=== PATIENT | female | born 1980 | race Two or more races ===

== ENCOUNTER 2020-02-29 14:47 | Outpatient (REF) | payer OTHER, SELFPAY | END 2020-02-29 14:48 | disposition home or self-care (01) | LOC: HO.LAB 14:47 | PROVIDERS: Visit Provider Internal Medicine | DX: Z20.822 Contact with and (suspected) exposure to COVID-19 (principal) | CPT/HCPCS: 36415; C9803; U0003 ==

== ENCOUNTER 2023-12-26 13:31 | Outpatient (AMB) | payer OTHER, SELFPAY ==
[2023-12-26 13:33] VITALS: BP 104/90; PULSE 95; O2SAT 96; BMI 21.6
--- NOTE | 2023-12-26 13:33 | MHC.PC.OV ---
Vital Signs 12/26/23 13:33 Height 5 ft 5 in Weight 130 lb 0.6 oz BMI 21.6 BP 104/90 H Blood Pressure Location Lt brachial Position Sitting Pulse 95 Pulse Source Pulse Oximeter Pulse Oximetry (%) 96 Oxygen Delivery Method Room Air Intake Visit Reasons: New Patient Traffic Supervisor Required: Yes Traffic Supervisor Language: Welsh Allergies fentanyl patch Allergy (Mild, Uncoded 12/26/23 13:59) Dizziness Medication List - Last Reconciled 12/26/23 by Silvia Grady PA-C baclofen 10 mg PO TID bupropion HCl XL 300 mg PO QAM butalbital-acetaminophen 50-325 mg 1 tab PO Q4H PRN diaper,brief,adult,disposable (Wings Choice Plus Adult Briefs) As directed diclofenac sodium 1% 2 grams topical BID diphenhydramine HCl 50 mg PO BEDTIME diphenoxylate-atropine 2.5-0.025 mg 1 tab PO QID PRN dronabinol 5 mg PO BID duloxetine 30 mg PO DAILY gabapentin 600 mg PO TID hydrocortisone 2.5% 1 appl topical BID PRN hydroxyzine HCl 25 mg PO TID PRN lidocaine 5% 1 patch topical DAILY lidocaine 4% 1 appl topical DAILY PRN loratadine 10 mg PO DAILY lorazepam 0.5 mg PO BEDTIME PRN megestrol 5 mL PO DAILY multivitamin 1 tab PO DAILY omeprazole 40 mg PO DAILY sucralfate 10 mL PO QID sumatriptan succinate 50 mg PO Q2-4H PRN topiramate 50 mg PO BID tramadol 50 mg PO TID PRN trazodone 50 mg PO BEDTIME PRN Tobacco use date assessed: 12/26/23 Dental Screening Dental Screen Date: 12/26/23 Did you have a dental visit in the last 12 months?: Yes Did you have a dental problem in the last 6 months where you did not have access to dental care?: No Was dental information given to patient?: Patient has dentist HPI New Patient HPI Details 43-year-old female coming to the office for the 1st time. In review of the notes, patient follows with gynecology/oncology with [facility] for history of cervical cancer underwent treatment in [place] in 2016 with cisplatin and whole pelvic radiation and discharge to normal gynecological care. She was last seen by Gynecology/Oncology 10/21/2023 after having some vaginal bleeding at which time Pap was collected and recommended to follow up in 1 year. Patient was seen by [facility] last seen 2021 for history of pericarditis with pericardial effusion and chronic chest pain CT of the chest was negative and EKG normal advised to undergo ECHO. Patient was also seen by [facility] last seen 03/04/2022 for chronic headaches advised to undergo MRI. Patient is unsure if she underwent echocardiogram or MRI in the past in his overall a poor historian regarding her health. She does follow with a psychiatrist and therapist for ongoing depression and anxiety and has a sleep study scheduled for January. She was seen in [facility] and was given referral to [facility] and referred for mammogram. She has not yet had a colonoscopy despite being scheduled for 1 with [facility]. Ambulates at baseline with a cane. [facility] Medical History Uterine cancer Social History Housing: House Patient Tobacco Use Status: Never used Tobacco service: No Current occupational status: disabled Cognitive needs: No Hearing needs: No Vision needs: No Questionnaire PHQ-9 Over the last 2 weeks, how often have you been bothered by any of the following problems? 1. Little interest or pleasure in doing things: more than half the days 2. Feeling down, depressed, or hopeless: more than half the days 3. Trouble falling or staying asleep, or sleeping too much: several days 4. Feeling tired or having little energy: several days 5. Poor appetite or overeating: several days 6. Feeling bad about yourself - or that you are a failure or have let yourself or your family down: several days 7. Trouble concentrating on things, such as reading the newspaper or watching television: more than half the days 8. Moving or speaking so slowly that other people could have noticed. Or the opposite - being so fidgety or restless that you have been moving around a lot more than usual: several days 9. Thoughts that you would be better off or of hurting yourself in some way: not at all Total score: 11 Depression Screening Interpretation: Negative Depression Screening Done: Yes 39903 - PHQ-9 Billing: Yes Source: Developed by Drs. Vera Tarvis Kurt Kroenke and colleagues, with an educational florence from [employer]. Thrive Questionnaire Date Thrive assessed: 12/26/23 I am a: Patient What is your living situation today?: I choose not to answer this question Within the past 12 months, did the food you bought not last and you didn't have the money to get more?: Sometimes True Within the past 12 months, did you worry whether your food would run out before you got money to buy more?: Sometimes True Do you have trouble paying for medicines?: I choose not to answer this question Do you have trouble getting transportation to medical appointments?: I choose not to answer this question Do you have trouble paying your heating and electricity bill?: I choose not to answer this question Do you have trouble taking care of your child, family member or friend?: No Do you have trouble with day-to-day activities such as bathing, preparing meals, shopping, managing finances, etc.?: No Are you currently unemployed and looking for a job?: Yes Are you interested in more education?: I choose not to answer this question Please select the resources that you would like help with: None Currently or been in a relationship where the following occur: No concerns reported THRIVE Score: 2 AUDIT C Alcohol Use Questionnaire (AUDIT-C) 1. How often do you have a drink containing alcohol?: Never 3. How often do you have six or more drinks on one occasion?: Never Total Score: 0 HARVINDER-7 AMB Questionnaire HARVINDER-7 Date HARVINDER - 7 assessed: 12/26/23 Feeling nervous, anxious, or on edge: 1 = Several days Not being able to stop or control worryin = Several days Worrying too much about different things: 1 = Several days Trouble relaxin = More than half the days Being so restless that it is hard to sit still: 2 = More than half the days Becoming easily annoyed or irritable: 2 = More than half the days Feeling afraid as if something awful might happen: 1 = Several days Total HARVINDER-7 score (0-4 normal; 5-9 mild; 10-14 moderate; 15-21 severe): 10 Source: Developed by Vera Light Kurt Kroenke and colleagues, with an educational florence from [employer]. HARVINDER-7 Assessment Billing HARVINDER-7 Assessment Tool: HARVINDER-7 Assessment 51183 Review of Systems Const Denies body aches, Denies fatigue, Denies fever(s), Denies frequent falls, Denies headache(s) and Denies weakness Eyes Reports no additional complaints and Denies change in vision ENT Denies dizziness, Denies facial pain, Denies headache(s) and Denies nasal congestion Card Reports chest pain (Chronic), Denies syncope, Denies irregular heart rhythm, Denies leg edema, Denies lightheadedness and Denies dyspnea Resp Denies cough and Denies dyspnea GI Denies constipation, Denies dyspepsia, Reports diarrhea, Denies nausea and Denies vomiting Denies urinary frequency, Denies dysuria, Denies urinary hesitancy and Denies urinary urgency Musc Denies back pain and Denies myalgias Skin/Breast Reports system reviewed and no additional complaints, except as documented Neuro Denies dizziness, Denies syncope, Denies frequent falls, Denies headache(s) and Denies weakness Psych Reports no additional complaints Endo Denies fatigue Physical exam (Primary Care) Vital Signs: Last Vital Signs Pulse 95 12/26/23 13:33 BP 104/90 H 12/26/23 13:33 Pulse Ox 96 12/26/23 13:33 Oxygen Delivery Method Room Air 12/26/23 13:33 BMI result Body Mass Index 21.6 Tobacco/Smoking Status: Tobacco use Status Tobacco use date assessed 12/26/23 12/26/23 13:38 Patient Tobacco Use Status Never used Tobacco 12/26/23 13:55 PHQ-9: PHQ-9 Score PHQ-9: Total score 11 12/26/23 13:55 Depression Screening Interpretation: Negative Thrive Assessment: Date of Thrive Assessment Date Thrive assessed 12/26/23 12/26/23 13:38 Currently or been in a relationship where the following occur: No concerns reported Const General: cooperative, healthy appearing, comfortable and no acute distress Orientation/consciousness: patient oriented x3 HENMT Head: Yes normocephalic Ears: hearing grossly normal bilaterally General nose exam: Normal external nose present Eyes General: appearance normal, both eyes and all related structures Conjunctivae: conjunctivae normal Neck Neck: Yes full ROM and Yes no lymphadenopathy Resp Effort & Inspection: normal respiratory effort Auscultation: clear to auscultation bilaterally, no crackles, no rales, no rhonchi and no wheezes Cardio Rate: regular rate Rhythm: regular rhythm Skin General skin exam: no rashes or lesions noted Neuro General: patient oriented x3 Gait exam (Neuro): Normal gait present Extrem General: Yes normal to inspection, Yes full ROM and No edema Psych Affect: normal affect Attitude: cooperative Insight: Good insight present (Psych) Judgement: Good judgement present (Psych) Coding Level of Care Code New Pt Level 4 (70752) Diagnoses Depression F32.A Anxiety F41.9 Uterine cancer C55 GERD (gastroesophageal reflux disease) K21.9 Migraine G43.909 Atypical chest pain R07.89 Additional Codes HARVINDER-7 Assessment Billing - HARVINDER-7 Assessment Tool: HARVINDER-7 Assessment 00612 ([id number]) PHQ-9 - 12903 - PHQ-9 Billing: Yes ([id number]) Assessment & Plan Assessment & Plan (1) Depression: Comment: Has therapist Code(s): F32.A - Depression, unspecified Category: Medical Plan: Continue to follow with therapist and continue on current medication regimen as prescribed by Psychiatry. (2) Anxiety: Comment: therapist and psychiatrist Code(s): F41.9 - Anxiety disorder, unspecified Category: Medical Plan: Continue to follow with therapist and psychiatrist twice weekly and continue on current medication regimen (3) Uterine cancer: Comment: Initial diagnosis and treatment in [place] in 2016 having weekly cisplatin in whole pelvic radiation followed by 6 cycles of carbo/Taxol CT scan of abdomen and pelvis done 12/18/2015 no evidence of metastatic disease in remission since 2016 Code(s): C55 - Malignant neoplasm of uterus, part unspecified Category: Medical Plan: Continue to follow with gynecology oncology advised to follow up yearly for routine Pap smears. (4) GERD (gastroesophageal reflux disease): Code(s): K21.9 - Gastro-esophageal reflux disease without esophagitis Category: Medical Plan: Avoid trigger foods such as citrus, tomato products, soda, caffeine, spicy foods and other foods that may be irritating to your stomach. Avoid laying flat 3-4 hours after eating and elevate the head of the bed 30 degrees to prevent acid from moving into the esophagus. Continue on omeprazole 40 (5) Migraine: Code(s): G43.909 - Migraine, unspecified, not intractable, without status migrainosus Category: Medical Plan: Previously seen by [facility] and was advised to have MRI which was never completed and has not been rescheduled. Advised patient to follow up with her neurologist to have an additional study. Currently on topiramate given by Neurology. (6) Atypical chest pain: Code(s): R07.89 - Other chest pain Category: Medical Plan: Patient having atypical chest pain nonexertional without any other symptoms. Chest pain will come and go and appears to be chronic. She has been evaluated by [facility] in the past last seen 2021 chest pain was not thought to be cardiac at that time and plan to have echo performed. Patient unclear if echo was performed and would like a referral to a new anesthesia technician. She was referred to [facility] by [facility] and advised to reach out an make this appointment. Patient agrees to follow up if appointment cannot be made. Plan Given that patient is a poor historian we will continue to reach out to [facility] for records. This note was constructed using voice recognition software. While every effort has been made to ensure accuracy and automotive vehicle inspector, still areas may have been included sometimes these areas may affect the content or meeting of the given symptoms. Total time spent caring for the patient today was 30 minutes. This includes time spent before the visit reviewing the chart, time spent during the visit, and time spent after the visit and documentation. Orders: Referrals Gastroenterology Referral Z12.11 - Encounter for screening for malignant neoplasm of colon
== END 2023-12-26 14:24 | disposition home or self-care (01) ==
DX: F32.A Depression, unspecified (principal); F41.9 Anxiety disorder, unspecified; C55 Malignant neoplasm of uterus, part unspecified; K21.9 Gastro-esophageal reflux disease without esophagitis; G43.909 Migraine, unspecified, not intractable, without status migrainosus; R07.89 Other chest pain

== ENCOUNTER → 2023-12-26 13:31 | Outpatient (BNVA) | payer OTHER, SELFPAY | DX: F32.A Depression, unspecified (principal); F41.9 Anxiety disorder, unspecified; C55 Malignant neoplasm of uterus, part unspecified; K21.9 Gastro-esophageal reflux disease without esophagitis; G43.909 Migraine, unspecified, not intractable, without status migrainosus; R07.89 Other chest pain | CPT/HCPCS: 96127; 99202 ==

== ENCOUNTER 2024-01-30 14:03 | Outpatient (AMB) | payer OTHER, SELFPAY ==
--- NOTE | 2024-01-30 14:07 | MHC.PC.OV ---
Vital Signs 01/30/24 14:08 Height 5 ft 5 in Weight 130 lb 2 oz BMI 21.7 BP 122/76 Blood Pressure Location Rt brachial Position Sitting Pulse 95 Pulse Source Pulse Oximeter Pulse Oximetry (%) 96 Oxygen Delivery Method Room Air Intake Visit Reasons: headaches and pain on her neck Intake Note: Patient is here to follow up on Headaches and pain in neck that radiates down to shoulder. Equity Manager Required: Yes Equity Manager Language: Strategic Sourcing Specialist Name: Arely Barbosa ([id number]) Information Interpreted: non-clinical & clinical Duct Layer: Not Required per policy Accompanied by: Self / Same As Patient Allergies fentanyl patch Allergy (Mild, Uncoded 01/30/24 14:08) Dizziness Medication List - Last Reconciled 01/30/24 by Silvia Grady PA-C baclofen 10 mg PO TID bupropion HCl XL 300 mg PO QAM butalbital-acetaminophen 50-325 mg 1 tab PO Q4H PRN diaper,brief,adult,disposable (Wings Choice Plus Adult Briefs) As directed diclofenac sodium 1% 2 grams topical BID diphenhydramine HCl 50 mg PO BEDTIME diphenoxylate-atropine 2.5-0.025 mg 1 tab PO QID PRN dronabinol 5 mg PO BID duloxetine 30 mg PO DAILY gabapentin 600 mg PO TID hydrocortisone 2.5% 1 appl topical BID PRN hydroxyzine HCl 25 mg PO TID PRN lidocaine 5% 1 patch topical DAILY lidocaine 4% 1 appl topical DAILY PRN loratadine 10 mg PO DAILY lorazepam 0.5 mg PO BEDTIME PRN megestrol 5 mL PO DAILY multivitamin 1 tab PO DAILY omeprazole 40 mg PO DAILY sucralfate 10 mL PO QID sumatriptan succinate 50 mg PO Q2-4H PRN topiramate 50 mg PO BID tramadol 50 mg PO TID PRN trazodone 50 mg PO BEDTIME PRN Tobacco use date assessed: 01/30/24 Dental Screening Dental Screen Date: 12/26/23 HPI headaches and pain on her neck HPI Details 43-year-old female with past medical history of uterine cancer, anxiety, depression, migraine, GERD last seen December 2023 coming in for acute problem. Patient is Niuean-speaking only and language interpreter was used for the duration of this visit [id number] Angel. Patient has a long history of migraines and was previously on preventative and abortive medication given by her PCP. Patient was also evaluated by Neurology in the past and had medication prescribed by them. She states she has been having headaches intermittently and we will have occasional migraines. She will have migraines at least once weekly and sometimes last several days. She does mentioned in the last several weeks they have been decreasing in frequency and intensity. She states she mainly gets the migraines at night and states she also feels hot inside at night but denies any sweating or fevers. She states she has been having this heat feeling since she finished chemoradiation in 2016. She also mentions having right-sided neck and shoulder pain which has been ongoing for the last 2 years since she had a fall in the bathtub and has never had any imaging or workup for this concern. [facility] Medical History Uterine cancer Social History Housing: House Alcohol intake: never Patient Tobacco Use Status: Never used Tobacco e-Cigarette/Vaping Use: Never Used Second Hand Smoke Exposure: No service: No Current occupational status: disabled Cognitive needs: No Hearing needs: No Vision needs: No Questionnaire Thrive Questionnaire Date Thrive assessed: 12/26/23 I am a: Patient What is your living situation today?: I choose not to answer this question Within the past 12 months, did the food you bought not last and you didn't have the money to get more?: Sometimes True Within the past 12 months, did you worry whether your food would run out before you got money to buy more?: Sometimes True Do you have trouble paying for medicines?: I choose not to answer this question Do you have trouble getting transportation to medical appointments?: I choose not to answer this question Do you have trouble paying your heating and electricity bill?: I choose not to answer this question Do you have trouble taking care of your child, family member or friend?: No Do you have trouble with day-to-day activities such as bathing, preparing meals, shopping, managing finances, etc.?: No Are you currently unemployed and looking for a job?: Yes Are you interested in more education?: I choose not to answer this question Please select the resources that you would like help with: None Currently or been in a relationship where the following occur: No concerns reported THRIVE Score: 2 HARVINDER-7 AMB Questionnaire HARVINDER-7 Date HARVINDER - 7 assessed: 12/26/23 Source: Developed by Drs. Cale Jaramillo, Vera Lopez, Enrico De Dios and colleagues, with an educational florence from [employer]. Review of Systems Const Details: Feels ?hot? at nighttime Denies body aches, Denies chills, Denies fever(s), Reports headache(s), Denies night sweats, Denies poor appetite and Denies weight loss Eyes Reports no additional complaints ENT Denies dizziness and Reports headache(s) Card Denies chest pain, Denies syncope, Denies edema, Denies irregular heart rhythm, Denies lightheadedness and Denies dyspnea Resp Denies cough and Denies dyspnea GI Denies abdominal pain, Denies constipation, Denies diarrhea, Denies nausea and Denies vomiting Reports no additional complaints Musc Details: Right-sided neck pain and right shoulder pain Reports no additional complaints and Denies abnormal gait Skin/Breast Reports system reviewed and no additional complaints, except as documented Neuro Denies abnormal gait, Denies dizziness, Denies syncope and Reports headache(s) Psych Reports no additional complaints Physical exam (Primary Care) Tobacco/Smoking Status: Tobacco use Status Tobacco use date assessed 12/26/23 12/26/23 13:38 Patient Tobacco Use Status Never used Tobacco 01/30/24 14:07 Thrive Assessment: Date of Thrive Assessment Date Thrive assessed 12/26/23 12/26/23 13:38 Currently or been in a relationship where the following occur: No concerns reported Const General: cooperative, healthy appearing, comfortable and no acute distress Orientation/consciousness: patient oriented x3 HENMT Head: Yes normocephalic Ears: hearing grossly normal bilaterally General nose exam: Normal external nose present Eyes General: appearance normal, both eyes and all related structures Conjunctivae: conjunctivae normal Neck Other: Tenderness to palpation over right trapezius muscle and sternocleidomastoid Neck: Yes full ROM and Yes no lymphadenopathy Resp Effort & Inspection: normal respiratory effort Auscultation: clear to auscultation bilaterally, no crackles, no rales, no rhonchi and no wheezes Cardio Rate: regular rate Rhythm: regular rhythm Skin General skin exam: no rashes or lesions noted Neuro General: patient oriented x3 Gait exam (Neuro): Normal gait present Extrem Other: Tenderness to palpation over entirety of right shoulder primarily in the AC joint. General: Yes normal to inspection, Yes full ROM and No edema Psych Affect: normal affect Attitude: cooperative Insight: Good insight present (Psych) Judgement: Good judgement present (Psych) Coding Level of Care Code Est Pt Level 3 (60341) Diagnoses Right shoulder pain M25.511 Neck pain M54.2 Migraine G43.909 Assessment & Plan Assessment & Plan (1) Right shoulder pain: Code(s): M25.511 - Pain in right shoulder Category: Medical Plan: Ordered for x-ray for further evaluation. Advised patient she can use baclofen as needed at bedtime for nighttime pain. Referral placed to physical therapy. (2) Neck pain: Code(s): M54.2 - Cervicalgia Category: Medical Plan: Ordered for x-ray for further evaluation. Advised patient she can use baclofen as needed at bedtime for nighttime pain. Referral placed to physical therapy. (3) Migraine: Code(s): G43.909 - Migraine, unspecified, not intractable, without status migrainosus Category: Medical Plan: Patient has history of migraines and was previously being evaluated by a neurologist and would like to transfer care. Referral placed for Neurology today. We will restart on topiramate daily for migraine prevention and sumatriptan as needed for abortive medicine. Patient was previously on this regimen and found it helpful. Plan This note was constructed using voice recognition software. While every effort has been made to ensure accuracy and machine ii engraver, still areas may have been included sometimes these areas may affect the content or meeting of the given symptoms. Total time spent caring for the patient today was 20 minutes. This includes time spent before the visit reviewing the chart, time spent during the visit, and time spent after the visit and documentation. Orders: Orders XR shoulder RT min 2V Today M25.511 - Pain in right shoulder, M54.2 - Cervicalgia XR cervical spine 2V Today M25.511 - Pain in right shoulder, M54.2 - Cervicalgia PT Evaluation and Treatment Today M25.511 - Pain in right shoulder, M54.2 - Cervicalgia Referrals Neurology Referral G43.909 - Migraine, unspecified, not intractable, without status migrainosus Medications: New sumatriptan succinate do not exceed 4 doses per 24 hrs 50 mg PO Q2-4H PRN 14 tabs 1RF migraine headache topiramate 25 mg PO DAILY 30 tabs 1RF Changed From baclofen 10 mg PO TID To baclofen 10 mg PO BEDTIME PRN 14 tabs 0RF muscle spasm
[2024-01-30 14:08] VITALS: BP 122/76; PULSE 95; O2SAT 96; BMI 21.7
== END 2024-01-30 14:58 | disposition home or self-care (01) ==
DX: M25.511 Pain in right shoulder (principal); M54.2 Cervicalgia; G43.909 Migraine, unspecified, not intractable, without status migrainosus

== ENCOUNTER → 2024-01-30 14:03 | Outpatient (BNVA) | payer OTHER, SELFPAY | DX: M54.2 Cervicalgia (principal); M25.511 Pain in right shoulder; K21.9 Gastro-esophageal reflux disease without esophagitis; G43.909 Migraine, unspecified, not intractable, without status migrainosus | CPT/HCPCS: 99212 ==

== ENCOUNTER 2024-03-29 16:00 | Outpatient (AMB) | payer OTHER, SELFPAY ==
--- NOTE | 2024-03-29 16:02 | MHC.PC.OV ---
Vital Signs 03/29/24 16:05 Height 5 ft 5 in Weight 135 lb 4 oz BMI 22.5 BP 122/84 Blood Pressure Location Lt brachial Position Sitting Pulse 84 Pulse Source Pulse Oximeter Temp Source Temporal Artery Scan Pulse Oximetry (%) 95 Oxygen Delivery Method Room Air Intake Visit Reasons: Annual Exam Intake Note: Patient is here today for a physical. Char Filter Operator Helper Required: Yes Char Filter Operator Helper Language: Dominican Accompanied by: Self / Same As Patient Allergies fentanyl patch Allergy (Mild, Uncoded 03/29/24 16:09) Dizziness Medication List - Last Reconciled 03/29/24 by Silvia Grady PA-C baclofen 10 mg PO BEDTIME PRN bupropion HCl XL 300 mg PO QAM butalbital-acetaminophen 50-325 mg 1 tab PO Q4H PRN diaper,brief,adult,disposable ([employer] Adult Briefs) As directed diclofenac sodium 1% 2 grams topical BID diphenhydramine HCl 50 mg PO BEDTIME diphenoxylate-atropine 2.5-0.025 mg 1 tab PO QID PRN dronabinol 5 mg PO BID duloxetine 30 mg PO DAILY hydrocortisone 2.5% 1 appl topical BID PRN hydroxyzine HCl 25 mg PO TID PRN lidocaine 5% 1 patch topical DAILY lidocaine 4% 1 appl topical DAILY PRN loratadine 10 mg PO DAILY lorazepam 0.5 mg PO BEDTIME PRN megestrol 5 mL PO DAILY multivitamin 1 tab PO DAILY omeprazole 40 mg PO DAILY sucralfate 10 mL PO QID sumatriptan succinate 50 mg PO Q2-4H PRN topiramate 25 mg PO DAILY tramadol 50 mg PO TID PRN trazodone 50 mg PO BEDTIME PRN Tobacco use date assessed: 03/29/24 Dental Screening Dental Screen Date: 03/29/24 Did you have a dental visit in the last 12 months?: No Did you have a dental problem in the last 6 months where you did not have access to dental care?: No Was dental information given to patient?: Patient has dentist HPI Annual Exam HPI Details 43-year-old female with past medical history uterine cancer, anxiety, depression, migraine, GERD last seen 01/2024 coming in for annual exam. At her last visit was started on topiramate for migraine prevention and sumatriptan for abortive medication. She has an appointment with Neurology 07/2024. planned giving officer was used for the duration of this visit. Magdy [id number]. Mammogram in [facility] follows regularly pap will be done July Presenting with heartburn, headache, and fever; linked to previous fall injuries. Reports persistent issues with neck due to a fall 2 years ago. Patient has not yet completed the x-rays and physical therapy has not been scheduled at this time. Significant reflux symptoms, particularly in the morning, include heartburn, nausea, and diarrhea, likely aggravated by late eating habits. Headache management initiated with topiramate in past, but further details about the regimen are unclear to the patient; further, headaches have decreased in frequency but remain an issue. Reports sensations of internal fever with varied frequency and duration, linked to a chemotherapy which ended in 2015. Symptoms of dysphagia lead to frequent suffocation sensations. Fibromyalgia diagnosis history corroborates reports of muscle cramps and numbness. [facility] Medical History Uterine cancer Social History Housing: House Alcohol intake: never Patient Tobacco Use Status: Never used Tobacco e-Cigarette/Vaping Use: Never Used Second Hand Smoke Exposure: No service: No Current occupational status: disabled Cognitive needs: No Hearing needs: No Vision needs: No Questionnaire PHQ-9 Over the last 2 weeks, how often have you been bothered by any of the following problems? 1. Little interest or pleasure in doing things: several days 2. Feeling down, depressed, or hopeless: more than half the days 3. Trouble falling or staying asleep, or sleeping too much: more than half the days 4. Feeling tired or having little energy: more than half the days 5. Poor appetite or overeating: more than half the days 6. Feeling bad about yourself - or that you are a failure or have let yourself or your family down: not at all 7. Trouble concentrating on things, such as reading the newspaper or watching television: more than half the days 8. Moving or speaking so slowly that other people could have noticed. Or the opposite - being so fidgety or restless that you have been moving around a lot more than usual: not at all 9. Thoughts that you would be better off or of hurting yourself in some way: not at all Total score: 11 Depression Screening Interpretation: Positive Depression Screening Follow-up: Existing condition and In treatment Depression Screening Done: Yes 20983 - PHQ-9 Billing: Yes Source: Developed by Drs. Cale Jaramillo, Vera Lopez, Enrico De Dios and colleagues, with an educational florence from [employer]. Thrive Questionnaire Date Thrive assessed: 03/29/24 I am a: Patient What is your living situation today?: I have a steady place to live Within the past 12 months, did the food you bought not last and you didn't have the money to get more?: Sometimes True Within the past 12 months, did you worry whether your food would run out before you got money to buy more?: Sometimes True Do you have trouble paying for medicines?: I choose not to answer this question Do you have trouble getting transportation to medical appointments?: I choose not to answer this question Do you have trouble paying your heating and electricity bill?: Yes Do you have trouble taking care of your child, family member or friend?: I choose not to answer this question Do you have trouble with day-to-day activities such as bathing, preparing meals, shopping, managing finances, etc.?: I choose not to answer this question Are you currently unemployed and looking for a job?: Yes Are you interested in more education?: I choose not to answer this question Please select the resources that you would like help with: None Currently or been in a relationship where the following occur: No concerns reported THRIVE Score: 3 AUDIT C Alcohol Use Questionnaire (AUDIT-C) 1. How often do you have a drink containing alcohol?: Never 3. How often do you have six or more drinks on one occasion?: Never Total Score: 0 HARVINDER-7 AMB Questionnaire HARVINDER-7 Date HARVINDER - 7 assessed: 03/29/24 Feeling nervous, anxious, or on edge: 0 = Not at all Not being able to stop or control worryin = Not at all Worrying too much about different things: 1 = Several days Trouble relaxin = Several days Being so restless that it is hard to sit still: 1 = Several days Becoming easily annoyed or irritable: 1 = Several days Feeling afraid as if something awful might happen: 1 = Several days Total HARVINDER-7 score (0-4 normal; 5-9 mild; 10-14 moderate; 15-21 severe): 5 Source: Developed by Drs. Cale Jaramillo, Vera Lopez, Enrico De Dios and colleagues, with an educational florence from [employer]. HARVINDER-7 Assessment Billing HARVINDER-7 Assessment Tool: HARVINDER-7 Assessment 31998 Review of Systems Const Reports body aches, Denies chills, Denies fever(s), Reports headache(s) and Denies poor appetite Eyes Reports no additional complaints ENT Details: heat feeling in the mouth Reports dysphagia, Denies dizziness, Reports headache(s) and Denies odynophagia Card Denies chest pain, Denies syncope, Denies edema, Denies irregular heart rhythm, Denies lightheadedness and Denies dyspnea Resp Denies cough and Denies dyspnea GI Reports abdominal pain, Denies constipation, Reports dysphagia, Reports diarrhea, Denies nausea, Denies odynophagia and Denies vomiting Reports no additional complaints Musc Reports abnormal gait, Reports back pain, Reports arthralgias, Reports muscle cramps and Reports muscle weakness Skin/Breast Reports system reviewed and no additional complaints, except as documented Neuro Reports abnormal gait, Denies dizziness, Denies syncope and Reports headache(s) Psych Reports no additional complaints Physical exam (Primary Care) Vital Signs: Last Vital Signs Pulse 84 03/29/24 16:05 BP 122/84 03/29/24 16:05 Pulse Ox 95 03/29/24 16:05 Oxygen Delivery Method Room Air 03/29/24 16:05 BMI result Body Mass Index 22.5 Tobacco/Smoking Status: Tobacco use Status Tobacco use date assessed 03/29/24 03/29/24 16:03 Patient Tobacco Use Status Never used Tobacco 03/29/24 16:03 e-Cigarette/Vaping Use Never Used 03/29/24 16:03 PHQ-9: PHQ-9 Score PHQ-9: Total score 11 03/30/24 10:12 Depression Screening Interpretation: Positive Depression Screening Follow-up: Existing condition and In treatment Thrive Assessment: Date of Thrive Assessment Date Thrive assessed 03/29/24 03/29/24 16:03 Currently or been in a relationship where the following occur: No concerns reported Const General: cooperative, healthy appearing, comfortable and no acute distress Orientation/consciousness: patient [facility]: Yes normocephalic Ears: hearing grossly normal bilaterally, external ears normal, TM's normal bilaterally and EAC's normal General nose exam: Normal external nose present Face and sinus: Yes normal facial exam and Yes sinuses nontender Mouth: Normal oral and palatal mucosa present and tongue normal Throat: Yes posterior oropharynx normal Eyes General: appearance normal, both eyes and all related structures Conjunctivae: conjunctivae normal Pupils: Equal, round and reactive pupils present EOM: EOMs intact bilaterally and No Nystagmus present Neck Neck: Yes normal visual inspection, Yes full ROM and Yes no lymphadenopathy Chest Other: Pain to palpation over right ribs Chest palpation & inspection: normal inspection of the chest Resp Effort & Inspection: normal respiratory effort Auscultation: clear to auscultation bilaterally, no crackles, no rales, no rhonchi, no wheezes and breath sounds present Cardio Rate: regular rate Rhythm: regular rhythm Peripheral pulses: radial pulses present and dorsalis pedis present GI Inspection: Yes normal to inspection and No Abdominal wall edema Palpation (GI): Soft to palpation, not firm and nontender Auscultation: normal bowel sounds Rectal Exam - Female: deferred General: Yes no CVA tenderness Back/Spine/Pelvis Back: no CVA tenderness Skin General skin exam: no rashes or lesions noted Neuro General: patient oriented x3 Cranial nerves: Yes Equal, round and reactive pupils present, Yes Midline tongue present, Yes Ability to bilaterally elevate shoulders present and No Nystagmus present Gait exam (Neuro): Normal gait present Extrem Other: Tenderness to palpation over entirety of right shoulder and right trapezius muscle. General: Yes normal to inspection, Yes full ROM, No no pedal edema and No edema Psych Speech and movement: Normal speech and movement present Affect: normal affect Insight: Good insight present (Psych) Judgement: Good judgement present (Psych) Coding Level of Care Code Est Pt Level 4 (28783) Est Pt Prev Care 40-64y(93150) Diagnoses GERD (gastroesophageal reflux disease) K21.9 Right shoulder pain M25.511 Migraine G43.909 Depression F32.A Anxiety F41.9 Uterine cancer C55 Annual physical exam Z00.00 Screening for hypercholesterolemia Z13.220 Rib pain on right side R07.81 Fibromyalgia M79.7 Dysphagia R13.10 Additional Codes HARVINDER-7 Assessment Billing - HARVINDER-7 Assessment Tool: HARVINDER-7 Assessment 35216 ([id number]) PHQ-9 - 39286 - PHQ-9 Billing: Yes ([id number]) Assessment & Plan Assessment & Plan (1) GERD (gastroesophageal reflux disease): Code(s): K21.9 - Gastro-esophageal reflux disease without esophagitis Category: Medical Plan: Avoid trigger foods such as citrus, tomato products, soda, caffeine, spicy foods and other foods that may be irritating to your stomach. Avoid laying flat 3-4 hours after eating and elevate the head of the bed 30 degrees to prevent acid from moving into the esophagus. Patient has not been taking omeprazole plan to restart on omeprazole 40 mg for management of GERD. (2) Right shoulder pain: Code(s): M25.511 - Pain in right shoulder Category: Medical Plan: Patient having continued right shoulder pain since a fall 2 years ago in the bathtub but did advise patient to have x-ray done which was not yet completed. Reminded patient about Radiology orders and advised to follow up with physical therapy. (3) Migraine: Code(s): G43.909 - Migraine, unspecified, not intractable, without status migrainosus Category: Medical Plan: Patient is unclear if she is taking her topiramate but does state since starting on a medication she has seen good relief of her migraines. She is also unclear if she is taking her sumatriptan. Confirm headache management plans, including ensuring adherence to topiramate therapy and sumatriptan use as required, and consider a neurology consultation. She was referred to Neurology at her last visit. (4) Depression: Comment: Has therapist Code(s): F32.A - Depression, unspecified Category: Medical Plan: Patient currently following with a therapist and psychiatrist for management of her medications. Continue on current medication regimen. (5) Anxiety: Comment: therapist and psychiatrist Code(s): F41.9 - Anxiety disorder, unspecified Category: Medical Plan: Patient currently following with a therapist and psychiatrist for management of her medications. Continue on current medication regimen. (6) Uterine cancer: Comment: Initial diagnosis and treatment in [place] in 2016 having weekly cisplatin in whole pelvic radiation followed by 6 cycles of carbo/Taxol CT scan of abdomen and pelvis done 12/18/2015 no evidence of metastatic disease in remission since 2015 Code(s): C55 - Malignant neoplasm of uterus, part unspecified Category: Medical Plan: Previously following with [facility] gynecology has not been seen in several months patient has new appointment scheduled for [facility] [place] for July 2024. (7) Annual physical exam: Code(s): Z00.00 - Encounter for general adult medical examination without abnormal findings Category: Medical Plan: Patient is up-to-date on all recommended routine screenings and vaccinations for her age. She follows with mammograms through [facility] and has 1 scheduled for this year and will be seeing the physician interventional cardiologist in July for routine Pap smears. Otherwise is up-to-date on all of her vaccinations. Healthy diet and regular exercise is encouraged. (8) Screening for hypercholesterolemia: Code(s): Z13.220 - Encounter for screening for lipoid disorders Category: Medical Plan: Ordered for blood work (9) Rib pain on right side: Code(s): R07.81 - Pleurodynia Category: Medical Plan: Patient complaining of rib pain on the right side unclear of start date patient states it has been exacerbated by recent movement. Ordered for chest x-ray with rib series. (10) Fibromyalgia: Code(s): M79.7 - Fibromyalgia Category: Medical Plan: Patient has history of fibromyalgia on many different medications. She does not have a welfare analyst and referral was placed today. (11) Dysphagia: Code(s): R13.10 - Dysphagia, unspecified Category: Medical Plan: Esophageal motility assessment is proposed to assess contributing factors to dysphagia. Advise resuming omeprazole for heartburn, with recommendations for dietary changes to mitigate symptoms. Barium swallow ordered Plan Patient was informed and verbally consented to the use of an ambient scribe for clinic note documentation during this visit. This note was constructed using voice recognition software. While every effort has been made to ensure accuracy and technology infusion specialist, still areas may have been included sometimes these areas may affect the content or meeting of the given symptoms. Total time spent caring for the patient today was 30 minutes. This includes time spent before the visit reviewing the chart, time spent during the visit, and time spent after the visit and documentation. Orders: Orders Comprehensive Met. Panel 03/29/24 G43.909 - Migraine, unspecified, not intractable, without status migrainosus, Z00.00 - Encounter for general adult medical examination without abnormal findings TSH reflex Free T4 03/29/24 G43.909 - Migraine, unspecified, not intractable, without status migrainosus, Z00.00 - Encounter for general adult medical examination without abnormal findings Vitamin B12 and Folate 03/29/24 G43.909 - Migraine, unspecified, not intractable, without status migrainosus, Z00.00 - Encounter for general adult medical examination without abnormal findings XR ribs BI min 4V w CXR1V 03/29/24 R07.81 - Pleurodynia Complete Blood Count Auto Diff 03/29/24 G43.909 - Migraine, unspecified, not intractable, without status migrainosus, Z00.00 - Encounter for general adult medical examination without abnormal findings Vitamin D 25-OH Total 03/29/24 G43.909 - Migraine, unspecified, not intractable, without status migrainosus, Z00.00 - Encounter for general adult medical examination without abnormal findings Free T4 (Free Thyroxine) 03/29/24 G43.909 - Migraine, unspecified, not intractable, without status migrainosus, Z00.00 - Encounter for general adult medical examination without abnormal findings Lipid Panel 03/29/24 Z13.220 - Encounter for screening for lipoid disorders [place] barium swallow 03/29/24 R13.10 - Dysphagia, unspecified Referrals Rheumatology Referral M79.7 - Fibromyalgia Medications: New omeprazole 40 mg PO DAILY 90 caps 1RF Refilled baclofen 10 mg PO BEDTIME PRN 14 tabs 0RF muscle spasm
--- OUTSIDE RECORDS SUMMARY | 2024-03-29 16:02 | XMS_ITS | Clinical Summary ---
Author Organization [facility] Address [address] [place] [address] Care Team Providers Care Field Placement Director Name Role Phone Harman Diomedes BETSY Primary Care Provider [phone]- [phone] Surgical History Surgery Date Site/Laterality Comments COLPOSCOPY PROCEDURE: [place] COLPOSCOPY ENTIRE VAGINA W/CERVIX IF PRESENT Medical History Medical History Date Comments Neuropathy 09/03/2017 DX:Neuropathy; C OMMENT: EMG pending through [facility]; ? If related to fibro or chemo Insomnia 09/03/2017 DX:Insomnia Anxiety and depression 09/03/2017 DX:Anxiet y and depression; COMMENT: Sees external psych, Dr Muñoz Fibromyalgia 09/03/2017 DX:Fibromyalgia; COMMENT: Follows with [facility] on duloxetine History of cervical cancer 09/03/2017 DX:Hi story of cervical cancer; COMMENT: Cervical cancer, FIGO stage IIIB (HCC) Dx 2016 in pR s/p chemo (taxol and carboplatin and XRT); reports active folow up with onc through [facility] Normal pap smear with HRHPV pos, neg 16/18/45 Dyspareunia, female 11/14/2017 DX:Dyspareun ia, female Hypotension 02/17/2018 DX:Hypotension; COMMENT: Syncopal episode - ER evaluation. Dehydration Leukopenia 11/13/2017 DX:Leukopenia Pelvic pain 11/14/2017 DX:Pelvic pain Trigger finger of left hand 02/17/2018 DX:T shot examiner finger of left hand; COMMENT: 07/29/17 referral to Hand Surgery Unsteady gait 02/17/2018 DX:Unsteady gait ; COMMENT: Frequent falls Xerosis of skin 02/17/2018 DX:Xerosis of sk in Family History Medical History Relation Name Comments Thyroid disease Mother Relation Name Status Comments Daughter 1 Alive Daughter 2 Alive Mother Son Alive Social History Tobacco Use Types Packs/Day Years Used Date Smoking Tobacco: Never Smokeless Tobacco: Never Alcohol Use Standard Drinks/Week Comments No 0 (1 standard drink = 0.6 oz pur e alcohol) Comments Unknown Sex and Gender Information Value Date Recorded Sex Assigned at Not on file Legal Sex Female 12:37 PM EST Gender Identity Not on file Sexual Orientation Not on file Obstetrics History Plan of Treatment Health Maintenance Due Date Last Done Comments DTaP,Tdap,and Td Vaccines (1 - Tdap) 11/20/1999 Hepatitis B Vaccines (1 of 3 - 19+ 3-dose series) 11/20/1999 Cervical Cancer Screening: P ap Smear 11/14/2018 11/14/2017 Breast Cancer Screening 05/15/2020 05/15/2018 Depression Screening 01/08/2022 HIV Screening 01/08/2022 Hepatitis C Screening 01/08/2022 Social Influencers of Health Screening 01/08/2022 COVID-19 Vaccine ( - 2023-2 5 season) 2023 Influenza Vaccine (#1) 2023 HIB Vaccines Aged Out No longer eligi ble based on patient's age to complete this topic HPV Vaccines Aged Out No longer eligi ble based on patient's age to complete this topic Hepatitis A Vaccines Aged Out No long er eligible based on patient's age to complete this topic IPV Vaccines Aged Out No longer eligi ble based on patient's age to complete this topic MMR Vaccines Aged Out No longer eligi ble based on patient's age to complete this topic Meningococcal ACWY Vaccine Aged Out N o longer eligible based on patient's age to complete this topic Meningococcal B Vacine Aged Out No lo nger eligible based on patient's age to complete this topic Pneumococcal Vaccine: Pediat rics (0 to 5 Years) and At-Risk Patients (6 to 64 Years) Aged Out No longer eligi ble based on patient's age to complete this topic RSV Immunization Patients Un rufus 20 months Aged Out No longer eligible b ased on patient's age to complete this topic Varicella Vaccines Aged Out No longer eligible based on patient's age to complete this topic Procedures Procedure Name Priority Date/Time Associated Diagnosis Comments DX MAMMO INCL CAD UNI Routine 05/15/2018 3:58 PM EDT Unspecified lump in unspecified breast PAP SMEAR Routine 11/14/2017 from Last 3 Months or Most Recently Relevant to Health Maintenance Results * DX MAMMO INCL CAD UNI (05/15/2018 3:58 PM EDT) Anatomical Region Laterality Modality Mammography 05/07/2018 3:00 PM EDT Narrative 05/15/2018 4:11 PM EDT This is a summary report. The complete report is available in the patient's medical record. If you cannot access the medical record, please contact the sending organization for a detailed fax or copy. BILATERAL DIGITAL DIAGNOSTIC MAMMOGRAM Indication: ??Left breast lump. Patient denies lump at this time, however reports itching at the upper outer quadrant. Patient currently undergoing chemotherapy for cervical cancer. Comparison: None available. Technique: Bilateral CC and MLO projections were obtained. CAD software was utilized during image interpretation. Findings: The breast tissue is heterogeneously dense, limiting sensitivity. A Port-A-Cath device is partially imaged over the right axilla on a single right MLO view. Diffuse patchy and nodular bilateral parenchymal pattern. No suspicious mass, architectural distortion or suspicious calcifications are identified. IMPRESSION: : Dense breast tissue, limiting the sensitivity of mammography. No mammographic evidence of malignancy. Sonographic evaluation to follow for complete diagnostic workup. LIMITED LEFT BREAST ULTRASOUND Findings: ??Focused sonographic evaluation of the left breast in the region of reported concern, at the 1:00 axis (upper outer quadrant), approximately 2 cm from the nipple, demonstrates dense parenchymal tissue with no solid mass or other suspicious sonographic findings. Impression: No sonographic abnormality. Imaging findings were reviewed in person with the patient at the time of the examination, via fire pot operator. Patient reported greatest concern at this time is itching in this region. Clinical management of persistent symptoms recommended. BIRADS 1-Negative; N. 5 year breast cancer risk assessment 0.2 % Lifetime breast cancer risk assessment 5.2 % Breast cancer risk category Low (<15%) Procedure Note Jessie Brunson, - 01/29/2022 This is a summary report. The complete report is available in thepatient's medical record. If you cannot access the medical record, pleasecontact the sending organization for a detailed fax or copy. BILATERAL DIGITAL DIAGNOSTIC MAMMOGRAM Indication: Left breast lump. Patient denies lump at this time, howeverreports itching at the upper outer quadrant. Patient currently undergoingchemotherapy for cervical cancer. Comparison: None available. Technique: Bilateral CC and MLO projections were obtained. CAD softwarewas utilized during image interpretation. Findings: The breast tissue is heterogeneously dense, limitingsensitivity. A Port-A-Cath device is partially imaged over the rightaxilla on a single right MLO view. Diffuse patchy and nodular bilateralparenchymal pattern. No suspicious mass, architectural distortion orsuspicious calcifications are identified. IMPRESSION: : Dense breast tissue, limiting the sensitivity of mammography. Nomammographic evidence of malignancy. Sonographic evaluation to follow forcomplete diagnostic workup. LIMITED LEFT BREAST ULTRASOUND Findings: Focused sonographic evaluation of the left breast in the regionof reported concern, at the 1:00 axis (upper outer quadrant),approximately 2 cm from the nipple, demonstrates dense parenchymal tissuewith no solid mass or other suspicious sonographic findings. Impression: No sonographic abnormality. Imaging findings were reviewed inperson with the patient at the time of the examination, via Spanishtranslator. Patient reported greatest concern at this time is itching inthis region. Clinical management of persistent symptoms recommended. BIRADS 1-Negative; N. 5 year breast cancer risk assessment 0.2 % Lifetime breast cancer risk assessment 5.2 % Breast cancer risk category Low (<15%) Niko Hylton MD IMG BI PROCEDURES Final Result * Pap smear (11/14/2017) 11/14/2017 Narrative HISTORICAL TESTING LAB RESULTING AGENCY - 11/26/2017 12:51 PM EDT [id number] THINPREP PAP, IMAGED: NEGATIVE FOR SQUAMOUS INTRAEPITHELIAL LESION AND MALIGNANCY ??. ATROPHY. RESULT OF APTIMA HIGH RISK HPV ASSAY: ?? POSITIVE ? (SEROTYPES 16,18,31,33,35,39,45,51,52,56,58,59,66,68) RESULTS OF APTIMA HPV 16 AND HPV 18/45 GENOTYPE ASSAY: ?HPV TYPE 16: ?? NEGATIVE ?HPV TYPES 18/45: ?? NEGATIVE YONATHNA TRAN, CELIA(ASCP) (CASE ELECTRONICALLY SIGNED 11 26 2017) ADEQUACY: SATISFACTORY. ENDOCERVICAL/TRANSFORMATION ZONE COMPONENT PRESENT. SOURCE: THINPREP PAP HPV ANY DX: ??REFLEX 16 AND 18, CERVICAL, IMAGED: CLINICAL INFORMATION: HPV ANY DIAGNOSIS. Z12.4, Z01.419, MENOPAUSE, PAP HX: POSITIVE III3B us Gustavo Fernando MD LAB CYTOLOGY ORDERABLES Final Result HISTORICAL TESTING LAB RESULTING AGENCY from Last 3 Months or Most Recently Relevant to Health Maintenance Care Teams Field Placement Director Relationship Specialty Start Date End Date Diomedes Hammer NP PCP - General 03/18/23
[2024-03-29 16:05] VITALS: BP 122/84; PULSE 84; O2SAT 95; BMI 22.5
== END 2024-03-29 16:55 | disposition home or self-care (01) ==
DX: Z00.00 Encounter for general adult medical examination without abnormal findings (principal); K21.9 Gastro-esophageal reflux disease without esophagitis; M25.511 Pain in right shoulder; C55 Malignant neoplasm of uterus, part unspecified; G43.909 Migraine, unspecified, not intractable, without status migrainosus; F32.A Depression, unspecified; F41.9 Anxiety disorder, unspecified; Z13.220 Encounter for screening for lipoid disorders; R07.81 Pleurodynia; M79.7 Fibromyalgia; R13.10 Dysphagia, unspecified

== ENCOUNTER → 2024-03-29 16:00 | Outpatient (BNVA) | payer OTHER, SELFPAY | DX: Z00.00 Encounter for general adult medical examination without abnormal findings (principal); K21.9 Gastro-esophageal reflux disease without esophagitis; M25.511 Pain in right shoulder; G43.909 Migraine, unspecified, not intractable, without status migrainosus; F32.A Depression, unspecified; F41.9 Anxiety disorder, unspecified; C55 Malignant neoplasm of uterus, part unspecified; R07.81 Pleurodynia; M79.7 Fibromyalgia; R13.10 Dysphagia, unspecified | CPT/HCPCS: 96127; 99212; 99396 ==

== ENCOUNTER 2024-04-14 15:07 | Outpatient (REF) | payer OTHER, SELFPAY ==
--- NOTE | ~2024-04-14 | XR_ITS ---
EXAMINATION: XR RIBS, BILATERAL CLINICAL INFORMATION: R07.81 - Pleurodynia COMPARISON: None available. TECHNIQUE: 3 views of the bilateral ribs were obtained. FINDINGS: Lungs are clear. No consolidation, pneumothorax, or pleural effusion. The cardiomediastinal silhouette and pulmonary vasculature are normal. Osseous structures are unremarkable. Ribs are intact. No fractures are identified. There is a mild right convex thoracolumbar scoliosis. XR/XR ribs BI min 4V w CXR1V IMPRESSION: Unremarkable examination. Electronically signed by: Jamarcus Dorantes MD 04/19/2024 09:06 AM EDT
--- OUTSIDE RECORDS SUMMARY | 2024-04-14 18:19 | XMS_ITS | Clinical Summary ---
Author Organization [facility] Address [address] [place] [address] Care Team Providers Care Local Sales Manager Name Role Phone Diomedes Hammer MANAGER MAC Primary Care Provider [phone] Source Comments PLEASE NOTE, if this patient is a minor, it may be UNLAWFUL to discuss sensitive information that is contained in these records (such as FAMILY PLANNING, MENTAL HEALTH or SUBSTANCE ABUSE) with the minor patient's parent or other person without the patient's specific authorization.[facility] Allergies Active Allergy Reactions Criticality Noted Date Comments Fentanyl Other (See Comments) 03/23/2019 As per patient dizziness. Medications DULoxetine (CYMBALTA) [address] capsule EFSTUSE CRAIG C?PSULA TODOS LOS D? EN LA MA?DEACON 0 Active traZODone (DESYREL) 50 mg tablet TAKE 1 TABLET BY MOUTH EVERY DAY AT BEDTIME FOR SLEEP 0 Active acetaminophen (TYLENOL) 500 mg tabletIndications: Myalgia Take 1 Tab by mouth every 6 (six) hours as needed for pain 60 Tab 2 0 Active buPROPion HCL (WELLBUTRIN XL) 300 mg 24 hr tablet TAKE 1 TABLET BY MOUTH EVERY DAY IN THE MORNING 1 Active caneIndications:My algia Dispense 1 cane x99 years 1 Each 1 Active LORazepam (ATIVAN) 0.5 mg tablet TAKE 1 TABLET BY MOUTH EVERYDAY AT BEDTIME 1 Active diaper,brief,adult ,disposable (WINGS CHOICE PLUS ADULT BRIEFS)Indications :Diarrhea, unspecified type UAD, adult pull ups size small 240 Each 11 2 Active butalbital-acetami nophen-caff 50-325-40 mg per capsuleIndications :Chronic nonintractable headache, unspecified headache type Take 1 Capsule by mouth every 4 (four) hours as needed for headaches 30 Capsule 2 3 Active diphenhydrAMINE (BENADRYL) 50 mg capsuleIndications :Itchy eyes Take 1 Capsule by mouth nightly at bedtime as needed for itching, rhinitis or allergies 30 Capsule 2 3 Active traMADoL (ULTRAM) 50 mg tabletIndications: Frequent falls Take 1 Tablet by mouth 3 (three) times daily as needed for pain 15 Tablet 1 3 Active hydrOXYzine HCL (ATARAX) 25 mg tabletIndications: Itch Take 1 Tablet by mouth 3 (three) times daily as needed for itching 30 Tablet 1 3 Active omeprazole (PRILOSEC) [address] capsule Take 1 Capsule by mouth every morning before breakfast 30 Capsule 3 3 Active sucralfate (CARAFATE) 100 mg/mL suspensionIndicati ons:Dyspepsia Take 10 mL by mouth 4 (four) times daily 1000 mL 3 3 Active hydrocortisone 2.5 % cream Apply topically 2 (two) times daily 453 g 1 3 Active lidocaine (LIDODERM) 5 % patch Place 1 Patch onto the skin once daily (every 24 hours) 30 Patch 2 3 Active diphenoxylate-atro pine (LOMOTIL) 2.5-0.025 mg per tabletIndications: Diarrhea, unspecified type Take 1 Tablet by mouth 4 (four) times daily as needed for diarrhea 30 Tablet 2 3 Active droNABinol (MARINOL) 5 mg capsuleIndications :Cachexia (HCC-CMS) Take 1 Capsule by mouth 2 (two) times daily before a meal 60 Capsule 1 3 Active megestroL (MEGACE ES) 625 mg/5 mL (125 mg/mL) suspensionIndicati ons:Loss of appetite,Alteratio n in appetite Take 5 mL by mouth once daily 150 mL 3 3 Active multivitamin tabletIndications: Alteration in appetite Take 1 Tablet by mouth once daily 30 Tablet 3 3 Active baclofen (LIORESAL) 10 mg tabletIndications: Neck pain on right side Take 1 Tablet by mouth 3 (three) times daily 30 Tablet 2 4 Active diclofenac sodium (VOLTAREN) 1 % gelIndications:Nec k pain on right side Apply topically 2 (two) times daily 100 g 3 4 Active lidocaine (LMX) 4 % creamIndications:N bismark pain on right side Apply topically as needed for pain 15 g 2 4 Active SUMAtriptan succinate (IMITREX) 50 mg tabletIndications: Other migraine without status migrainosus, intractable Take 1 Tablet by mouth 1 (one) time as needed for migraine for up to 1 dose 30 Tablet 1 4 Active topiramate (TOPAMAX) 50 mg tablet Take 1 Tablet by mouth 2 (two) times daily 60 Tablet 3 4 Active budesonide-formote roL (SYMBICORT) 80-4.5 mcg/actuation inhalerIndications :SOBOE (shortness of breath on exertion) Inhale 1 Puff into the lungs 4 (four) times daily as needed (shortness of breath) 10.2 g 1 4 Active gabapentin (NEURONTIN) 600 mg tabletIndications: Tingling of both feet Take 1 Tablet by mouth 3 (three) times daily 270 Tablet 1 4 Active loratadine (CLARITIN) 10 mg tabletIndications: Itchy eyes Take 1 Tablet by mouth once daily as needed for allergies 30 Tablet 2 4 Active Active Problems Problem Noted Date Diagnosed Date Anxiety 08/21/2021 Overview (11/11/2023): November 2023: Goes to [facility] Dyspnea on exertion 05/10/2021 Hx of falling 05/10/2021 Functional diarrhea 05/10/2021 Severe episode of recurrent major depressive disorder, without psychotic features ([facility]) 03/23/2019 Hx of cervical cancer 03/23/2019 Overview (11/18/2019): Stage IIIb, treated with radiology and chemotherapy 2015, follows [facility] Primary insomnia 03/23/2019 Myalgia 03/23/2019 Resolved Problems Problem Noted Date Diagnosed Date Resolved Date Tobacco dependence 05/02/2015 0 Overview (05/02/2015): 05/02/2015- quit once before using zyban, then started again d/t stress, wants to quit again and will use pills again Immunizations Name Administration Dates Next Due Hep B, Adult/Adol (ENERGIX/RECOMBIVAX) 6 INFLUENZA, SEASONAL, INJECTABLE 05/02/2015 PFIZER COVID VACCINE, PURPLE CAP, 12+ 09/17/2020 ,08/26/2020 TDAP 05/02/2015 Family History Medical History Relation Name Comments No Known Problems Father Thyroid Disease Mother Cancer Other Sister of her g randmother, breast Diabetes Paternal Aunt No Known Problems Sister Headache Neg Relation Name Status Comments Father Alive Mother Alive Other Paternal Aunt Sister Alive Social History Tobacco Use Types Packs/Day Years Used Date Smoking Tobacco: Never Smokeless Tobacco: Never Tobacco Cessation:Counseling Given: Not Answered Alcohol Use Standard Drinks/Week Comments Never 0 (1 standard drink = 0.6 oz pur e alcohol) Social Connections Answer Date Recorded Connectedness 0 05/24/2021 Financial Resource Strain Answer Date R ecorded Financial Resource Strain 0 2021 Stress Answer Date Recorded Stress 0 05/24/2021 Physical Activity Answer Date Recorded Physical Activity 0 10/04/2018 Food Insecurity Answer Date Recorded Food 0 05/24/2021 Transportation Needs Answer Date Record ed Transportation 0 05/24/2021 Housing Stability Answer Date Recorded Housing 0 05/24/2021 Safety and Environment Answer Date Jan rded Safety 1 11/11/2023 Utilities Answer Date Recorded Utilities 0 05/24/2021 Employment Answer Date Recorded Stress 0 04/30/2021 Comments No Sex and Gender Information Value Date Recorded Sex Assigned at Female 03/23/2019 9:46 AM PST Legal Sex Female 5:47 PM PDT Gender Identity Female 03/23/2019 9:46 AM PST Sexual Orientation Straight 03/23/2019 9 :46 AM PST Occupation Industry Job Start Date Job End Date disabled Not on file Not on file Not on file Last Filed Vital Signs Vital Sign Reading Time Taken Comments Blood Pressure 100/78 11/11/2023 4:00 PM EDT Pulse 80 11/11/2023 4:00 PM EDT Temperature 37 ??C (98.6 ??F) 11/11/2023 4:00 PM EDT Respiratory Rate 16 11/11/2023 4:00 PM EDT Oxygen Saturation 97% 03/15/2023 10:19 AM EST Inhaled Oxygen Concentration - - Weight 59 kg (130 lb) 11/11/2023 4:00 PM EDT Height 152.4 cm (5') 11/11/2023 4:00 PM EDT Body Mass Index 25.39 11/11/2023 4:00 PM EDT Plan of Treatment Health Maintenance Due Date Last Done Comments HPV Screening 1980 Pap + HPV 1980 Imm-Hepatitis B (2 of 3 - 19 + 3-dose series) 05/30/2015 05/02/2015 Cervical Cancer Screening 01/28/2020 Pap Smear 01/28/2020 01/27/2017 (Leeann farrar by Outside Provider), 11/01/2013 [id number] ( season) 2023 021, 08/26/2020 Imm-Influenza (#1) 2023 05/02/2015, 1 , 02/20/2008, Additional history exists Alcohol and Drug Screen 02/11/2024 11/11/19, 05/10/2021, 01/09/2021, Additional history exists Depression Monitoring 02/11/2024 11/11/2023 , 05/10/2021, 01/09/2021, Additional history exists Diabetes Screening 08/21/2024 08/21/2021, 0 08/21/2021, 11/18/2019, Additional history exists Annual Preventive Care Visit 11/10/202402/2023, 10/01/2022, 05/10/2021, Additional history exists Hypertension Screening (#1) 11/10/2024 Relationship Safety Screening/Counseling 11/10/2024 11/11/2023, 05/24/2021, 05/03/2020 Tobacco Screening 11/10/2024 11/11/2023 Breast Cancer Screening (Mammogram) 01/28/2025 01/29/2024, 06/09/2021 Imm-DTaP/Tdap/Td (2 - Td or Tdap) 05/01/2025 016, 12/18/2006 Lipid Screening 08/21/2026 08/21/2021, 09/2019, 05/02/2015 HIV Screening Completed 05/02/2015 Hepatitis C Screening Completed 11/18/2019 Cervical Ablation/Cold-Knife Conization Discontinued Cervical Cryotherapy Discontinued Colposcopy Discontinued Endometrial Biopsy Discontinued Excision/Leep Discontinued HPV Genotyping Discontinued Vaginal Pap Discontinued Vulvoscopy Discontinued Procedures Procedure Name Priority Date/Time Associated Diagnosis Comments REFERRAL FOR MAMMOGRAM Routine 4 3:00 AM EST Examination, medical, general HISTORIC COLONOSCOPY 01/20/2024 3:00 AM EST COMPREHENSIVE METABOLIC PANEL Routine 08/21/2021 12:00 PM EDT Alteration in appetite LIPID PANEL Routine 08/21/2021 12:00 PM EDT Alteration in appetite HEPATITIS A,B,C PANEL Routine 11/18/2019 2:10 PM EDT Diarrhea, unspecified type Dyspepsia HIV 1/2 AG/AB Routine 05/02/2015 4:34 PM EDT Routine general medical examination at a health care facility from Last 3 Months or Most Recently Relevant to Health Maintenance Results * REFERRAL FOR MAMMOGRAM (01/29/2024 3:00 AM EST) 01/29/2024 3:00 AM EST Diomedes Hammer [facility] IMG RFL MAMMO Final Res ult * HISTORIC COLONOSCOPY (01/20/2024 3:00 AM EST) 01/20/2024 3:00 AM EST Diomedes Hammer [facility] PROCEDURES Final Res ult * (ABNORMAL) LIPID PANEL (08/21/2021 12:00 PM EDT) CHOLESTEROL, TOTAL 204(H) <200 mg/dL [facility] HDL CHOLESTEROL 71 > OR = 50 mg/dL [facility] TRIGLYCERIDES 65 <150 mg/dL [facility] LDL-CHOLESTEROL 117(H) 99 mg/dL (calc) [facility] Comment: Reference range: <100 Desirable range <100 mg/dL for primary prevention; ?? <70 mg/dL for patients with CHD or diabetic patients with > or = 2 CHD risk factors. LDL-C is now calculated using the Jose calculation, which is a validated novel method providing better accuracy than the Friedewald equation in the estimation of LDL-C. Drake PERRY et al. SAYDA. 2013;310(19): 6606-1788 (http://education.UCAN/faq/LUC960) CHOL/HDLC RATIO 2.9 <5.0 (calc) [facility] NON-HDL CHOLESTEROL 133(H) <130 mg/dL (calc) [facility] Comment: For patients with diabetes plus 1 major ASCVD risk factor, treating to a non-HDL-C goal of <100 mg/dL (LDL-C of <70 mg/dL) is considered a therapeutic option. Blood Blood / Unknown 08/21/2021 1 2:00 PM EDT 08/21/2021 12:00 PM EDT Diomedes Hammer MANAGER MAC LAB - BLOOD DRAW Final Re sult [facility] [address] [address], [facility] [address] [address] * (ABNORMAL) COMPREHENSIVE METABOLIC PANEL (08/21/2021 12:00 PM EDT) GLUCOSE 84 65 - 99 mg/dL [facility] Comment: ?Fasting reference interval UREA NITROGEN (BUN) 18 7 - 25 mg/dL [facility] CREATININE (blood) 0.83 0.50 - 0.99 mg/dL [facility] EGFR 91 > OR = 60 mL/min/1 .73m2 [facility] Comment: The eGFR is based on the CKD-EPI 2021 equation. To calculate the new eGFR from a previous Creatinine or Cystatin C result, go to https://www.kidney.org/professionals/ kdoqi/gfr%5Fcalculator BUN/CREATININE RATIO NOT APPLICABLE 6 - 22 [facility] SODIUM 139 135 - 146 mmol/L [facility] POTASSIUM 4.2 3.5 - 5.3 mmol/L [facility] CHLORIDE 102 98 - 110 mmol/L [facility] CARBON DIOXIDE 30 20 - 32 mmol/L [facility] CALCIUM 10.1 8.6 - 10.2 mg/dL [facility] PROTEIN, TOTAL 7.6 6.1 - 8.1 g/dL [facility] ALBUMIN 4.7 3.6 - 5.1 g/dL [facility] GLOBULIN 2.9 1.9 - 3.7 g/dL (calc) [facility] ALBUMIN/GLOBUL IN RATIO 1.6 1.0 - 2.5 (calc) [facility] BILIRUBIN, TOTAL 0.5 0.2 - 1.2 mg/dL [facility] ALKALINE PHOSPHATASE 85 31 - 125 U/L [facility] AST 30 10 - 30 U/L [employer] [employer] [facility] ALT 34(H) 6 - 29 U/L [facility] Blood Blood / Unknown 08/21/2021 1 2:00 PM EDT 08/21/2021 12:00 PM EDT Diomedes Hammer [facility] LAB - BLOOD DRAW Edited R esult - Final [facility] [address] [address], [employer] [facility] [address] [address] * HEPATITIS A,B,C PANEL (11/18/2019 2:10 PM EDT) HEPATITIS B SURFACE ANTIBODY NEGATIVE NEGATIVE [facility] HEPATITIS B SURFACE ANTIGEN NEGATIVE NEGATIVE [facility] Comment: Over the counter supplements containing high doses of biotin may interfere with this assay. ??If interference is suspected, patients shoud be retested after refraining from biotin supplements for 72 hours. HEPATITIS C VIRUS DIAGNOSTIC NEGATIVE NEGATIVE [facility] HEPATITIS A ANTIBODY TOTAL NEGATIVE NEGATIVE [facility] Comment: Over the counter supplements containing high doses of biotin may interfere with this assay. ??If interference is suspected, patients shoud be retested after refraining from biotin supplements for 72 hours. HEPATITIS B CORE ANTIBODY NEGATIVE NEGATIVE [facility] Blood Blood / Unknown 11/18/2019 2 :10 PM EDT 11/18/2019 6:13 PM EDT Narrative [facility] - 11/18/2019 7:57 PM EDT [employer], a member of [address] Production Manager - Chante Vance MD [place] ID [id number] ORD# [id number] Diomedes Hammer MANAGER MAC LAB - BLOOD DRAW Edited R esult - Final [address] [address], [place] [phone] * HIV 1/2 AG/AB (05/02/2015 4:34 PM EDT) HIV 1/2 AB/AG NEG NEG [facility] Blood specimen (specimen) Blood / Unknown 05/02/2015 4:34 PM EDT Brennan Blackmon MD LAB - BLOOD DRAW Final Result [address] [address], [place] [phone] from Last 3 Months or Most Recently Relevant to Health Maintenance Insurance [place] Member Subscriber Plan / Payer (Ef fective 2022-Present) Name:Monika Field Relation to Subscriber:Self Name:Monika Field Payer ID:[id number] Group ID:Not on file Type:Medicaid Address: [place] [id number] [employer] Member Subscriber Plan / Payer (Ef fective 2023-Present) Name:Monika Field Relation to Subscriber:Self Name:Monika Field Payer ID:[id number] Group ID:Not on file Type:Managed Medicaid Address: [address] [employer] Care Teams Local Sales Manager Relationship Specialty Start Date End Date Diomedes Hammer FNP [address] [place] [address] PCP - General Family Medicine, INTERNAL REVENUE SERVICE AGENT 05/02/20
--- OUTSIDE RECORDS SUMMARY | 2024-04-14 18:19 | XMS_ITS | Clinical Summary ---
Author Organization [facility] Address [address] [place] [address] Care Team Providers Care Line Service Technician Name Role Phone Harman Diomedes BETSY Primary Care Provider [phone]- [phone] Surgical History Surgery Date Site/Laterality Comments COLPOSCOPY PROCEDURE: [place] COLPOSCOPY ENTIRE VAGINA W/CERVIX IF PRESENT Medical History Medical History Date Comments Neuropathy 09/03/2017 DX:Neuropathy; C OMMENT: EMG pending through [facility] pain management; ? If related to fibro [...] Trigger finger of left hand 02/17/2018 DX:T edger runner finger of left hand; COMMENT: 07/29/17 referral [...] at the time of the examination, via pulp roller. Patient reported greatest concern at this time [...] RESULTING AGENCY - 11/26/2017 12:51 PM EDT [id number] THINPREP PAP, IMAGED: NEGATIVE FOR SQUAMOUS INTRAEPITHELIAL LESION AND MALIGNANCY ??. ATROPHY. RESULT OF APTIMA HIGH RISK HPV ASSAY: ?? POSITIVE ? (SEROTYPES 16,18,31,33,35,39,45,51,52,56,58,59,66,68) RESULTS OF APTIMA HPV 16 AND HPV 18/45 GENOTYPE ASSAY: ?HPV TYPE 16: ?? NEGATIVE ?HPV TYPES 18/45: ?? NEGATIVE YONATHAN TRAN, CELIA(ASCP) (CASE ELECTRONICALLY SIGNED 11 26 [...] Recently Relevant to Health Maintenance Care Teams Line Service Technician Relationship Specialty Start Date End Date Diomedes Hammer NP PCP - General 03/18/23
== END 2024-04-14 15:08 | disposition home or self-care (01) ==
LOC: HO.XRAY 15:07
DX: R07.81 Pleurodynia (principal)
CPT/HCPCS: 71111

== ENCOUNTER → 2024-04-14 15:12 | Outpatient (BNV) | payer OTHER, SELFPAY | PROVIDERS: Visit Provider Radiology Diagnostic Radiology | DX: R07.81 Pleurodynia (principal) | CPT/HCPCS: 71111 ==

== ENCOUNTER 2024-04-15 10:22 | Outpatient (REF) | payer OTHER, SELFPAY ==
[2024-04-15 10:45] LABS: MANUAL DIFF FLAG NO
[2024-04-15 11:19] LABS: Basophils Percent Auto 0.6 % (0-2); Eosinophils Absolute Auto 0.1 X10*3/uL (0.0-0.4); Eosinophils Percent Auto 3.2 % (0-4); Hematocrit 34.6 % (37.0-47.0); Hemoglobin 11.9 g/dl (12.0-16.0); Lymphocytes Absolute Auto 1.8 X10*3/uL (1.2-4.9); Lymphocytes Percent Auto 52.8 % (20-40); Mean Corpuscular HGB Conc 34.4 g/dl (31.0-35.0); Mean Corpuscular Volume 87.2 fL (80.0-98.0); Mean Platelet Volume 8.8 fL (9.4-12.3); Monocytes Absolute Auto 0.3 X10*3/uL (0.1-1.2); Neutrophils Absolute Auto 1.2 x10*3/uL (2.0-8.3); Neutrophils Percent Auto 34.4 % (45-73); Platelet Count 229 X10*3/uL (160-400); Red Blood Count 3.97 X10*6/uL (4.20-5.50); White Blood Count 3.5 X10*3/uL (4.8-10.8)
[2024-04-15 12:07] LABS: Alanine Aminotransferase 23 U/L (0-31); Albumin Level 4.3 g/dL (3.5-5.0); Alkaline Phosphatase 83 U/L (39-117); Anion Gap 11 (12-20); Aspartate Amino Transferase 24 U/L (5-31); Bilirubin Total 0.5 mg/dL (0.0-1.0); Blood Urea Nitrogen 16 mg/dL (9-16); Calcium 9.4 mg/dL (8.4-10.2); Carbon Dioxide 26 mmol/L (22-29); Chloride 107 mmol/L (96-108); Cholesterol 200 mg/dL (<200); Estimated Glomerular Filt Rate > 60; Glucose Random 90 mg/dL (60-115); HDL Cholesterol 61 mg/dL (>40); LDL Cholesterol Calculated 129 mg/dL (<100); Potassium 3.4 mmol/L (3.3-5.1); Sodium 141 mmol/L (135-145); Total Protein 7.6 g/dL (6.5-8.0); Triglycerides 53 mg/dL (<150)
[2024-04-15 12:09] LABS: Free T4 (Free Thyroxine) 0.92 ng/dL (0.71-1.85); TSH reflex Free T4 0.86 uIU/mL (0.32-4.0); Vitamin D 25-OH Total 17.2 ng/mL (>30)
[2024-04-15 12:19] LABS: Folate 10.3 ng/mL (> or = 4.0); Vitamin B12 406 pg/mL (200-900)
--- OUTSIDE RECORDS SUMMARY | 2024-04-15 12:19 | XMS_ITS | Clinical Summary ---
Author Organization [facility] Address [address] [place] [address] Care Team Providers Care Sand Plant Attendant Name Role Phone Harman Diomedes BETSY Primary Care Provider [phone]- [phone] Surgical History Surgery Date Site/Laterality Comments COLPOSCOPY PROCEDURE: [place] COLPOSCOPY ENTIRE VAGINA W/CERVIX IF PRESENT Medical History Medical History Date Comments Neuropathy 09/03/2017 DX:Neuropathy; C OMMENT: EMG pending through [facility] pain management; ? 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 Patient reported greatest concern at this time [...] RESULTING AGENCY - 11/26/2017 12:51 PM EDT [id number] THINPREP PAP, IMAGED: NEGATIVE FOR SQUAMOUS INTRAEPITHELIAL [...] Recently Relevant to Health Maintenance Care Teams Sand Plant Attendant Relationship Specialty Start Date End Date Diomedes Hammer NP PCP - General 03/18/23
--- OUTSIDE RECORDS SUMMARY | 2024-04-15 12:19 | XMS_ITS | Clinical Summary ---
Author Organization [facility] Address [address] [place] [address] Care Team Providers Care Classification Analyst Name Role Phone Diomedes Hammer CHIEF I DISPATCHER Primary Care Provider [phone] Source Comments PLEASE NOTE, if this patient [...] Medications DULoxetine (CYMBALTA) [address] capsule FESTUSE CRAIG C?PSULA TODOS LOS D? EN LA [...] recurrent major depressive disorder, without psychotic features ([facility]) 03/23/2019 Hx of cervical cancer 03/23/2019 Overview (11/18/2019): Stage IIIb, treated with radiology and chemotherapy 2015, follows ELECTRIC RAZOR ASSEMBLER/ONC Primary insomnia 03/23/2019 Myalgia 03/23/2019 Resolved Problems [...] 01/27/2017 (Leeann farrar by Outside Provider), 11/01/2013 [id number] ( season) 2023 021, 08/26/2020 Imm-Influenza (#1) [...] EST) 01/29/2024 3:00 AM EST Diomedes Hammer [facility] IMG RFL MAMMO Final Res ult * HISTORIC COLONOSCOPY (01/20/2024 3:00 AM EST) 01/20/2024 3:00 AM EST Diomedes Hammer [facility] PROCEDURES Final Res ult * (ABNORMAL) LIPID PANEL (08/21/2021 12:00 PM EDT) CHOLESTEROL, TOTAL 204(H) <200 mg/dL [facility] HDL CHOLESTEROL 71 > OR = 50 mg/dL [facility] TRIGLYCERIDES 65 <150 mg/dL [facility] LDL-CHOLESTEROL 117(H) 99 mg/dL (calc) [facility] Comment: Reference range: <100 Desirable range <100 mg/dL for primary prevention; ?? <70 mg/dL for patients with CHD or diabetic patients with > or = 2 CHD risk factors. LDL-C is now calculated using the Jose calculation, which is a validated novel method providing better accuracy than the Friedewald equation in the estimation of LDL-C. Drake PERRY et al. SAYDA. 2013;310(19): 9928-2593 (http://education.The Spirit Project/faq/IXS927) CHOL/HDLC RATIO 2.9 <5.0 (calc) [facility] NON-HDL CHOLESTEROL 133(H) <130 mg/dL (calc) [facility] Comment: For patients with diabetes plus 1 major ASCVD risk factor, treating to a non-HDL-C goal of <100 mg/dL (LDL-C of <70 mg/dL) is considered a therapeutic option. Blood Blood / Unknown 08/21/2021 1 2:00 PM EDT 08/21/2021 12:00 PM EDT Diomedes Hammer CHIEF I DISPATCHER LAB - BLOOD DRAW Final Re sult [facility] [address] [address], [facility] [address] [address] * (ABNORMAL) COMPREHENSIVE METABOLIC PANEL (08/21/2021 12:00 PM EDT) GLUCOSE 84 65 - 99 mg/dL [facility] Comment: ?Fasting reference interval UREA NITROGEN (BUN) 18 7 - 25 mg/dL [facility] CREATININE (blood) 0.83 0.50 - 0.99 mg/dL [facility] EGFR 91 > OR = 60 mL/min/1 .73m2 [facility] Comment: The eGFR is based on the CKD-EPI 2021 equation. To calculate the new eGFR from a previous Creatinine or Cystatin C result, go to https://www.kidney.org/professionals/ kdoqi/gfr%5Fcalculator BUN/CREATININE RATIO NOT APPLICABLE 6 - 22 [employer] [facility] SODIUM 139 135 - 146 mmol/L [facility] POTASSIUM 4.2 3.5 - 5.3 mmol/L [facility] CHLORIDE 102 98 - 110 mmol/L [facility] CARBON DIOXIDE 30 20 - 32 mmol/L [employer] [facility] CALCIUM 10.1 8.6 - 10.2 mg/dL [facility] PROTEIN, TOTAL 7.6 6.1 - 8.1 g/dL [facility] ALBUMIN 4.7 3.6 - 5.1 g/dL [facility] GLOBULIN 2.9 1.9 - 3.7 g/dL (calc) [employer] [facility] ALBUMIN/GLOBUL IN RATIO 1.6 1.0 - 2.5 (calc) [facility] BILIRUBIN, TOTAL 0.5 0.2 - 1.2 mg/dL [employer] [facility] ALKALINE PHOSPHATASE 85 31 - 125 U/L [employer] [facility] AST 30 10 - 30 U/L [employer] [facility] ALT 34(H) 6 - 29 U/L [facility] Blood Blood / Unknown 08/21/2021 1 2:00 PM EDT 08/21/2021 12:00 PM EDT Diomedes Hammer [facility] LAB - BLOOD DRAW Edited R esult - Final [facility] [address] [address], [facility] [address] [address] * HEPATITIS A,B,C PANEL (11/18/2019 2:10 PM EDT) HEPATITIS B SURFACE ANTIBODY NEGATIVE NEGATIVE [facility] HEPATITIS B SURFACE ANTIGEN NEGATIVE NEGATIVE [facility] Comment: Over the counter supplements containing high doses of biotin may interfere with this assay. ??If interference is suspected, patients shoud be retested after refraining from biotin supplements for 72 hours. HEPATITIS C VIRUS DIAGNOSTIC NEGATIVE NEGATIVE [facility] HEPATITIS A ANTIBODY TOTAL NEGATIVE NEGATIVE [facility] Comment: Over the counter supplements containing high doses of biotin may interfere with this assay. ??If interference is suspected, patients shoud be retested after refraining from biotin supplements for 72 hours. HEPATITIS B CORE ANTIBODY NEGATIVE NEGATIVE [facility] Blood Blood / Unknown 11/18/2019 2 :10 PM EDT 11/18/2019 6:13 PM EDT Narrative [facility] - 11/18/2019 7:57 PM EDT [facility] [place], a member of [address] [address] Manager Of Application Development - Chante Vance MD [place] ID [id number] ORD# [id number] Diomedes Hammer CHIEF I DISPATCHER LAB - BLOOD DRAW Edited R esult - Final [address] [address], [place] [phone] * HIV 1/2 AG/AB (05/02/2015 4:34 PM EDT) HIV 1/2 AB/AG NEG NEG [facility] Blood specimen (specimen) Blood / Unknown 05/02/2015 4:34 PM EDT Brennan Blackmon MD LAB - BLOOD DRAW Final Result [address] [address], [place] [phone] from Last 3 Months or Most Recently Relevant to Health Maintenance Insurance [place] MEDICAID DENT[place] Member Subscriber Plan / Payer (Ef fective 2022-Present) Name:Monika Field Relation to Subscriber:Self Name:Monika Field Payer ID:[id number] Group ID:Not on file Type:Medicaid Address: [place] [id number] [employer] Member Subscriber Plan / Payer (Ef fective 2023-Present) Name:Monika Field Relation to Subscriber:Self Name:Monika Field Payer ID:[id number] Group ID:Not on file Type:Managed Medicaid Address: [address] [employer] Care Teams Classification Analyst Relationship Specialty Start Date End Date Diomedes Hammer FNP [address] [place] [address] PCP - General Family Medicine, CHILD CUSTODY EVALUATOR 05/02/20
== END 2024-04-15 10:23 | disposition home or self-care (01) ==
LOC: HO.LAB 10:22
DX: Z00.00 Encounter for general adult medical examination without abnormal findings (principal); G43.909 Migraine, unspecified, not intractable, without status migrainosus; Z13.220 Encounter for screening for lipoid disorders
CPT/HCPCS: 36415; 80053; 80061; 82306; 82607; 82746; 84439; 84443; 85025

== ENCOUNTER 2024-06-22 14:22 | Outpatient (REF) | payer OTHER, SELFPAY ==
--- NOTE | ~2024-06-22 | XR_ITS ---
EXAMINATION: XR SHOULDER 2 OR MORE VIEWS RIGHT HISTORY: M25.511 - Pain in right shoulder COMPARISON: There are no prior studies available for comparison. FINDINGS: Four views of the right shoulder are submitted. Osseous mineralization is normal. There is no fracture or dislocation. The glenohumeral and acromioclavicular joint spaces are preserved. The soft tissues are unremarkable. XR/XR shoulder RT min 2V IMPRESSION: Unremarkable examination of the right shoulder. Electronically signed by: Cale Magallon MD 06/23/2024 07:56 AM EDT
--- NOTE | ~2024-06-22 | XR_ITS ---
EXAMINATION: XR CERVICAL SPINE 2-3 VIEWS HISTORY: M54.2 - Cervicalgia COMPARISON: There are no prior studies for comparison. FINDINGS: AP, lateral, and open-mouth odontoid views of the cervical spine are submitted. Osseous mineralization is normal. Seven cervical vertebral bodies are identified maintaining normal height and alignment without evidence of fracture or subluxation. There is mild degenerative disc disease at C5-6 and C6-7 with disc space narrowing and osteophyte formation. The odontoid and lateral masses of C1 are intact. There is no prevertebral soft tissue swelling. XR/XR cervical spine 2V IMPRESSION: Mild degenerative disc disease of the lower cervical spine. Electronically signed by: Cale Magallon MD 06/23/2024 07:58 AM EDT
[2024-06-22 16:14] LABS: MANUAL DIFF FLAG NO
--- OUTSIDE RECORDS SUMMARY | 2024-06-22 16:17 | XMS_ITS | Clinical Summary ---
Author Organization [facility] Address [address] [place] [address] Care Team Providers Care Packer And Carry Out Name Role Phone HarmanDiomedes black [facility] Primary Care Prov ider Source Comments [...] recurrent major depressive disorder, without psychotic features ([facility]) 03/23/2019 Hx of cervical cancer 03/23/2019 Overview (11/18/2019): Stage IIIb, treated with radiology and chemotherapy 2015, follows CAREER CONSULTANT/ONC Primary insomnia 03/23/2019 Myalgia 03/23/2019 Resolved Problems [...] 01/27/2017 (Leeann farrar by Outside Provider), 11/01/2013 [id number] ( season) 2023 021, 08/26/2020 Imm-Influenza (#1) [...] EDT Routine general medical examination at a [facility] care facility from Last 3 Months or Most Recently Relevant to Health Maintenance Results * REFERRAL FOR MAMMOGRAM (01/29/2024 3:00 AM EST) 01/29/2024 3:00 AM EST Diomedes Hammer [facility] IMG RFL MAMMO Fi nal Result * (ABNORMAL) LIPID PANEL (08/21/2021 12:00 PM EDT) CHOLESTEROL, TOTAL 204(H) <200 mg/dL [facility] HDL CHOLESTEROL 71 > OR = 50 mg/dL [facility] TRIGLYCERIDES 65 <150 mg/dL [facility] LDL-CHOLESTEROL 117(H) 99 mg/dL (calc) [facility] Comment: Reference range: <100 Desirable range <100 mg/dL for primary prevention; ?? <70 mg/dL for patients with CHD or diabetic patients with > or = 2 CHD risk factors. LDL-C is now calculated using the Drake-Parker calculation, which is a validated novel method providing better accuracy than the Friedewald equation in the estimation of LDL-C. Drake PERRY et al. SAYDA. 2013;310(19): 4919-1955 (http://education.Blackfoot/faq/MMH492) CHOL/HDLC RATIO 2.9 <5.0 (calc) [facility] NON-HDL CHOLESTEROL 133(H) <130 mg/dL (calc) [facility] Comment: For patients with diabetes plus 1 major ASCVD risk factor, treating to a non-HDL-C goal of <100 mg/dL (LDL-C of <70 mg/dL) is considered a therapeutic option. Blood Blood / Unknown 08/21/2021 1 2:00 PM EDT 08/21/2021 12:00 PM EDT Diomedes Hammer SECURITY SYSTEMS ADMINISTRATOR LAB - BLOOD DRAW F inal Result [employer] [address] [address], [place] [address] [address] * (ABNORMAL) COMPREHENSIVE METABOLIC PANEL (08/21/2021 12:00 PM EDT) GLUCOSE 84 65 - 99 mg/dL [facility] Comment: ?Fasting reference interval UREA NITROGEN (BUN) 18 7 - 25 mg/dL [facility] CREATININE (blood) 0.83 0.50 - 0.99 mg/dL [facility] EGFR 91 > OR = 60 mL/min/1 .73m2 [facility] Comment: The eGFR is based on the CKD-EPI 2020 equation. To calculate the new eGFR from a previous Creatinine or Cystatin C result, go to https://www.kidney.org/professionals/ kdoqi/gfr%5Fcalculator BUN/CREATININE RATIO NOT APPLICABLE 6 - [facility] SODIUM 139 135 - 146 mmol/L [facility] POTASSIUM 4.2 3.5 - 5.3 mmol/L [facility] CHLORIDE 102 98 - 110 mmol/L [facility] CARBON DIOXIDE 30 20 - 32 mmol/L [facility] CALCIUM 10.1 8.6 - 10.2 mg/dL [facility] PROTEIN, TOTAL 7.6 6.1 - 8.1 g/dL [facility] [place] [facility] ALBUMIN 4.7 3.6 - 5.1 g/dL [facility] [place] [facility] GLOBULIN 2.9 1.9 - 3.7 g/dL (calc) [facility] ALBUMIN/GLOBUL IN RATIO 1.6 1.0 - 2.5 (calc) [facility] BILIRUBIN, TOTAL 0.5 0.2 - 1.2 mg/dL [facility] ALKALINE PHOSPHATASE 85 31 - 125 U/L [facility] AST 30 10 - 30 U/L [facility] ALT 34(H) 6 - 29 U/L [facility] Blood Blood / Unknown 08/21/2021 1 2:00 PM EDT 08/21/2021 12:00 PM EDT Diomedes Hammer [facility] LAB - BLOOD DRAW E dited Result - Final [facility] [address] [address], [facility] [address] [address] * HEPATITIS A,B,C PANEL (11/18/2019 2:10 PM EDT) HEPATITIS B SURFACE ANTIBODY NEGATIVE NEGATIVE [facility] HEPATITIS B SURFACE ANTIGEN NEGATIVE NEGATIVE [facility] Comment: Over the counter supplements containing high doses of biotin may interfere with this assay. ??If interference is suspected, patients shoud be retested after refraining from biotin supplements for 72 hours. HEPATITIS C VIRUS DIAGNOSTIC NEGATIVE NEGATIVE [facility] HEPATITIS A ANTIBODY TOTAL NEGATIVE NEGATIVE [facility] Comment: Over the counter supplements containing high doses of biotin may interfere with this assay. ??If interference is suspected, patients shoud be retested after refraining from biotin supplements for 72 hours. HEPATITIS B CORE ANTIBODY NEGATIVE NEGATIVE [facility] Blood Blood / Unknown 11/18/2019 2 :10 PM EDT 11/18/2019 6:13 PM EDT Narrative [facility] - 11/18/2019 7:57 PM EDT [employer], a member of [address] [address] Residential Advisor - Chante Vance MD PT ID [id number] ORD# [id number] Diomedes [facility] LAB - BLOOD DRAW E dited Result - Final [facility] [address] [place] [address], [place] [phone] * HIV 1/2 AG/AB (05/02/2015 4:34 PM EDT) HIV 1/2 AB/AG NEG NEG [facility] Blood specimen (specimen) Blood / Unknown 05/02/2015 4:34 PM EDT Brennan Blackmon MD LAB - BLOOD DRAW Final Result [facility] [address] [place] [address], [place] [phone] from Last 3 Months or Most Recently Relevant to Health Maintenance Insurance [place] [facility] Medicaid Address: [address] [place] [address] ACO Care Teams Packer And Carry Out Relationship Specialty Start Date End Date Diomedes Hammer FNP [address] [place] [address] PCP - General Family Medicine, SCIENCE INSTRUCTOR 05/02/20
--- OUTSIDE RECORDS SUMMARY | 2024-06-22 16:17 | XMS_ITS | Clinical Summary ---
Author Organization [facility] Address [address] [place] [address] Care Team Providers Care Aircraft Detail Draftsperson Name Role Phone Harman Diomedes BETSY Primary Care Provider [phone]- [phone] Surgical History Surgery Date Site/Laterality Comments COLPOSCOPY PROCEDURE: [place] COLPOSCOPY ENTIRE VAGINA W/CERVIX IF PRESENT Medical History Medical History Date Comments Neuropathy 09/03/2017 DX:Neuropathy; C OMMENT: EMG pending through [facility] pain management; ? 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 Patient reported greatest concern at this time [...] RESULTING AGENCY - 11/26/2017 12:51 PM EDT [id number] THINPREP PAP, IMAGED: NEGATIVE FOR SQUAMOUS INTRAEPITHELIAL [...] Recently Relevant to Health Maintenance Care Teams Aircraft Detail Draftsperson Relationship Specialty Start Date End Date Diomedes Hammer NP PCP - General 03/18/23
[2024-06-22 16:25] LABS: Basophils Percent Auto 0.4 % (0-2); Eosinophils Absolute Auto 0.1 X10*3/uL (0.0-0.4); Eosinophils Percent Auto 1.8 % (0-4); Hematocrit 36.8 % (37.0-47.0); Hemoglobin 12.2 g/dl (12.0-16.0); Imm Gran Abs Auto 0.01 X10*3/uL (0.00-0.03); Imm Gran Pct Auto 0.2 % (0.0-0.4); Lymphocytes Absolute Auto 2.6 X10*3/uL (1.2-4.9); Lymphocytes Percent Auto 57.6 % (20-40); Mean Corpuscular HGB Conc 33.2 g/dl (31.0-35.0); Mean Corpuscular Hemoglobin 29.3 pg (27.0-33.0); Mean Corpuscular Volume 88.5 fL (80.0-98.0); Mean Platelet Volume 8.8 fL (9.4-12.3); Monocytes Absolute Auto 0.3 X10*3/uL (0.1-1.2); Neutrophils Absolute Auto 1.5 x10*3/uL (2.0-8.3); Platelet Count 240 X10*3/uL (160-400); Red Blood Count 4.16 X10*6/uL (4.20-5.50); Red Cell Distribution Width 12.6 % (11.0-16.0); White Blood Count 4.5 X10*3/uL (4.8-10.8)
[2024-06-22 17:02] LABS: Rheumatoid Factor < 13.0 IU/mL (<15.0)
[2024-06-22 17:10] LABS: Erythrocyte Sedimentation Rate 13 MM/HR (0-20)
[2024-06-22 17:25] LABS: C Reactive Protein < 0.10 mg/dL (< or = 0.50)
[2024-06-22 17:32] LABS: Folate 8.4 ng/mL (> or = 4.0); Vitamin B12 365 pg/mL (200-900)
[2024-06-22 17:41] LABS: HCG Quantitative 11 mIU/mL; Vitamin D 25-OH Total 31.2 ng/mL (>30)
[2024-06-23 12:03] LABS: Anti Nuclear Antibody Screen NEGATIVE (NEGATIVE)
[2024-06-24 13:28] LABS: Cyclic Citrullinated Peptide <16 UNITS
[2024-06-24 20:48] LABS: Anti DNA DS Antibody 1 IU/mL
== END 2024-06-22 14:23 | disposition home or self-care (01) ==
LOC: HO.XRAY 14:22
PROVIDERS: Visit Provider Internal Medicine
DX: M54.2 Cervicalgia (principal); R79.89 Other specified abnormal findings of blood chemistry; G43.909 Migraine, unspecified, not intractable, without status migrainosus; C55 Malignant neoplasm of uterus, part unspecified; R13.10 Dysphagia, unspecified; M25.511 Pain in right shoulder; E53.8 Deficiency of other specified B group vitamins; E55.9 Vitamin D deficiency, unspecified
CPT/HCPCS: 36415; 72040; 73030; 81025; 82306; 82607; 82746; 84702; 85025; 85652; 86038; 86140; 86200; 86225; 86431; 99212

== ENCOUNTER 2024-06-22 14:22 | Outpatient (AMB) | payer OTHER, SELFPAY ==
--- NOTE | 2024-06-22 14:27 | A.OFFPC_ITS ---
Vital Signs 06/22/24 14:28 Height 5 ft 5 in Weight 132 lb BMI 22.0 BP 118/72 Blood Pressure Location Lt brachial Position Sitting Intake Visit Reasons: DANIEL From [facility] Torque Tester Required: No Accompanied by: Self / Same As Patient Allergies fentanyl patch Allergy (Mild, Uncoded 06/22/24 14:49) Dizziness Medication List - Last Reconciled 06/22/24 by Ellie Benites MD baclofen 10 mg PO BEDTIME PRN bupropion HCl XL 300 mg PO QAM butalbital-acetaminophen 50-325 mg 1 tab PO Q4H PRN cholecalciferol (vitamin D3) 25 mcg PO DAILY diaper,brief,adult,disposable ([employer] Adult Briefs) As directed diclofenac sodium 1% 2 grams topical BID diphenhydramine HCl 50 mg PO BEDTIME diphenoxylate-atropine 2.5-0.025 mg 1 tab PO QID PRN dronabinol 5 mg PO BID duloxetine 30 mg PO DAILY hydrocortisone 2.5% 1 appl topical BID PRN hydroxyzine HCl 25 mg PO TID PRN lidocaine 5% 1 patch topical DAILY lidocaine 4% 1 appl topical DAILY PRN loratadine 10 mg PO DAILY lorazepam 0.5 mg PO BEDTIME PRN megestrol 5 mL PO DAILY multivitamin 1 tab PO DAILY omeprazole 40 mg PO DAILY sucralfate 10 mL PO QID sumatriptan succinate 50 mg PO Q2-4H PRN topiramate 25 mg PO DAILY tramadol 50 mg PO TID PRN trazodone 50 mg PO BEDTIME PRN Tobacco use date assessed: 03/29/24 Dental Screening Dental Screen Date: 03/29/24 HPI HPI Comments History of Present Illness Details The patient is a 43-year-old female presenting with cervical pain, migraine, and nausea. After a recent fall, she continues to experience neck pain, necessitating intermittent use of neck support. Historically, she suffers from migraines treated with sumatriptan and Topamax, but the intensity and associated nausea have persisted. She reported difficulty swallowing earlier in the year, although further investigation was not completed. Her laboratory findings indicated low white blood cell counts, prompting oncological consultations due to her history of cervical cancer, for which she underwent chemotherapy and possibly radiation therapy. Oncological follow-up continues amidst concerns of past abnormal lab results. PFSH Medical History (Updated 06/22/24 @ 15:00 by Ellie Benites MD) Uterine cancer Surgical History History of tubal ligation Social History Housing: House Alcohol intake: never Patient Tobacco Use Status: Never used Tobacco e-Cigarette/Vaping Use: Never Used Second Hand Smoke Exposure: No service: No Current occupational status: disabled Cognitive needs: No Hearing needs: No Vision needs: No Questionnaire Thrive Questionnaire Date Thrive assessed: 03/29/24 I am a: Patient What is your living situation today?: I have a steady place to live Within the past 12 months, did the food you bought not last and you didn't have the money to get more?: Sometimes True Within the past 12 months, did you worry whether your food would run out before you got money to buy more?: Sometimes True Do you have trouble paying for medicines?: I choose not to answer this question Do you have trouble getting transportation to medical appointments?: I choose not to answer this question Do you have trouble paying your heating and electricity bill?: Yes Do you have trouble taking care of your child, family member or friend?: I choose not to answer this question Do you have trouble with day-to-day activities such as bathing, preparing meals, shopping, managing finances, etc.?: I choose not to answer this question Are you currently unemployed and looking for a job?: Yes Are you interested in more education?: I choose not to answer this question Please select the resources that you would like help with: None Currently or been in a relationship where the following occur: No concerns reported THRIVE Score: 3 HARVINDER-7 AMB Questionnaire HARVINDER-7 Date HARVINDER - 7 assessed: 03/29/24 Source: Developed by Drs. Cale Jaramillo, Vera Lopez, Enrico De Dios and colleagues, with an educational florence from [employer]. Review of Systems Const All systems reviewed & are unremarkable except as noted in HPI and below Card Denies chest pain at rest, Denies chest pain with activity, Denies edema, Denies irregular heart rhythm, Denies claudication, Denies dyspnea, Denies dyspnea on exertion, Denies orthopnea, Denies paroxysmal nocturnal dyspnea and Denies slow heart rate Resp Denies cough, Denies dyspnea and Denies dyspnea on exertion Physical exam (Primary Care) Vital Signs: Last Vital Signs BP 118/72 06/22/24 14:28 BMI result Body Mass Index 22.0 Tobacco/Smoking Status: Tobacco use Status Tobacco use date assessed 03/29/24 06/22/24 14:33 Patient Tobacco Use Status Never used Tobacco 06/22/24 14:33 e-Cigarette/Vaping Use Never Used 06/22/24 14:33 Thrive Assessment: Date of Thrive Assessment Date Thrive assessed 03/29/24 06/22/24 14:33 Currently or been in a relationship where the following occur: No concerns reported Resp Effort & Inspection: normal respiratory effort Auscultation: clear to auscultation bilaterally Cardio Jugular venous distension: no JVD Rate: regular rate Rhythm: regular rhythm Heart sounds: S1 normal heart sound present and S2 normal heart sound present Extrem General: Yes full ROM Results AMB Test Urine AMB Test Urine Negative Last Edit by CARRI Easley on 06/22/24 15:11 Results Reviewed Results Reviewed: Laboratory Last Values Tst Clinic Negative 06/22/24 15:09 Coding Level of Care Code Est Pt Level 4 (64546) Complex EM visit Add On G2211 Diagnoses Elevated serum hCG R79.89 Neck pain M54.2 Migraine G43.909 Uterine cancer C55 Dysphagia R13.10 Right shoulder pain M25.511 Time Spent (min) 22 Assessment & Plan Assessment & Plan (1) Elevated serum hCG: Code(s): R79.89 - Other specified abnormal findings of blood chemistry Category: Medical (2) Neck pain: Code(s): M54.2 - Cervicalgia Category: Medical (3) Migraine: Code(s): G43.909 - Migraine, unspecified, not intractable, without status migrainosus Category: Medical (4) Uterine cancer: Comment: Initial diagnosis and treatment in [place] in 2016 having weekly cisplatin in whole pelvic radiation followed by 6 cycles of carbo/Taxol CT scan of abdomen and pelvis done 12/18/2015 no evidence of metastatic disease in remission since 2016 Code(s): C55 - Malignant neoplasm of uterus, part unspecified Category: Medical (5) Dysphagia: Code(s): R13.10 - Dysphagia, unspecified Category: Medical (6) Right shoulder pain: Code(s): M25.511 - Pain in right shoulder Category: Medical Plan I requested updated imaging for her neck and shoulder due to cervical pain following a fall. We will maintain migraine treatment with sumatriptan and Topamax and monitor for side effects that may worsen her nausea. The reevaluation of her low white blood cell count involves repeat laboratory tests, with oncology's guidance considered substantial due to her cancer history. An urgent referral for physical therapy is planned to address musculoskeletal concerns, and issues with the swallow study require gastroenterology consultation. Medication review entails avoiding allergenic drugs like the fentanyl patch. Continued oncological surveillance is maintained to ensure early detection of any recurrent malignancy concerns. Patient was informed and verbally consented to the use of an ambient scribe for clinic note documentation during this visit. I discussed with the patient the importance of immediate imaging and the rescheduling of necessary studies to evaluate the extent of her cervical pain accurately. For her migraine and nausea, I reviewed the current treatment plan and explained the importance of medication adherence while ensuring no side effects are contributing to symptoms. Given the slightly low white blood cell count in recent tests, I detailed the need for consistent oncological follow-up and additional laboratory evaluation. For her past cervical cancer management, I reassured her that continuous oncology care is adequate. I obtained her consent for all planned procedures and emphasized the urgency of completing previously ordered diagnostics for her swallowing difficulties. Orders: Orders [place] barium swallow 04/14/24 R13.10 - Dysphagia, unspecified XR shoulder RT min 2V Today M25.511 - Pain in right shoulder Vitamin D 25-OH Total Today E55.9 - Vitamin D deficiency, unspecified Vitamin B12 and Folate Today E53.8 - Deficiency of other specified B group vitamins Complete Blood Count Auto Diff Today M54.2 - Cervicalgia ELLIE Reflex Titer and Pattern Today M54.2 - Cervicalgia Anti DNA DS Antibody Today M54.2 - Cervicalgia AMB HCG Urine Test Today N92.6 - Irregular menstruation, unspecified PT Evaluation and Treatment 03/29/24 M25.511 - Pain in right shoulder, M54.2 - Cervicalgia XR cervical spine 2V Today M54.2 - Cervicalgia HCG Quantitative Today R79.89 - Other specified abnormal findings of blood chemistry Erythrocyte Sedimentation Rate Today M54.2 - Cervicalgia C Reactive Protein Today M54.2 - Cervicalgia Cyclic Citrullinated Peptide Today M54.2 - Cervicalgia Rheumatoid Factor Today M54.2 - Cervicalgia Referrals Rheumatology Referral M79.7 - Fibromyalgia Patient Instructions: - Prioritize neck and shoulder imaging as soon as possible. - Continue taking sumatriptan and Topamax as prescribed. - Follow up with oncology regularly. - Plan for repeat blood work to assess white blood cell count. - Expect a call for physical therapy scheduling. - Avoid fentanyl and related allergenic substances. - Consult gastroenterology for swallowing issues. - Monitor migraine and report any new symptoms or side effects. - Contact promptly if experiencing any new or worsening symptoms.
[2024-06-22 14:28] VITALS: BP 118/72; BMI 22.0
--- OUTSIDE RECORDS SUMMARY | 2024-06-22 15:34 | XMS_ITS | Clinical Summary ---
Author Organization [facility] Address [address] [place] [address] Care Team Providers Care Inpatient Services Director Name Role Phone HarmanDiomedes black [facility] Primary Care Prov ider Source Comments PLEASE NOTE, if this patient [...] Medications DULoxetine (CYMBALTA) [address] capsule TOME CRAIG C?PSULA TODOS LOS D? EN LA [...] recurrent major depressive disorder, without psychotic features ([facility]) 03/23/2019 Hx of cervical cancer 03/23/2019 Overview (11/18/2019): Stage IIIb, treated with radiology and chemotherapy 2015, follows RELOCATION ASSOCIATE/ONC Primary insomnia 03/23/2019 Myalgia 03/23/2019 Resolved Problems Problem Noted Date Diagnosed Date Resolved Date Tobacco dependence 05/02/2015 0 Overview (05/02/2015): 05/02/2015- quit once before using zyban, then started again d/t stress, wants to quit again and will use pills again Immunizations Immunization Administration Dates Next Due Hep B, Adult/Adol [...] 9:46 AM PST Sexual Orientation Straight 03/23/2019 9: 46 AM PST Occupation Industry Job Start Date [...] Health Maintenance Due Date Last Done Comments Anxiety Screening 1980 HPV Screening 1980 Pap + HPV 1980 Imm-Hepatitis B (2 of 3 - 19 + 3-dose series) 05/30/2015 05/02/2015 Cervical Cancer Screening 01/28/2020 Pap Smear 01/28/2020 01/27/2017 (Leeann farrar by Outside Provider), 11/01/2013 [id number] ( season) 2023 021, 08/26/2020 Imm-Influenza (#1) [...] 05/01/2025 016, 12/18/2006 Lipid Screening 08/21/2026 08/21/2021, 10/0 09/2019, 05/02/2015 HIV Screening Completed 05/02/2015 Hepatitis C Screening Completed 11/18/2019 Cervical Ablation/Cold-Knife Conization Discontinued Cervical Cryotherapy Discontinued Colposcopy Discontinued Endometrial Biopsy Discontinued Excision/Leep Discontinued HPV Genotyping Discontinued Vaginal Pap Discontinued Vulvoscopy Discontinued Procedures Procedure Name Priority Date/Time Associated Diagnosis Comments REFERRAL FOR MAMMOGRAM Routine 3:00 AM EST Examination, medical, general COMPREHENSIVE METABOLIC PANEL Routine 08/21/2021 12:00 PM EDT Alteration in appetite LIPID PANEL Routine 08/21/2021 12:00 PM EDT Alteration in appetite HEPATITIS A,B,C PANEL Routine 11/18/2019 2:10 PM EDT Diarrhea, unspecified type Dyspepsia HIV 1/2 AG/AB Routine 05/02/2015 4:34 PM EDT Routine general medical examination at a [facility] care facility from Last 3 Months or Most Recently Relevant to Health Maintenance Results * REFERRAL FOR MAMMOGRAM (01/29/2024 3:00 AM EST) 01/29/2024 3:00 AM EST Diomedes Hammer [facility] IMG RFL MAMMO Fi nal Result * (ABNORMAL) LIPID PANEL (08/21/2021 12:00 PM EDT) CHOLESTEROL, TOTAL 204(H) <200 mg/dL [facility] HDL CHOLESTEROL 71 > OR = 50 mg/dL [facility] TRIGLYCERIDES 65 <150 mg/dL [facility] LDL-CHOLESTEROL 117(H) 99 mg/dL (calc) [facility] Comment: Reference range: <100 Desirable range <100 mg/dL for primary prevention; ?? <70 mg/dL for patients with CHD or diabetic patients with > or = 2 CHD risk factors. LDL-C is now calculated using the Drake-Parker calculation, which is a validated novel method providing better accuracy than the Friedewald equation in the estimation of LDL-C. Drake PERRY et al. SAYDA. 2013;310(19): 8436-8446 (http://education.GreenVolts/faq/ZHU579) CHOL/HDLC RATIO 2.9 <5.0 (calc) [facility] NON-HDL CHOLESTEROL 133(H) <130 mg/dL (calc) [facility] Comment: For patients with diabetes plus 1 major ASCVD risk factor, treating to a non-HDL-C goal of <100 mg/dL (LDL-C of <70 mg/dL) is considered a therapeutic option. Blood Blood / Unknown 08/21/2021 1 2:00 PM EDT 08/21/2021 12:00 PM EDT Diomedes Hammer FIELD CROP I FARMWORK[employer] LAB - BLOOD DRAW F inal Result [facility] [address] [address], [facility] [address] [address] * (ABNORMAL) COMPREHENSIVE METABOLIC PANEL (08/21/2021 12:00 PM EDT) GLUCOSE 84 65 - 99 mg/dL [facility] Comment: ?Fasting reference interval UREA NITROGEN (BUN) 18 7 - 25 mg/dL [facility] CREATININE (blood) 0.83 0.50 - 0.99 mg/dL [facility] EGFR 91 > OR = 60 mL/min/1 .73m2 [facility] Comment: The eGFR is based on the CKD-EPI 2020 equation. To calculate the new eGFR from a previous Creatinine or Cystatin C result, go to https://www.kidney.org/professionals/ kdoqi/gfr%5Fcalculator BUN/CREATININE RATIO NOT APPLICABLE 6 - [facility] SODIUM 139 135 - 146 mmol/L [facility] POTASSIUM 4.2 3.5 - 5.3 mmol/L [facility] CHLORIDE 102 98 - 110 mmol/L [facility] CARBON DIOXIDE 30 20 - 32 mmol/L [facility] CALCIUM 10.1 8.6 - 10.2 mg/dL [employer] [facility] PROTEIN, TOTAL 7.6 6.1 - 8.1 g/dL [facility] [facility] ALBUMIN 4.7 3.6 - 5.1 g/dL [facility] [place] [facility] GLOBULIN 2.9 1.9 - 3.7 g/dL (calc) [facility] ALBUMIN/GLOBUL IN RATIO 1.6 1.0 - 2.5 (calc) [facility] BILIRUBIN, TOTAL 0.5 0.2 - 1.2 mg/dL [facility] ALKALINE PHOSPHATASE 85 31 - 125 U/L [facility] AST 30 10 - 30 U/L [facility] ALT 34(H) 6 - 29 U/L [facility] Blood Blood / Unknown 08/21/2021 1 2:00 PM EDT 08/21/2021 12:00 PM EDT Diomedes Hammer [facility] LAB - BLOOD DRAW E dited Result - Final [facility] [address] [address], [facility] [address] [address] * HEPATITIS A,B,C PANEL (11/18/2019 2:10 PM EDT) HEPATITIS B SURFACE ANTIBODY NEGATIVE NEGATIVE [facility] HEPATITIS B SURFACE ANTIGEN NEGATIVE NEGATIVE [facility] Comment: Over the counter supplements containing high doses of biotin may interfere with this assay. ??If interference is suspected, patients shoud be retested after refraining from biotin supplements for 72 hours. HEPATITIS C VIRUS DIAGNOSTIC NEGATIVE NEGATIVE [facility] HEPATITIS A ANTIBODY TOTAL NEGATIVE NEGATIVE [facility] Comment: Over the counter supplements containing high doses of biotin may interfere with this assay. ??If interference is suspected, patients shoud be retested after refraining from biotin supplements for 72 hours. HEPATITIS B CORE ANTIBODY NEGATIVE NEGATIVE [facility] Blood Blood / Unknown 11/18/2019 2 :10 PM EDT 11/18/2019 6:13 PM EDT Narrative [facility] - 11/18/2019 7:57 PM EDT [employer], a member of [address] [address] [employer] - Chante Vance MD PT ID [id number] ORD# [id number] Diomedes [facility] LAB - BLOOD DRAW E dited Result - Final [facility] [address] [place] [address], [place] [phone] * HIV 1/2 AG/AB (05/02/2015 4:34 PM EDT) HIV 1/2 AB/AG NEG NEG [facility] Blood specimen (specimen) Blood / Unknown 05/02/2015 4:34 PM EDT Brennan Blackmon MD LAB - BLOOD DRAW Final Result [facility] [address] [place] [address], [place] [phone] from Last 3 Months or Most Recently Relevant to Health Maintenance Insurance [place] MED[place] [facility] [facility] [address] [employer] Care Teams Inpatient Services Director Relationship Specialty Start Date End Date Diomedes Hammer FNP [address] [place] [address] PCP - General Family Medicine, COUNTER TENDER 05/02/20
--- OUTSIDE RECORDS SUMMARY | 2024-06-22 15:34 | XMS_ITS | Clinical Summary ---
Author Organization [facility] Address [address] [place] [address] Care Team Providers Care Small Wind Energy Installer Name Role Phone Harman Diomedes BETSY Primary Care Provider [phone]- [phone] Surgical History Surgery Date Site/Laterality Comments COLPOSCOPY PROCEDURE: [place] COLPOSCOPY ENTIRE VAGINA W/CERVIX IF PRESENT Medical History Medical History Date Comments Neuropathy 09/03/2017 DX:Neuropathy; C OMMENT: EMG pending through [facility] pain management; ? 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 Patient reported greatest concern at this time [...] RESULTING AGENCY - 11/26/2017 12:51 PM EDT [id number] THINPREP PAP, IMAGED: NEGATIVE FOR SQUAMOUS INTRAEPITHELIAL [...] Recently Relevant to Health Maintenance Care Teams Small Wind Energy Installer Relationship Specialty Start Date End Date Diomedes Hammer NP PCP - General 03/18/23
== END 2024-06-22 15:19 | disposition home or self-care (01) ==
LOC: HO.HMCH 14:22
PROVIDERS: Visit Provider Internal Medicine
DX: R79.89 Other specified abnormal findings of blood chemistry (principal); M54.2 Cervicalgia; G43.909 Migraine, unspecified, not intractable, without status migrainosus; C55 Malignant neoplasm of uterus, part unspecified; R13.10 Dysphagia, unspecified; M25.511 Pain in right shoulder; N92.6 Irregular menstruation, unspecified

== ENCOUNTER → 2024-06-22 15:40 | Outpatient (BNV) | payer OTHER, SELFPAY | PROVIDERS: Visit Provider Radiology Diagnostic Radiology | DX: M54.2 Cervicalgia (principal); M25.511 Pain in right shoulder | CPT/HCPCS: 72040; 73030 ==

== ENCOUNTER 2024-07-13 09:58 | Outpatient (AMB) | payer OTHER, SELFPAY ==
--- NOTE | 2024-07-13 10:13 | MHC.OFFVIS ---
Vital Signs 07/13/24 10:14 Height 5 ft 5 in Weight 129 lb BMI 21.5 BP 90/62 Blood Pressure Location Rt brachial Position Sitting Pulse 88 Pulse Source Pulse Oximeter Pulse Oximetry (%) 98 Oxygen Delivery Method Room Air Intake Visit Reasons: INP-Migraines Steward/Stewardess Chief Cargo Vessel Required: Yes Steward/Stewardess Chief Cargo Vessel Services: Steward/Stewardess Chief Cargo Vessel Present Steward/Stewardess Chief Cargo Vessel Name: [id number] Accompanied by: Self / Same As Patient Allergies fentanyl patch Allergy (Mild, Uncoded 07/13/24 10:16) Dizziness Medication List - Last Reconciled 07/13/24 by HAMZAH Helms baclofen 10 mg PO BEDTIME PRN bupropion HCl XL 300 mg PO QAM butalbital-acetaminophen 50-325 mg 1 tab PO Q4H PRN cholecalciferol (vitamin D3) 25 mcg PO DAILY diaper,brief,adult,disposable ([employer] Adult Briefs) As directed diclofenac sodium 1% 2 grams topical BID diphenhydramine HCl 50 mg PO BEDTIME diphenoxylate-atropine 2.5-0.025 mg 1 tab PO QID PRN dronabinol 5 mg PO BID duloxetine 30 mg PO DAILY hydrocortisone 2.5% 1 appl topical BID PRN hydroxyzine HCl 25 mg PO TID PRN lidocaine 5% 1 patch topical DAILY lidocaine 4% 1 appl topical DAILY PRN loratadine 10 mg PO DAILY lorazepam 0.5 mg PO BEDTIME PRN megestrol 5 mL PO DAILY multivitamin 1 tab PO DAILY omeprazole 40 mg PO DAILY sucralfate 10 mL PO QID sumatriptan succinate 50 mg PO Q2-4H PRN topiramate 25 mg PO DAILY tramadol 50 mg PO TID PRN trazodone 50 mg PO BEDTIME PRN HPI Comments Details: Right-handed 43-yr-old female presents for new pt evaluation of headache disorder. Pt reports she started having headaches in early adulthood, however they worsened after she was diagnosed with cervical cancer in 2016 and underwent chemotherapy and radiation therapy. Since, she has been prone to frequent and severe migraine associated with marked photophobia and nausea and vomiting. She does note, that she had a recent left tragus piercing, which she feels is helping some. She also notes, that she had a recent fall, and since she has had right sided neck pain, which is exacerbated when she has a more severe migraine attack. Recent XR C-spine/right shoulder, showed only mild degenerative changes in the lower cervical spine and unremarkable XR right shoulder. She is doing PT for this, which is helping some She does not clearly recall what she is currently taking for her migraine or her previous migraine trials. She had previously been seen by [facility]rology, appears that last time was in 2022- however, was able to review previous neurology notes, which does show she has tried several medications without significant benefit. PMH and ROS are notable for:? General: fatigue Musculoskeletal disorders or injury: has had some neck pain s/p a fall- has been doing PT. uses a cane to walk. History of concussion/head injury: denies Mood d/o: Anxiety, Depression Respiratory d/o: may have SOB at times CV disease: in the past has had pericardial effusion- unsure when Clotting or hematology d/o: denies Endocrine or metabolic d/o: denies History of seizure: denies. 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 Family history of migraine or other headache disorder: none Lifestyle considerations: Sleep routine: Usual bedtime: 9pm and wake-up time: 10am Sleep difficulties: Sleep initiation and maintenance difficulties. Has had normal in-lab PSG at [facility]. Endorses: Fatigue,[Apneas,] [Some cramps in feet and feet when in bed] Caffeine use: none Substance use: none Exercise:?tries, but has been weaker recently Employment:?on disability Headache questionnaire:? Age/time of onset: Early adulthood Preceding causes: No known proceeding causes Typical headache characteristics: Prodrome symptoms: Denies Aura: denies Pain intensity: moderate-severe Location, quality, characteristics: Starts as a pulsating in the right frontal eye region, at times becomes holocranial Associated symptoms: Right-sided neck stiffness, photophobia, phonophobia, osmophobia, at times allodynia, nausea, when severe- vomiting, cognitive difficulties, activity intolerance, Postdrome: Unsure Triggers: Unsure Time of day: Unsure Duration and Frequency: Varies, has been daily, an attack can last 3-7 days, How does headache impact your life? has difficulty doing ehr activities Current acute medication use/interventions: she is not sure Current preventative medication use: unsure Current non-pharmacological interventions: ice [facility] Medical History Uterine cancer Surgical History History of tubal ligation Social History Housing: House Alcohol intake: never Patient Tobacco Use Status: Never used Tobacco e-Cigarette/Vaping Use: Never Used Second Hand Smoke Exposure: No service: No Current occupational status: disabled Cognitive needs: No Hearing needs: No Vision needs: No Physical Exam Vital Signs: Last Vital Signs Pulse 88 07/13/24 10:14 BP 90/62 07/13/24 10:14 Pulse Ox 98 07/13/24 10:14 Oxygen Delivery Method Room Air 07/13/24 10:14 BMI result Body Mass Index 21.5 Const Orientation/consciousness: patient oriented x3 Resp Effort & Inspection: normal respiratory effort and able to speak in complete sentences Neuro Other: Wearing sunglasses. Marked photophobia bilaterally No palpable scalp tenderness. Bilateral TMJ crepitus Mallampati stage 3 Slightly limited cervical range of motion, mild bilateral posterior cervical and upper trap tightness, right lateral neck/SCM tightness and tenderness. Bilateral negative Spurling for radiating neck pain Muscle strength 5/5 She is wearing a left wrist splint- for chronic hand paresthesias Walks with a cane. General: patient oriented x3 Cranial nerves: Yes CN's II-XII intact bilaterally Cognition (Neuro): normal cognition Motor exam (neuro): 5/5 motor strength present throughout Deep tendon reflexes (DTR's): Right triceps reflex intensity grade: 2+, Left triceps reflex intensity grade: 2+, Rt Biceps (C5, C6): 2+, Left biceps reflex intensity grade: 2+, Right brachioradialis reflex intensity grade: 2+, Left brachioradialis reflex intensity grade: 2+, Right patellar reflex intensity grade: 2+ and Left patellar reflex intensity grade: 2+ Coordination: [id number] test normal Pupils: Normal pupillary reactivity/response: bilateral Psych Appearance: grossly normal Mental Status: mental status grossly normal Speech and movement: Normal speech and movement present Affect: normal affect Attitude: cooperative Thought process: Normal thought process present Results Reviewed Results Reviewed: 06/22/2024, XR/XR cervical spine 2V Mild degenerative disc disease of the lower cervical spine. 06/22/2024, XR/XR shoulder RT min 2V IMPRESSION: Unremarkable examination of the right shoulder. Per 03/04/2022 [facility] Neurology office note: CT ANGIO HEAD ?04/29/2018 Impression:? Normal CT venogram of head. No evidence of dural sinus thrombosis ?? CT HEAD W/O ?04/29/2018? IMPRESSION: Normal. Assessment & Plan Assessment & Plan (1) Worsening headaches: Code(s): R51.9 - Headache, unspecified Category: Medical (2) Migraine: Code(s): G43.909 - Migraine, unspecified, not intractable, without status migrainosus Category: Medical (3) Neck pain: Code(s): M54.2 - Cervicalgia Category: Medical (4) Sleep difficulties: Code(s): G47.9 - Sleep disorder, unspecified Category: Medical Plan Pt advised to undergo: Baseline brain MRI with and without contrast- as patient has chronic migraine, marked photophobia, history of cervical cancer. For overall headache management: Optimize good self-care, including but not limited to maintaining a healthy diet, adequate fluid intake, adequate sleep, and engaging in regular physical activity. Track headaches, especially after any treatment regimen changes. Migraine [employer] is one of many headache tracking apps. Information shared on non-pharmacological interventions which may help to alleviate headache attack burden. For light sensitivity: Patient may benefit from trying blue light filtering glasses, green glasses, green light therapy. Avoiding wearing sunglasses inside. Continue PT for neck pain status post fall Monitor sleep For acute headache treatment: Discussed importance of taking acute medications at the first sign of headache, however stressed importance of avoiding acute medication overuse (especially with combined headache medications). Trial increasing sumatriptan from 50 mg to 100 mg as needed: Sumatriptan 100mg tab, 1/2 - 1 tab (50-100mg) at onset of headache, may repeat in 2 hours. Max of 2 tabs (200mg) per 24 hours. May take sumatriptan with OTC Tylenol 650-1,000mg every 4-6 hours, Ibuprofen (liquid gels) 600mg every 6 hours, or Naproxen (liquid gels) 440mg q 12 hrs prn. Potential adverse effects of triptans, include but are not limited to nausea, fatigue, chest tightness/tingling (usually passes within a few minutes), medication overuse headaches. Previous acute migraine medication trials: Acetaminophen ?500mg tabs? Tramadol? Fioricet ?50/325/40mg ? 1 cap ? q ?4hrs ? - does not help . ? lorazepam 0.5mg? hydroxyzine ?25mg? sumatriptan ? 50mg? Acute migraine medication contraindications: None at this time For headache prevention medication: Preventative medications should be taken routinely as prescribed for best effect, it may take several weeks for full effect to take effect. Start Riboflavin 400mg qam Start Magnesium 400mg qhs- may help head and feet cramps and cervical neck tightness as well. We will reach out to patient's pharmacy, to confirm if patient is regularly filling the topiramate 25-50 mg twice a day order. Upon review, consider CGRP MaB or Botox therapy Previous migraine prevention medication trials: Amitriptyline ?- 2018 citalopram - 2018? Gabapentin ? 400g ?3x/ day? Topamax ? 50mg ? 1 tab ?2x/ day ?- per PCP note ? Trazodone ? ? 50mg? Duloxetine ?- 30mg ? Wellbutrin?? - 300mg?xl?? Migraine prevention medication contraindications: would avoid all antihypertensive treatments, including beta-blockers, as patient is prone to hypotension. Would avoid Aimovig due to risk for worsening cramps. Will follow-up upon review of above and patient to follow-up in clinic in 3-6 months or sooner prn. Medications: New magnesium oxide may hold for loose stools 400 mg PO BEDTIME 30 tabs 6RF 30 days M79.7 - Fibromyalgia riboflavin (vitamin B2) 400 mg PO DAILY 30 tabs 6RF 30 days M79.7 - Fibromyalgia sumatriptan succinate 50 - 100 mg orally at onset of headache, may repeat in 2 hrs PRN; max 2 tabs per day or 4 tabs/week (may take with Ibuprofen) 12 tabs 6RF migraine headache 30 days M79.7 - Fibromyalgia Coding Level of Care Code New Pt Level 4 (12555) Diagnoses Worsening headaches R51.9 Migraine G43.909 Neck pain M54.2 Sleep difficulties G47.9
[2024-07-13 10:14] VITALS: BP 90/62; PULSE 88; O2SAT 98; BMI 21.5
--- OUTSIDE RECORDS SUMMARY | 2024-07-13 11:24 | XMS_ITS | Clinical Summary ---
Author Organization [facility] Address [address] [place] [address] Care Team Providers Care Sand Filler Name Role Phone HarmanDiomedes black [facility] Primary Care Prov ider Source Comments [...] recurrent major depressive disorder, without psychotic features ([facility]) 03/23/2019 Hx of cervical cancer 03/23/2019 Overview (11/18/2019): Stage IIIb, treated with radiology and chemotherapy 2015, follows LITHOSTRIPPER/ONC Primary insomnia 03/23/2019 Myalgia 03/23/2019 Resolved Problems [...] 01/27/2017 (Leeann farrar by Outside Provider), 11/01/2013 [id number] ( season) 2023 021, 08/26/2020 Imm-Influenza (#1) 2023 05/02/2015, 1 , 02/20/2008, Additional history exists Alcohol and Drug Screen 02/11/2024 11/11/19, 05/10/2021, 01/09/2021, Additional history exists Depression Monitoring 02/11/2024 11/11/2023 , 05/10/2021, 01/09/2021, Additional history exists Diabetes Screening 08/21/2024 08/21/2021, 0 08/21/2021, 11/18/2019, Additional history exists Annual Wellness (Adult): Indicated (All Coverage) 11/10/2024 11/11/2023, 10/01/2022, 05/10/2021, Additional history exists Hypertension Screening [...] 4 3:00 AM EST Examination, medical, general COMPREHENSIVE METABOLIC PANEL Routine 08/21/2021 12:00 PM EDT Alteration in appetite LIPID PANEL Routine 08/21/2021 12:00 PM EDT Alteration in appetite HEPATITIS A,B,C PANEL Routine 11/18/2019 2:10 PM EDT Diarrhea, unspecified type Dyspepsia HIV 1/2 AG/AB Routine 05/02/2015 4:34 PM EDT Routine general medical examination at a [facility] facility from Last 3 Months or Most Recently Relevant to Health Maintenance Results * REFERRAL FOR MAMMOGRAM SCREENING (01/29/2024 3:00 AM EST) 01/29/2024 3:00 AM EST Diomedes Hammer [facility] IMG RFL MAMMO Fi nal Result * (ABNORMAL) LIPID PANEL (08/21/2021 12:00 PM EDT) CHOLESTEROL, TOTAL 204(H) <200 mg/dL [facility] HDL CHOLESTEROL 71 > OR = 50 mg/dL [facility] TRIGLYCERIDES 65 <150 mg/dL [facility] LDL-CHOLESTEROL 117(H) 99 mg/dL (calc) [facility] Comment: Reference range: <100 Desirable range <100 mg/dL for primary prevention; ?? <70 mg/dL for patients with CHD or diabetic patients with > or = 2 CHD risk factors. LDL-C is now calculated using the Drake-Parker calculation, which is a validated novel method providing better accuracy than the Friedewald equation in the estimation of LDL-C. Drake SS et al. SAYDA. 2013;310(38): 2987-1044 (http://education.[employer]/faq/YTE812) CHOL/HDLC RATIO 2.9 <5.0 (calc) [facility] NON-HDL CHOLESTEROL 133(H) <130 mg/dL (calc) [employer] Comment: For patients with diabetes plus 1 major ASCVD risk factor, treating to a non-HDL-C goal of <100 mg/dL (LDL-C of <70 mg/dL) is considered a therapeutic option. Blood Blood / Unknown 08/21/2021 1 2:00 PM EDT 08/21/2021 12:00 PM EDT Diomedes Hammer [facility] - BLOOD DRAW F inal Result [facility] [address] [address], [employer] [address] [place] [address],[place] [address] * (ABNORMAL) COMPRE METAB PANEL (08/21/2021 12:00 PM EDT) GLUCOSE 84 65 - 99 mg/dL [employer] Comment: ?Fasting reference interval UREA NITROGEN (BUN) 18 7 - 25 mg/dL [employer] CREATININE (blood) 0.83 0.50 - 0.99 mg/dL [employer] EGFR 91 > OR = 60 mL/min/1 .73m2 [employer] Comment: The eGFR is based on the CKD-EPI 2020 equation. To calculate the new eGFR from a previous Creatinine or Cystatin C result, go to https://www.kidney.org/professionals/ kdoqi/gfr%5Fcalculator BUN/CREATININE RATIO NOT APPLICABLE 6 - [employer] SODIUM 139 135 - 146 mmol/L [employer] POTASSIUM 4.2 3.5 - 5.3 mmol/L [employer] CHLORIDE 102 98 - 110 mmol/L [facility] CARBON DIOXIDE 30 20 - 32 mmol/L [facility] CALCIUM 10.1 8.6 - 10.2 mg/dL [facility] PROTEIN, TOTAL 7.6 6.1 - 8.1 g/dL [facility] ALBUMIN 4.7 3.6 - 5.1 g/dL [facility] GLOBULIN 2.9 1.9 - 3.7 g/dL (calc) [facility] ALBUMIN/GLOBUL IN RATIO 1.6 1.0 - 2.5 (calc) [facility] BILIRUBIN, TOTAL 0.5 0.2 - 1.2 mg/dL [facility] ALKALINE PHOSPHATASE 85 31 - 125 U/L [facility] AST 30 10 - 30 U/L [facility] ALT 34(H) 6 - 29 U/L [facility] Blood Blood / Unknown 08/21/2021 1 2:00 PM EDT 08/21/2021 12:00 PM EDT Diomedes Hammer [facility] - BLOOD DRAW E dited Result - Final [facility] [address] [address], [facility] [address] [address] * HEPATITIS A,B,C PANEL (11/18/2019 2:10 PM EDT) HEPATITIS B SURFACE ANTIBODY NEGATIVE NEGATIVE [facility] HEPATITIS B SURFACE ANTIGEN NEGATIVE NEGATIVE [facility] Comment: Over the counter supplements containing high doses of biotin may interfere with this assay. ??If interference is suspected, patients shoud be retested after refraining from biotin supplements for 72 hours. HEPATITIS C VIRUS DIAGNOSTIC NEGATIVE NEGATIVE [facility] HEPATITIS A ANTIBODY TOTAL NEGATIVE NEGATIVE [facility] Comment: Over the counter supplements containing high doses of biotin may interfere with this assay. ??If interference is suspected, patients shoud be retested after refraining from biotin supplements for 72 hours. HEPATITIS B CORE ANTIBODY NEGATIVE NEGATIVE [facility] Blood Blood / Unknown 11/18/2019 2 :10 PM EDT 11/18/2019 6:13 PM EDT Narrative [facility] - 11/18/2019 7:57 PM EDT [employer], a member of [address] [address] [place] [employer] - Chante Vance MD PT ID [id number] ORD# [id number] [facility] - BLOOD DRAW E dited Result - Final [facility] [address], [place] [phone] * HIV SCREENING TEST (05/02/2015 4:34 PM EDT) HIV 1/2 AB/AG NEG NEG [facility] Blood specimen (specimen) Blood / Unknown 05/02/2015 4:34 PM EDT us Brennan Blackmon MD LAB - BLOOD DRAW Final Result [facility] [address] [place] [address], [place] [phone] from Last 3 Months or Most Recently Relevant to Health Maintenance Insurance [place] MED[place] [address] [facility] Medicaid Address: [address] [place] [address] [employer] Care Teams Sand Filler Relationship Specialty Start Date End Date Diomedes Hammer FNP [address] [place] [address] PCP - General Family Medicine, PARTS SALESMAN 05/02/20
== END 2024-07-13 11:33 | disposition home or self-care (01) ==
LOC: HO.HSMS 09:59
PROVIDERS: Visit Provider Nurse Practitioner Family
DX: R51.9 Headache, unspecified (principal); G43.909 Migraine, unspecified, not intractable, without status migrainosus; M54.2 Cervicalgia; G47.9 Sleep disorder, unspecified
CPT/HCPCS: 99204

== ENCOUNTER → 2024-07-13 09:58 | Outpatient (BNVA) | payer OTHER, SELFPAY | PROVIDERS: Visit Provider Nurse Practitioner Family | DX: G43.909 Migraine, unspecified, not intractable, without status migrainosus (principal); G47.9 Sleep disorder, unspecified; M54.2 Cervicalgia | CPT/HCPCS: 99202 ==

== ENCOUNTER 2024-07-14 14:16 | Outpatient (AMB) | payer OTHER, SELFPAY ==
--- OUTSIDE RECORDS SUMMARY | 2024-07-14 14:19 | XMS_ITS | Clinical Summary ---
Author Organization [facility] Address [address] [place] [address] Care Team Providers Care Piece Work Inspector Name Role Phone Harman Diomedes BETSY Primary Care Provider [phone] Surgical History Surgery Date Site/Laterality Comments COLPOSCOPY PROCEDURE: FL COLPOSCOPY ENTIRE VAGINA W/CERVIX IF PRESENT Medical History Medical History Date Comments Neuropathy 09/03/2017 DX:Neuropathy; C OMMENT: EMG pending through [facility] pain management; ? 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 Patient reported greatest concern at this time [...] RESULTING AGENCY - 11/26/2017 12:51 PM EDT [id number] THINPREP PAP, IMAGED: NEGATIVE FOR SQUAMOUS INTRAEPITHELIAL [...] Recently Relevant to Health Maintenance Care Teams Piece Work Inspector Relationship Specialty Start Date End Date Diomedes Hammer NP PCP - General 03/18/23
--- NOTE | 2024-07-14 14:24 | MHC.PC.OV ---
Vital Signs 07/14/24 14:25 Height 5 ft 5 in Weight 129 lb BMI 21.5 BP 108/80 Blood Pressure Location Lt brachial Position Sitting Intake Visit Reasons: follow up Fence Maker Required: No Accompanied by: Self / Same As Patient Allergies fentanyl patch Allergy (Mild, Uncoded 07/14/24 14:39) Dizziness Medication List - Last Reconciled 07/14/24 by Ellie Benites MD baclofen 10 mg PO BEDTIME PRN bupropion HCl XL 300 mg PO QAM butalbital-acetaminophen 50-325 mg 1 tab PO Q4H PRN cholecalciferol (vitamin D3) 25 mcg PO DAILY diaper,brief,adult,disposable ([employer] Adult Briefs) As directed diclofenac sodium 1% 2 grams topical BID diphenhydramine HCl 50 mg PO BEDTIME diphenoxylate-atropine 2.5-0.025 mg 1 tab PO QID PRN dronabinol 5 mg PO BID duloxetine 30 mg PO DAILY hydrocortisone 2.5% 1 appl topical BID PRN hydroxyzine HCl 25 mg PO TID PRN lidocaine 5% 1 patch topical DAILY lidocaine 4% 1 appl topical DAILY PRN loratadine 10 mg PO DAILY lorazepam 0.5 mg PO BEDTIME PRN magnesium oxide 400 mg PO BEDTIME 30 days megestrol 5 mL PO DAILY multivitamin 1 tab PO DAILY omeprazole 40 mg PO DAILY riboflavin (vitamin B2) 400 mg PO DAILY 30 days sucralfate 10 mL PO QID sumatriptan succinate 50 - 100 mg orally at onset of headache, may repeat in 2 hrs PRN; max 2 tabs per day or 4 tabs/week (may take with Ibuprofen) 30 days sumatriptan succinate 50 mg PO Q2-4H PRN topiramate 25 mg PO DAILY tramadol 50 mg PO TID PRN trazodone 50 mg PO BEDTIME PRN Tobacco use date assessed: 03/29/24 Dental Screening Dental Screen Date: 03/29/24 HPI HPI Comments History of Present Illness Details The patient is a 43-year-old female presenting with concerns related to chronic neck pain and migraines. Her migraines, previously managed using sunglasses with pink-tinted lenses, often begin upon waking and result in significant photophobia. Despite these measures, she continues to experience these migraines, which are linked to a history of post-concussion syndrome following a fall. The chronic neck pain radiates to her arms, impacting her sleep and mobility, with legs frequently failing her during ambulation. The patient reports ongoing itching in her eyes, treated with cold compresses, likely exacerbated by the environment. Additionally, she has had an allergic reaction to a fentanyl patch, causing dizziness and prompting a reassessment of her pain management. She also has a history of chronic diarrhea, previously evaluated by colonoscopy with no significant findings, and she continues under Cologuard screening due to non-menstrual gastrointestinal bleeding. Insomnia is a significant issue for her, coupled with phantom fever episodes at night, which have worsened her sleep quality and her overall condition. Her medication history includes the use of muscle relaxants like baclofen, although primarily it induces sleepiness without visible pain relief. [facility] Medical History Uterine cancer Surgical History History of tubal ligation Social History Housing: House Alcohol intake: never Patient Tobacco Use Status: Never used Tobacco e-Cigarette/Vaping Use: Never Used Second Hand Smoke Exposure: No service: No Current occupational status: disabled Cognitive needs: No Hearing needs: No Vision needs: No Questionnaire Thrive Questionnaire Date Thrive assessed: 03/29/24 I am a: Patient What is your living situation today?: I have a steady place to live Within the past 12 months, did the food you bought not last and you didn't have the money to get more?: Sometimes True Within the past 12 months, did you worry whether your food would run out before you got money to buy more?: Sometimes True Do you have trouble paying for medicines?: I choose not to answer this question Do you have trouble getting transportation to medical appointments?: I choose not to answer this question Do you have trouble paying your heating and electricity bill?: Yes Do you have trouble taking care of your child, family member or friend?: I choose not to answer this question Do you have trouble with day-to-day activities such as bathing, preparing meals, shopping, managing finances, etc.?: I choose not to answer this question Are you currently unemployed and looking for a job?: Yes Are you interested in more education?: I choose not to answer this question Please select the resources that you would like help with: None Currently or been in a relationship where the following occur: No concerns reported THRIVE Score: 3 HARVINDER-7 AMB Questionnaire HARVINDER-7 Date HARVINDER - 7 assessed: 03/29/24 Source: Developed by Drs. Cale Jaramillo, Vera Lopez, Enrico De Dios and colleagues, with an educational florence from [employer]. Review of Systems Const All systems reviewed & are unremarkable except as noted in HPI and below Card Denies chest pain at rest, Denies chest pain with activity, Denies edema, Denies irregular heart rhythm, Denies claudication, Denies dyspnea, Denies dyspnea on exertion, Denies orthopnea, Denies paroxysmal nocturnal dyspnea and Denies slow heart rate Resp Denies cough, Denies dyspnea and Denies dyspnea on exertion GI Denies abdominal pain, Denies change in bowel habits, Denies excessive flatus, Denies nausea and Denies vomiting Physical exam (Primary Care) Vital Signs: Last Vital Signs BP 108/80 07/14/24 14:25 BMI result Body Mass Index 21.5 Tobacco/Smoking Status: Tobacco use Status Tobacco use date assessed 03/29/24 07/14/24 14:31 Patient Tobacco Use Status Never used Tobacco 07/14/24 14:31 e-Cigarette/Vaping Use Never Used 07/14/24 14:31 Thrive Assessment: Date of Thrive Assessment Date Thrive assessed 03/29/24 07/14/24 14:31 Currently or been in a relationship where the following occur: No concerns reported Resp Effort & Inspection: normal respiratory effort Auscultation: clear to auscultation bilaterally Cardio Jugular venous distension: no JVD Rate: regular rate Rhythm: regular rhythm Heart sounds: S1 normal heart sound present and S2 normal heart sound present Extrem General: Yes full ROM Coding Level of Care Code Est Pt Level 4 (38258) Complex EM visit Add On G2211 Diagnoses Neck pain M54.2 Migraine G43.909 Uterine cancer C55 Anxiety F41.9 Depression F32.A Time Spent (min) 22 Assessment & Plan Assessment & Plan (1) Neck pain: Code(s): M54.2 - Cervicalgia Category: Medical (2) Migraine: Code(s): G43.909 - Migraine, unspecified, not intractable, without status migrainosus Category: Medical (3) Uterine cancer: Comment: Initial diagnosis and treatment in [place] in 2016 having weekly cisplatin in whole pelvic radiation followed by 6 cycles of carbo/Taxol CT scan of abdomen and pelvis done 12/18/2015 no evidence of metastatic disease in remission since 2016 Code(s): C55 - Malignant neoplasm of uterus, part unspecified Category: Medical (4) Anxiety: Comment: therapist and psychiatrist Code(s): F41.9 - Anxiety disorder, unspecified Category: Medical (5) Depression: Comment: Has therapist Code(s): F32.A - Depression, unspecified Category: Medical Plan Management of the patient's migraines will continue with the use of sunglasses to alleviate photophobia. Routine follow-up is necessary to evaluate post-concussion symptoms and associated neck pain. Physical therapy remains part of the pain management strategy. The fentanyl patch is discontinued due to an allergy, and alternative measures need review. The unresolved gastrointestinal issues lead to ongoing surveillance, with upcoming gastroenterology consultations. Insomnia will be addressed with prescribed baclofen, reinforcing its sporadic use. Scheduled neurology and rheumatology appointments will provide further assessment of her chronic conditions. Patient was informed and verbally consented to the use of an ambient scribe for clinic note documentation during this visit. I discussed with the patient the continuation of photophobia management using sunglasses for migraine relief. We reviewed her post-concussion syndrome and agreed on the value of ongoing evaluations, including potential additional imaging. As her chronic neck pain persists, I emphasized the role of physical therapy and outlined the next steps should improvements stall. We consented to stop fentanyl use due to her allergic reaction and assess alternative analgesics. The recurrent gastrointestinal symptoms necessitate continued surveillance, while her insomnia, addressed by ongoing baclofen use, will be reassessed regularly. Follow-ups in neurology and rheumatology will provide further analysis and guide treatment modifications as needed. Medications: New cromolyn 4% 1 drp ophthalmic (eye) QID PRN 10 mL 1RF itchy eyes 5 days Changed From baclofen 10 mg PO BEDTIME PRN 14 tabs 0RF muscle spasm To baclofen 10 mg PO BEDTIME PRN 30 tabs 0RF muscle spasm 30 days Patient Instructions: - Continue using sunglasses for light-sensitive migraine relief. - Attend physical therapy sessions for neck pain. - Stop using fentanyl patches due to allergies; consult for alternatives. - Monitor gastrointestinal symptoms; follow up with gastroenterology. - Take baclofen as needed for sleep; observe for side effects. - Keep neurology and rheumatology appointments for further assessment.
[2024-07-14 14:25] VITALS: BP 108/80; BMI 21.5
== END 2024-07-14 14:56 | disposition home or self-care (01) ==
LOC: HO.HMCH 14:17
PROVIDERS: Visit Provider Internal Medicine
DX: M54.2 Cervicalgia (principal); G43.909 Migraine, unspecified, not intractable, without status migrainosus; C55 Malignant neoplasm of uterus, part unspecified; F41.9 Anxiety disorder, unspecified; F32.A Depression, unspecified

== ENCOUNTER → 2024-07-14 14:16 | Outpatient (BNVA) | payer OTHER, SELFPAY | PROVIDERS: Visit Provider Internal Medicine | DX: M54.2 Cervicalgia (principal); G43.909 Migraine, unspecified, not intractable, without status migrainosus; H53.149 Visual discomfort, unspecified; G47.00 Insomnia, unspecified; C55 Malignant neoplasm of uterus, part unspecified; F41.9 Anxiety disorder, unspecified; F32.A Depression, unspecified | CPT/HCPCS: 99212 ==

== ENCOUNTER 2024-09-08 13:54 | Outpatient (RCR) | payer OTHER, SELFPAY ==
--- NOTE | 2024-08-11 15:28 | MHC.PT.EP ---
[facility] [place] Office [place] Office [place] Office [address] [phone] F: [phone] F: [phone] F: [phone] F: [phone] Physical Therapy Plan of Care Date of Evaluation: 08/11/24 Date of Surgery: Diagnosis: Cervicalgia Pain in right shoulder Neck pain *Right shoulder pain Assessment: Pt is a pleasant 43yo F who presents to PT with neck and right shoulder pain. Pt presents to PT with current impairments in pain, decreased ROM, decreased strength, soft tissue restrictions, and impaired posture. She is limited functionally by lifting, reaching, looking down, looking up, looking side to side, prolonged sitting, and sleeping. She is a good candidate for skilled PT in order to address current impairments to facilitate return to PLOF. She is recommended to be seen 1x/week for 5 weeks and will be reassessed Frequency and Duration: The patient will be seen 1x/week for 5 weeks Short Term Goals: Pt will be I with HEP to promote self management of symptoms Pt will improve cervical rotation by at least 10 degrees B Stoneworker Goals: Pt will achieve cervical ROM WFL all planes to assist with functional tasks such as driving Pt will improve R shoulder flexion to at least 150 degrees to assist with lifting and overhead ADLs Pt will demonstrate improvements in function as evidenced by statistically significant improvement in Neck Pain Disability Index Questionnaire Treatment Plan: Modalities to reduce pain, spasms and effusion. Manual therapy to restore motion and function. Therapeutic exercise to improve strength and flexibility. Neuromuscular re-education for posture and balance. Therapeutic activities to return to functional activities of daily living. Electronically signed by: Amelia Barragan, PT, DPT Please sign and return to therapist. Thank you for your referral.
== END 2024-10-19 11:44 | disposition home or self-care (01) ==
LOC: HO.PTS 13:54
DX: M54.2 Cervicalgia (principal); M25.511 Pain in right shoulder
CPT/HCPCS: 97110; 97140; 97162

== ENCOUNTER 2024-10-07 10:57 | Outpatient (REF) | payer OTHER, SELFPAY ==
[2024-10-07 14:30] LABS: Resp Syncy Virus RNA Qual PCR NEGATIVE (Negative); SARS COV2 PCR INHOUSE NEGATIVE (Negative)
== END 2024-10-07 10:58 | disposition home or self-care (01) ==
LOC: HO.LAB 10:57
PROVIDERS: Visit Provider Nurse Practitioner Family
DX: J06.9 Acute upper respiratory infection, unspecified (principal); G43.709 Chronic migraine without aura, not intractable, without status migrainosus
CPT/HCPCS: 87637; 99212

== ENCOUNTER 2024-10-07 10:57 | Outpatient (AMB) | payer OTHER, SELFPAY ==
[2024-10-07 11:38] VITALS: BP 96/60; PULSE 88; TEMP 36.8; O2SAT 98; BMI 21.6
--- NOTE | 2024-10-07 11:38 | AM.OFFWIN_ITS ---
Intake Vital Signs 10/07/24 11:38 Height 5 ft 5 in Weight 130 lb BMI 21.6 BP 96/60 Blood Pressure Location Rt brachial Position Sitting Pulse 88 Pulse Source Pulse Oximeter Temp 98.2 F Temp Source Oral Pulse Oximetry (%) 98 Oxygen Delivery Method Room Air Intake Visit Reasons: EP-fever, headaches, hand weakness, trap pain Intake Note: pt presents with concern for fever, red/purple lips with burning and swelling, headache for 2 weeks. 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 Pt reports taking Acetaminophen with no relief. Pt does not have a Thermometer at home. Denies Nausea or vomiting. [facility] Medical History (Updated 10/07/24 @ 12:21 by Jeannie Salinas NP) Acute respiratory disease Uterine cancer Surgical History History of tubal ligation Social History Housing: House Alcohol intake: never Patient Tobacco Use Status: Never used Tobacco e-Cigarette/Vaping Use: Never Used Second Hand Smoke Exposure: No service: No Current occupational status: disabled Cognitive needs: No Hearing needs: No Vision needs: No Review of Systems Const All systems reviewed & are unremarkable except as noted in HPI and below Physical Exam Vital Signs: Last Vital Signs Temp 98.2 F 10/07/24 11:38 Pulse 88 10/07/24 11:38 BP 96/60 10/07/24 11:38 Pulse Ox 98 10/07/24 11:38 Oxygen Delivery Method Room Air 10/07/24 11:38 BMI result Body Mass Index 21.6 Const General: no acute distress; No comfortable Nutritional Appearance: well nourished Orientation/consciousness: patient oriented x3 HEENT Head: Yes normocephalic Ears: external ears normal and TM's normal bilaterally General nose exam: Normal external nose present Face and sinus: Yes sinuses nontender Mouth: lip normal, tongue normal and moist mucous membranes Throat: Yes uvula midline Resp Effort & Inspection: normal respiratory effort Auscultation: clear to auscultation bilaterally Cardio Heart sounds: S1 normal heart sound present and S2 normal heart sound present Neuro General: patient oriented x3, gait normal and moves all extremities Psych Speech and movement: Normal speech and movement present Assessment & Plan Assessment & Plan (1) Acute respiratory disease: Code(s): J06.9 - Acute upper respiratory infection, unspecified Plan: Ordered SARs Pt has Chronic Migraine headaches - she will f/u with her Neurology. Advised Acetaminophen for Fever and pain relief. Orders: Orders SARS-CoV2/FLU/RSV Today J06.9 - Acute upper respiratory infection, unspecified Coding Level of Care Code Est Pt Level 4 (15049) Diagnoses Acute respiratory disease J06.9 Time Spent (min) 20
--- OUTSIDE RECORDS SUMMARY | 2024-10-07 12:21 | XMS_ITS | Clinical Summary ---
Author Organization [facility] Address [address] [place] [address] Care Team Providers Care Personnel Generalist Manager Name Role Phone Harman Diomedes BETSY Primary Care Provider [phone] Surgical History Surgery Date Site/Laterality Comments COLPOSCOPY PROCEDURE: [place] COLPOSCOPY ENTIRE VAGINA W/CERVIX IF PRESENT Medical History Medical History Date Comments Neuropathy 09/03/2017 DX:Neuropathy; C OMMENT: EMG pending through hospital for behavioral medicine pain management; ? 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 Patient reported greatest concern at this [...] RESULTING AGENCY - 11/26/2017 12:51 PM EDT [id number] THINPREP PAP, IMAGED: NEGATIVE FOR SQUAMOUS INTRAEPITHELIAL LESION AND MALIGNANCY . ATROPHY. RESULT OF APTIMA HIGH RISK HPV ASSAY: POSITIVE (SEROTYPES 16,18,31,33,35,39,45,51,52,56,58,59,66,68) RESULTS OF APTIMA HPV 16 AND HPV 18/45 GENOTYPE ASSAY: HPV TYPE 16: NEGATIVE HPV TYPES 18/45: NEGATIVE CELIA GÓMEZ(ASCP) (CASE ELECTRONICALLY SIGNED 11 26 2017) ADEQUACY: SATISFACTORY. ENDOCERVICAL/TRANSFORMATION ZONE COMPONENT PRESENT. SOURCE: THINPREP PAP HPV ANY DX: REFLEX 16 AND 18, CERVICAL, IMAGED: CLINICAL INFORMATION: HPV ANY DIAGNOSIS. Z12.4, Z01.419, MENOPAUSE, PAP HX: POSITIVE III3B us Gustavo Fernando MD LAB CYTOLOGY ORDERABLES Final Result HISTORICAL TESTING LAB RESULTING AGENCY from Last 3 Months or Most Recently Relevant to Health Maintenance Care Teams Personnel Generalist Manager Relationship Specialty Start Date End Date Diomedes Hammer NP PCP - General 03/18/23
--- OUTSIDE RECORDS SUMMARY | 2024-10-07 12:21 | XMS_ITS | Clinical Summary ---
Author Organization [facility] Address [address] [place] [address] Care Team Providers Care Fertilizer Applicator Name Role Phone Diomedes Hammer [facility] Primary Care Provider [phone] Source Comments PLEASE NOTE, if this patient [...] Active droNABinol (MARINOL) 5 mg capsuleIndications :Cachexia (CMS & HHS-HCC) Take 1 Capsule by mouth 2 (two) [...] recurrent major depressive disorder, without psychotic features ([facility] & HHS-HCC) 03/23/2019 Hx of cervical cancer 03/23/2019 Overview (11/18/2019): Stage IIIb, treated with radiology and chemotherapy 2015, 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 1 11/11/2023 Utilities Answer Date Recorded Utilities [...] 80 11/11/2023 4:00 PM EDT Temperature 37 C (98.6 F) 11/11/2023 4:00 PM EDT Respiratory Rate 16 [...] 01/27/2017 (Leeann farrar by Outside Provider), 11/01/2013 [id number] ( season) 2023 021, 08/26/2020 Alcohol and Drug Screen 02/11/2024 11/11/19 24, 05/10/2021, 01/09/2021, Additional history exists Depression Monitoring 02/11/2024 11/11/2023 , 05/10/2021, 01/09/2021, Additional history exists Diabetes Screening 08/21/2024 08/21/2021, 0 08/21/2021, 11/18/2019, Additional history exists Imm-Influenza (#1) 2024 05/02/2015, 1 , 02/20/2008, Additional history exists Annual Wellness (Adult): Indicated [...] EST) 01/29/2024 3:00 AM EST Diomedes Hammer [facility] IM RFL MAMMO Final Res ult * (ABNORMAL) LIPID PANEL (08/21/2021 12:00 PM EDT) CHOLESTEROL, TOTAL 204(H) <200 mg/dL [facility] HDL CHOLESTEROL 71 > OR = 50 mg/dL [facility] TRIGLYCERIDES 65 <150 mg/dL [facility] LDL-CHOLESTEROL 117(H) 99 mg/dL (calc) [facility] Comment: Reference range: <100 Desirable range <100 mg/dL for primary prevention; <70 mg/dL for patients with CHD or diabetic patients with > or = 2 CHD risk factors. LDL-C is now calculated using the Jose calculation, which is a validated novel method providing better accuracy than the Friedewald equation in the estimation of LDL-C. Drake PERRY et al. SAYDA. 2013;310(19): 2335-3872 (http://education.Amara/faq/QTU120) CHOL/HDLC RATIO 2.9 <5.0 (calc) [facility] NON-HDL CHOLESTEROL 133(H) <130 mg/dL (calc) [facility] Comment: For patients with diabetes plus 1 major ASCVD risk factor, treating to a non-HDL-C goal of <100 mg/dL (LDL-C of <70 mg/dL) is considered a therapeutic option. Blood Blood / Unknown 08/21/2021 1 2:00 PM EDT 08/21/2021 12:00 PM EDT Diomedes Hammer GAS ENGINE PERFORMANCE ENGINEER LAB - BLOOD DRAW Final Re sult [employer] [address] [address], [facility] [address] [place] [address],[place] [address] * (ABNORMAL) COMPRE METAB PANEL (08/21/2021 12:00 PM EDT) GLUCOSE 84 65 - 99 mg/dL [facility] Comment: Fasting reference interval UREA NITROGEN (BUN) 18 7 - 25 mg/dL [facility] CREATININE (blood) 0.83 0.50 - 0.99 mg/dL [facility] EGFR 91 > OR = 60 mL/min/1 .73m2 [facility] Comment: The eGFR is based on the CKD-EPI 2020 equation. To calculate the new eGFR from a previous Creatinine or Cystatin C result, go to https://www.kidney.org/professionals/ kdoqi/gfr%5Fcalculator BUN/CREATININE RATIO NOT APPLICABLE 6 - [facility] SODIUM 139 135 - 146 mmol/L [facility] POTASSIUM 4.2 3.5 - 5.3 mmol/L [facility] CHLORIDE 102 98 - 110 mmol/L [facility] CARBON DIOXIDE 30 20 - 32 mmol/L [facility] [place] [facility] CALCIUM 10.1 8.6 - 10.2 mg/dL [facility] PROTEIN, TOTAL 7.6 6.1 - 8.1 g/dL [facility] ALBUMIN 4.7 3.6 - 5.1 g/dL [facility] [place] [facility] GLOBULIN 2.9 1.9 - 3.7 g/dL (calc) [facility] ALBUMIN/GLOBUL IN RATIO 1.6 1.0 - 2.5 (calc) [facility] [place] [employer] BILIRUBIN, TOTAL 0.5 0.2 - 1.2 mg/dL [facility] ALKALINE PHOSPHATASE 85 31 - 125 U/L [facility] AST 30 10 - 30 U/L [facility] ALT 34(H) 6 - 29 U/L [facility] Blood Blood / Unknown 08/21/2021 1 2:00 PM EDT 08/21/2021 12:00 PM EDT Diomedes Hammer [facility] LAB - BLOOD DRAW Edited R esult - Final [facility] [address] [address], [facility] [address] [address] * HEPATITIS A,B,C PANEL (11/18/2019 2:10 PM EDT) HEPATITIS B SURFACE ANTIBODY NEGATIVE NEGATIVE [facility] HEPATITIS B SURFACE ANTIGEN NEGATIVE NEGATIVE [facility] Comment: Over the counter supplements containing high doses of biotin may interfere with this assay. If interference is suspected, patients shoud be retested after refraining from biotin supplements for 72 hours. HEPATITIS C VIRUS DIAGNOSTIC NEGATIVE NEGATIVE [facility] HEPATITIS A ANTIBODY TOTAL NEGATIVE NEGATIVE [facility] Comment: Over the counter supplements containing high doses of biotin may interfere with this assay. If interference is suspected, patients shoud be retested after refraining from biotin supplements for 72 hours. HEPATITIS B CORE ANTIBODY NEGATIVE NEGATIVE [facility] Blood Blood / Unknown 11/18/2019 2 :10 PM EDT 11/18/2019 6:13 PM EDT Narrative [facility] - 11/18/2019 7:57 PM EDT [employer], a member of [address] [address] Pet Counselor - Chante Vance [place] [id number] ORD# [id number] Diomedes [facility] LAB - BLOOD DRAW Edited R esult - Final [facility] [address], [place] [phone] * HIV SCREENING TEST (05/02/2015 4:34 PM EDT) HIV 1/2 AB/AG NEG NEG [facility] Blood specimen (specimen) Blood / Unknown 05/02/2015 4:34 PM EDT us Brennan Blackmon MD LAB - BLOOD DRAW Final Result [facility] [address] [place] [address], [place] [phone] from Last 3 Months or Most Recently Relevant to Health Maintenance Insurance [place] [address] [facility] Medicaid Address: [address] [place] [address] [employer] Care Teams Fertilizer Applicator Relationship Specialty Start Date End Date Diomedes Hammer FNP [address] [place] [address] PCP - General Family Medicine, [facility] 05/02/20
== END 2024-10-07 12:22 | disposition home or self-care (01) ==
PROVIDERS: Visit Provider Nurse Practitioner Family
DX: J06.9 Acute upper respiratory infection, unspecified (principal)

== ENCOUNTER 2024-10-15 07:33 | Outpatient (AMB) | payer OTHER, SELFPAY ==
--- NOTE | 2024-10-15 07:33 | A.OFFVIS_ITS ---
Intake Visit Reasons: 3 mo follow up Intake Note: Patient presents follow up Migraine. Patient states that she has been having migraines every day and she has been getting blurry vision(believes its from her Sumatriptan). Knifeman Required: Yes Knifeman Language: Cribbing Setter Services: Knifeman Present Knifeman Name: Valentino Suazo Information Interpreted: non-clinical only Accompanied by: Self / Same As Patient Allergies fentanyl Allergy (Unknown, Verified 10/15/24 07:34) Dizziness Medication List - Last Reconciled 10/15/24 by HAMZAH Helms baclofen 10 mg PO BEDTIME PRN 30 days bupropion HCl XL 300 mg PO QAM butalbital-acetaminophen 50-325 mg 1 tab PO Q4H PRN cholecalciferol (vitamin D3) 25 mcg PO DAILY cromolyn 4% 1 drp ophthalmic (eye) QID PRN 5 days diaper,brief,adult,disposable ([employer] Plus Adult Briefs) As directed diclofenac sodium 1% 2 grams topical BID diphenhydramine HCl 50 mg PO BEDTIME diphenoxylate-atropine 2.5-0.025 mg 1 tab PO QID PRN dronabinol 5 mg PO BID duloxetine 30 mg PO DAILY galcanezumab-gnlm ([facility] Pen) 240 mg (2 mL) subcut ONCE 30 days hydrocortisone 2.5% 1 appl topical BID PRN hydroxyzine HCl 25 mg PO TID PRN lidocaine 5% 1 patch topical DAILY lidocaine 4% 1 appl topical DAILY PRN loratadine 10 mg PO DAILY lorazepam 0.5 mg PO BEDTIME PRN magnesium oxide 400 mg PO BEDTIME 30 days megestrol 5 mL PO DAILY multivitamin 1 tab PO DAILY omeprazole 40 mg PO DAILY riboflavin (vitamin B2) 400 mg PO DAILY 30 days sucralfate 10 mL PO QID sumatriptan succinate 50 - 100 mg orally at onset of headache, may repeat in 2 hrs PRN; max 2 tabs per day or 4 tabs/week (may take with Ibuprofen) 30 days sumatriptan succinate 50 mg PO Q2-4H PRN topiramate 25 mg PO DAILY trazodone 50 mg PO BEDTIME PRN HPI Comments Details: Right-handed 43-year-old female presents for follow-up of headache disorder. The patient has not yet had a brain MRI; the order was not saved. The order has been resubmitted. Patient states that since the last visit, she has typically been having 3 migraine days per week. She still has marked photophobia and is inquiring about a window waiver for her car. She is currently at the tail end of a 5-day migraine attack. Since the last visit, Emgality was ordered, and she will be picking up her initial loading dose on Friday with plans to have RN injection training. She did start magnesium, tolerating well. She is not sure if she started riboflavin. She did increase the sumatriptan from 50-100 mg, which helps a little. 08/09/2024, HPI: Right-handed 43-yr-old female presents for new pt evaluation of headache disorder. Pt reports she started having headaches in early adulthood, however they worsened after she was diagnosed with cervical cancer in 2016 and underwent chemotherapy and radiation therapy. Since, she has been prone to frequent and severe migraine associated with marked photophobia and nausea and vomiting. She does note, that she had a recent left tragus piercing, which she feels is helping some. She also notes, that she had a recent fall, and since she has had right sided neck pain, which is exacerbated when she has a more severe migraine attack. Recent XR C-spine/right shoulder, showed only mild degenerative changes in the lower cervical spine and unremarkable XR right shoulder. She is doing PT for this, which is helping some She does not clearly recall what she is currently taking for her migraine or her previous migraine trials. She had previously been seen by [facility], appears that last time was in 2022- however, was able to review previous neurology notes, which does show she has tried several medications without significant benefit. PMH and ROS are notable for:? General: fatigue Musculoskeletal disorders or injury: has had some neck pain s/p a fall- has been doing PT. uses a cane to walk. History of concussion/head injury: denies Mood d/o: Anxiety, Depression Respiratory d/o: may have SOB at times CV disease: in the past has had pericardial effusion- unsure when Clotting or hematology d/o: denies Endocrine or metabolic d/o: denies History of seizure: denies. 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 Family history of migraine or other headache disorder: none Lifestyle considerations: Sleep routine: Usual bedtime: 9pm and wake-up time: 10am Sleep difficulties: Sleep initiation and maintenance difficulties. Has had normal in-lab PSG at [facility]. Endorses: Fatigue,[Apneas,] [Some cramps in feet and feet when in bed] Caffeine use: none Substance use: none Exercise:?tries, but has been weaker recently Employment:?on disability Headache questionnaire:? Age/time of onset: Early adulthood Preceding causes: No known proceeding causes Typical headache characteristics: Prodrome symptoms: Denies Aura: denies Pain intensity: moderate-severe Location, quality, characteristics: Starts as a pulsating in the right frontal eye region, at times becomes holocranial Associated symptoms: Right-sided neck stiffness, photophobia, phonophobia, osmophobia, at times allodynia, nausea, when severe- vomiting, cognitive difficulties, activity intolerance, Postdrome: Unsure Triggers: Unsure Time of day: Unsure Duration and Frequency: Varies, has been daily, an attack can last 3-7 days, How does headache impact your life? has difficulty doing ehr activities Current acute medication use/interventions: she is not sure Current preventative medication use: unsure Current non-pharmacological interventions: ice [facility] Medical History Acute respiratory disease Uterine cancer Surgical History History of tubal ligation Social History Housing: House Alcohol intake: never Patient Tobacco Use Status: Never used Tobacco e-Cigarette/Vaping Use: Never Used Second Hand Smoke Exposure: No service: No Current occupational status: disabled Cognitive needs: No Hearing needs: No Vision needs: No Physical Exam Const Orientation/consciousness: patient oriented x3 Resp Effort & Inspection: normal respiratory effort and able to speak in complete sentences Neuro Other: Marked photophobia bilaterally General: patient oriented x3 Cognition (Neuro): normal cognition Psych Mental Status: mental status grossly normal Speech and movement: Clear speech present Affect: normal affect Attitude: cooperative Thought process: Normal thought process present Telehealth Telehealth Telehealth Platform: [facility] Location of provider rendering services: practice address Location of patient: address on file Patient Identification confirmed using: Name, : Yes Telehealth method: video Patient verbally consented to treatment: Yes Patient verbally consented to billing insurance company: Yes Patient informed of any privacy concerns related to visit: Yes Minutes spent on Phone/Video with Pt.: 13 Results Reviewed Results Reviewed: 06/22/2024, XR/XR cervical spine 2V Mild degenerative disc disease of the lower cervical spine. 06/22/2024, XR/XR shoulder RT min 2V IMPRESSION: Unremarkable examination of the right shoulder. Per 03/04/2022 [facility] office note: CT ANGIO HEAD ?04/29/2018 Impression:? Normal CT venogram of head. No evidence of dural sinus thrombosis ?? CT HEAD W/O ?04/29/2018? IMPRESSION: Normal. Assessment & Plan Assessment & Plan (1) Worsening headaches: Code(s): R51.9 - Headache, unspecified Category: Medical (2) Migraine: Code(s): G43.909 - Migraine, unspecified, not intractable, without status migrainosus Category: Medical Qualifiers: Intractability: not intractable Migraine type: unspecified Status migrainosus presence: without status migrainosus Qualified Code(s): G43.909 - Migraine, unspecified, not intractable, without status migrainosus (3) Neck pain: Code(s): M54.2 - Cervicalgia Category: Medical (4) Sleep difficulties: Code(s): G47.9 - Sleep disorder, unspecified Category: Medical Plan Pt advised to undergo: As ordered- baseline brain MRI with and without contrast- as patient has chronic migraine, marked photophobia, history of cervical cancer. For overall headache management: * Optimize good self-care, including but not limited to maintaining a healthy diet, adequate fluid intake, adequate sleep, and engaging in regular physical activity. * Track headaches, especially after any treatment regimen changes. Migraine [employer] is one of many headache tracking apps. * Information shared on non-pharmacological interventions which may help to alleviate headache attack burden. For light sensitivity: Patient may benefit fromblue light filtering glasses, green glasses, green light therapy. Avoiding wearing sunglasses inside. * Continue PT for neck pain status post fall * Monitor sleep For acute headache treatment: Discussed importance of taking acute medications at the first sign of headache, however stressed importance of avoiding acute medication overuse (especially with combined headache medications). Continue increasing sumatriptan 100 mg as needed: * Sumatriptan 100mg tab, 1/2 - 1 tab (50-100mg) at onset of headache, may repeat in 2 hours. Max of 2 tabs (200mg) per 24 hours. * May take sumatriptan with OTC Tylenol 650-1,000mg every 4-6 hours, Ibuprofen (liquid gels) 600mg every 6 hours, or Naproxen (liquid gels) 440mg q 12 hrs prn. * Potential adverse effects of triptans, include but are not limited to nausea, fatigue, chest tightness/tingling (usually passes within a few minutes), medication overuse headaches. Previous acute migraine medication trials: * Acetaminophen ?500mg tabs? * Tramadol? * Fioricet ?50/325/40mg ? 1 cap ? q ?4hrs ? - does not help . ? * lorazepam 0.5mg? * hydroxyzine ?25mg? * sumatriptan ? 50mg? Acute migraine medication contraindications: None at this time For headache prevention medication: Preventative medications should be taken routinely as prescribed for best effect, it may take several weeks for full effect to take effect. Start Riboflavin 400mg qam Continue Magnesium 400mg qhs- may help head and feet cramps and cervical neck tightness as well. Start Emgality 120mg/ml auto-injection as ordered- pt will pick loading dose up on Friday and schedule RN injecxtion training: Loading dose: 240mg (2 120mg/ml auto-injections) via subcutaneous injection in 2 different sites). Then 30 days after loading dose, start Maintenance dose: 120mg (120mg/ml aut oinjector) subcutaneous injection every month. Patient requests injection training once Emgality available. Important considerations: * Emgality will likely require insurance prior authorization prior to receiving it from the pharmacy. * Potential side effects include allergic reaction and injection site reactions. * Emgality injection training educational video is available to view on [email or web address] * Store Emgality in the refrigerator in it's original packaging in order to protect from light. * Remove Emgality at least 1 hour prior to taking the injection. * Emgality can be left out of the fridge for?up to 7 days at a temperature not above 86?F. If either of these conditions are exceeded, then Emgality must be thrown away. * Once Emgality has been stored out of refrigeration, do not place it back in the refrigerator. Previous migraine prevention medication trials: * Amitriptyline ?- 2019 * citalopram - 2018? * Gabapentin ? 400g ?3x/ day? * Topamax ? 50mg ? 1 tab ?2x/ day ?- per PCP note ? * Trazodone ? ? 50mg? * Duloxetine ?- 30mg ? * Wellbutrin?? - 300mg?xl?? Migraine prevention medication contraindications: would avoid all antihypertensive treatments, including beta-blockers, as patient is prone to hypotension. Would avoid Aimovig due to risk for worsening cramps. Will follow-up upon review of above and patient to follow-up in clinic in 3-6 months or sooner prn. Orders: Orders MR head/brain wo/w con 10/14/24 C55 - Malignant neoplasm of uterus, part unspecified, R51.9 - Headache, unspecified Medications: Refilled riboflavin (vitamin B2) 400 mg PO DAILY 30 tabs 6RF 30 days M79.7 - Fibromyalgia sumatriptan succinate 50 - 100 mg orally at onset of headache, may repeat in 2 hrs PRN; max 2 tabs per day or 4 tabs/week (may take with Ibuprofen) 12 tabs 6RF migraine headache 30 days M79.7 - Fibromyalgia magnesium oxide may hold for loose stools 400 mg PO BEDTIME 30 tabs 6RF 30 days M79.7 - Fibromyalgia Discontinued sumatriptan succinate do not exceed 4 doses per 24 hrs Discontinued Reason: Doctor's Order 50 mg PO Q2-4H PRN 14 tabs 1RF migraine headache Coding Level of Care Code Tele Est Pt Level 4 (10470) Diagnoses Worsening headaches R51.9 Migraine without status migrainosus, not intractable, unspecified migraine type G43.909 Intractability: not intractable Migraine type: unspecified Status migrainosus presence: without status migrainosus Neck pain M54.2 Sleep difficulties G47.9
--- OUTSIDE RECORDS SUMMARY | 2024-10-15 07:37 | XMS_ITS | Clinical Summary ---
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 Primary insomnia 03/23/2019 Myalgia 03/23/2019 Resolved Problems Problem Noted Date Diagnosed Date Resolved Date Tobacco dependence 05/02/2015 0 Overview (05/02/2015): 05/02/2015- quit once before using zyban, then started again d/t stress, wants to quit again and will use pills again Immunizations Immunization Administration Dates Next Due Hep B, Adult/Adol ([id number]/RECOMBIVAX-AD ULT) 05/02/2015 INFLUENZA, SEASONAL, INJECTABLE 05/02/2015 PFIZER [...] 01/27/2017 (Leeann farrar by Outside Provider), 11/01/2013 Alcohol and Drug Screen 02/11/2024 11/11/19 24, 05/10/2021, 01/09/2021, Additional history exists Depression Monitoring 02/11/2024 11/11/2023 , 05/10/2021, 01/09/2021, Additional history exists Diabetes Screening 08/21/2024 08/21/2021, 0 08/21/2021, 11/18/2019, Additional history exists [id number] ( season) 2024 021, 08/26/2020 Imm-Influenza (#1) 2024 05/02/2015, 1 , 02/20/2008, [...] EST) 01/29/2024 3:00 AM EST Diomedes Hammer [facility] IM RFL MAMMO Final Res ult * (ABNORMAL) LIPID PANEL (08/21/2021 12:00 PM EDT) CHOLESTEROL, TOTAL 204(H) <200 mg/dL [employer] [facility] HDL CHOLESTEROL 71 > OR = 50 mg/dL [employer] [facility] TRIGLYCERIDES 65 <150 mg/dL [employer] [facility] LDL-CHOLESTEROL 117(H) 99 mg/dL (calc) [employer] [facility] Comment: Reference range: <100 Desirable range <100 mg/dL for primary prevention; <70 mg/dL for patients with CHD or diabetic patients with > or = 2 CHD risk factors. LDL-C is now calculated using the Jose calculation, which is a validated novel method providing better accuracy than the Friedewald equation in the estimation of LDL-C. Drake PERRY et al. SAYDA. 2013;310(19): 2043-9640 (http://education.ZoweeTV/faq/ABV358) CHOL/HDLC RATIO 2.9 <5.0 (calc) [employer] NON-HDL CHOLESTEROL 133(H) <130 mg/dL (calc) [employer] Comment: For patients with diabetes plus 1 major ASCVD risk factor, treating to a non-HDL-C goal of <100 mg/dL (LDL-C of <70 mg/dL) is considered a therapeutic option. Blood Blood / Unknown 08/21/2021 1 2:00 PM EDT 08/21/2021 12:00 PM EDT Diomedes Hammer [facility] [employer] - BLOOD DRAW Final Re sult [employer] [address] [address], [employer] [address] [place] [address],[place] [address] * (ABNORMAL) COMPRE METAB PANEL (08/21/2021 12:00 PM EDT) GLUCOSE 84 65 - 99 mg/dL [employer] Comment: Fasting reference interval UREA NITROGEN (BUN) 18 7 - 25 mg/dL [employer] CREATININE (blood) 0.83 0.50 - 0.99 mg/dL [employer] EGFR 91 > OR = 60 mL/min/1 .73m2 [employer] Comment: The eGFR is based on the CKD-EPI 2020 equation. To calculate the new eGFR from a previous Creatinine or Cystatin C result, go to https://www.kidney.org/professionals/ kdoqi/gfr%5Fcalculator BUN/CREATININE RATIO NOT APPLICABLE 6 - [employer] SODIUM 139 135 - 146 mmol/L [employer] POTASSIUM 4.2 3.5 - 5.3 mmol/L [employer] CHLORIDE 102 98 - 110 mmol/L [employer] CARBON DIOXIDE 30 20 - 32 mmol/L [employer] [place] [employer] CALCIUM 10.1 8.6 - 10.2 mg/dL [employer] PROTEIN, TOTAL 7.6 6.1 - 8.1 g/dL [employer] ALBUMIN 4.7 3.6 - 5.1 g/dL [employer] [place] [employer] GLOBULIN 2.9 1.9 - 3.7 g/dL (calc) [employer] [facility] ALBUMIN/GLOBUL IN RATIO 1.6 1.0 - 2.5 (calc) [employer] [place] [employer] BILIRUBIN, TOTAL 0.5 0.2 - 1.2 mg/dL [employer] [facility] ALKALINE PHOSPHATASE 85 31 - 125 U/L [employer] [facility] AST 30 10 - 30 U/L [employer] [facility] ALT 34(H) 6 - 29 U/L [employer] [facility] Blood Blood / Unknown 08/21/2021 1 2:00 PM EDT 08/21/2021 12:00 PM EDT Diomedes Hammer [facility] - BLOOD DRAW Edited R esult - Final [employer] [facility] [address] [address], [employer] [facility] [address] [address] * HEPATITIS A,B,C PANEL (11/18/2019 2:10 PM EDT) HEPATITIS B SURFACE ANTIBODY NEGATIVE NEGATIVE [facility] HEPATITIS B SURFACE ANTIGEN NEGATIVE NEGATIVE [facility] Comment: Over the counter supplements containing high doses of biotin may interfere with this assay. If interference is suspected, patients shoud be retested after refraining from biotin supplements for 72 hours. HEPATITIS C VIRUS DIAGNOSTIC NEGATIVE NEGATIVE [facility] HEPATITIS A ANTIBODY TOTAL NEGATIVE NEGATIVE [facility] Comment: Over the counter supplements containing high doses of biotin may interfere with this assay. If interference is suspected, patients shoud be retested after refraining from biotin supplements for 72 hours. HEPATITIS B CORE ANTIBODY NEGATIVE NEGATIVE [facility] Blood Blood / Unknown 11/18/2019 2 :10 PM EDT 11/18/2019 6:13 PM EDT Narrative [facility] - 11/18/2019 7:57 PM EDT [employer], a member of [address] [address] Yard Inspector - Chante Vance MD PT ID [id number] ORD# [id number] [facility]es [facility] - BLOOD DRAW Edited R esult - Final [employer] [address], [place] [phone] * HIV SCREENING TEST (05/02/2015 4:34 PM EDT) HIV 1/2 AB/AG NEG NEG [facility] Blood specimen (specimen) Blood / Unknown 05/02/2015 4:34 PM EDT us Brennan Blackmon MD LAB - BLOOD DRAW Final Result [facility] [address] [place] [address], [place] [phone] from Last 3 Months or Most Recently Relevant to Health Maintenance [place] [address] [employer] Care Teams Employer Relations Representative Relationship Specialty Start Date End Date Diomedes Hammer FNP [address] [place] [address] PCP - General Family Medicine, MERCHANDISE EXAMINER 05/02/20
--- OUTSIDE RECORDS SUMMARY | 2024-10-15 07:37 | XMS_ITS | Clinical Summary ---
Author Organization [facility] Address [address] [place] [address] Care Team Providers Care Seconds Grader Name Role Phone Harman Diomedes BETSY Primary Care Provider +1- [phone] Surgical History Surgery Date Site/Laterality Comments COLPOSCOPY PROCEDURE: [place] COLPOSCOPY ENTIRE VAGINA W/CERVIX IF PRESENT Medical History Medical History Date Comments Neuropathy 09/03/2017 DX:Neuropathy; C OMMENT: EMG pending through [facility] pain management; ? 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 Patient reported greatest concern at this time [...] RESULTING AGENCY - 11/26/2017 12:51 PM EDT [id number] THINPREP PAP, IMAGED: NEGATIVE FOR SQUAMOUS INTRAEPITHELIAL [...] Recently Relevant to Health Maintenance Care Teams Seconds Grader Relationship Specialty Start Date End Date Diomedes Hammer NP PCP - General 03/18/23
== END 2024-10-15 08:21 | disposition home or self-care (01) ==
LOC: HO.HSMS 07:34
PROVIDERS: Visit Provider Nurse Practitioner Family
DX: R51.9 Headache, unspecified (principal); G43.909 Migraine, unspecified, not intractable, without status migrainosus; M54.2 Cervicalgia; G47.9 Sleep disorder, unspecified
CPT/HCPCS: 99214

== ENCOUNTER → 2024-10-15 07:33 | Outpatient (BNVA) | payer OTHER, SELFPAY | PROVIDERS: Visit Provider Nurse Practitioner Family | DX: G43.909 Migraine, unspecified, not intractable, without status migrainosus (principal); M54.2 Cervicalgia; G47.9 Sleep disorder, unspecified; Z13.89 Encounter for screening for other disorder ==

== ENCOUNTER 2024-10-25 13:40 | Outpatient (REF) | payer OTHER, SELFPAY ==
--- OUTSIDE RECORDS SUMMARY | 2024-10-25 19:06 | XMS_ITS | Clinical Summary ---
Author Organization [facility] Address [address] [place] [address] Care Team Providers Care Christmas Tree Grower Name Role Phone Harman Diomedes BETSY Primary Care Provider +1- [phone] Surgical History Surgery Date Site/Laterality Comments COLPOSCOPY PROCEDURE: [place] COLPOSCOPY ENTIRE VAGINA W/CERVIX IF PRESENT Medical History Medical History Date Comments Neuropathy 09/03/2017 DX:Neuropathy; C OMMENT: EMG pending through [facility] pain management; ? 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 Patient reported greatest concern at this time [...] RESULTING AGENCY - 11/26/2017 12:51 PM EDT [id number] THINPREP PAP, IMAGED: NEGATIVE FOR SQUAMOUS INTRAEPITHELIAL [...] Recently Relevant to Health Maintenance Care Teams Christmas Tree Grower Relationship Specialty Start Date End Date Diomedes Hammer NP PCP - General 03/18/23
== END 2024-10-25 13:41 | disposition home or self-care (01) ==
LOC: HO.MRI 13:40
PROVIDERS: Visit Provider Nurse Practitioner Family
DX: Z13.89 Encounter for screening for other disorder (principal)

== ENCOUNTER → 2024-11-10 13:45 | Outpatient (BNV) | payer OTHER, SELFPAY | PROVIDERS: Visit Provider Radiology Diagnostic Radiology | DX: G44.221 Chronic tension-type headache, intractable (principal) | CPT/HCPCS: 70553 ==

== ENCOUNTER 2024-11-10 13:48 | Outpatient (REF) | payer OTHER, SELFPAY ==
--- NOTE | ~2024-11-10 | MR_ITS ---
EXAMINATION: MR BRAIN WITHOUT AND WITH CONTRAST CLINICAL INFORMATION: Headache. History of cervical cancer, 2016. COMPARISON: None available. TECHNIQUE: Multiplanar, multisequence MRI of the brain was obtained before and after the intravenous administration of 5.5 mL gadolinium based (Gadavist) without reported immediate complications.. FINDINGS: No acute intracranial hemorrhage mass effect, midline shift, hydrocephalus or herniation. Ward-white matter differentiation is normal. No restricted diffusion. No abnormal enhancing lesion within the intra-axial or the extra-axial compartment of the cranium. Posterior cranial fossa contents demonstrated no signal abnormality or enhancing lesion. Craniocervical junction demonstrates normal position of the cerebellar tonsils. Sellar/suprasellar region is normal. Flow-void signal within the main vessels is normal. The main cerebral venous sinuses are patent without intraluminal filling defects. MR/MR head/brain wo/w con IMPRESSION: No acute or structural brain abnormality. No abnormal enhancement. Electronically signed by: Luis Soliman MD 11/10/2024 02:57 PM EDT
--- OUTSIDE RECORDS SUMMARY | 2024-11-10 15:10 | XMS_ITS | Clinical Summary ---
Author Organization [facility] Address [address] [place] [address] Care Team Providers Care Wellness Consultant Name Role Phone Harman Diomedes BETSY Primary Care Provider +1- [phone] Surgical History Surgery Date Site/Laterality Comments COLPOSCOPY PROCEDURE: [place] COLPOSCOPY ENTIRE VAGINA W/CERVIX IF PRESENT Medical History Medical History Date Comments Neuropathy 09/03/2017 DX:Neuropathy; C OMMENT: EMG pending through [facility] pain management; ? 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; COMMENT: 07/29/17 referral [...] of 3 - 19+ 3-dose series) 11/20/1999 HPV Vaccines (1 - 3-dose SCD M series) 11/20/2007 Cervical Cancer Screening: P ap Smear 11/14/2018 11/14/2017 Breast Cancer Screening 05/15/2020 05/15/2018 HIV Screening 01/08/2022 Hepatitis C Screening 01/08/2022 Social Influencers of Health Screening 01/08/2022 Depression Screening 02/11/2024 COVID-19 Vaccine (1 - 2023-2 5 season) 2024 Influenza Vaccine (#1) 2024 RSV Immunization Adult Patie nts (1 - 1-dose 75+ series) 11/20/2055 HIB Vaccines Aged Out No longer eligi [...] at the time of the examination, via client support coordinator. Patient reported greatest concern at this time [...] RESULTING AGENCY - 11/26/2017 12:51 PM EDT [id number] THINPREP PAP, IMAGED: NEGATIVE FOR SQUAMOUS INTRAEPITHELIAL [...] Recently Relevant to Health Maintenance Care Teams Wellness Consultant Relationship Specialty Start Date End Date Diomedes Hammer NP PCP - General 03/18/23
== END 2024-11-10 13:49 | disposition home or self-care (01) ==
LOC: HO.MRI 13:48
PROVIDERS: Visit Provider Nurse Practitioner Family
DX: R51.9 Headache, unspecified (principal); C55 Malignant neoplasm of uterus, part unspecified
CPT/HCPCS: 70553; A9585

== ENCOUNTER 2024-12-04 11:37 | Outpatient (AMB) | payer OTHER, SELFPAY ==
--- OUTSIDE RECORDS SUMMARY | 2024-12-04 11:39 | XMS_ITS | Clinical Summary ---
Author Organization [facility] Address [address] [place] [address] Care Team Providers Care Dope Firer Name Role Phone Harman Diomedes BETSY Primary Care Provider [phone]- [phone] Surgical History Surgery Date Site/Laterality Comments COLPOSCOPY PROCEDURE: [place] COLPOSCOPY ENTIRE VAGINA W/CERVIX IF PRESENT Medical History Medical History Date Comments Neuropathy 09/03/2017 DX:Neuropathy; C OMMENT: EMG pending through [facility] pain management; ? 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 Patient reported greatest concern at this time [...] RESULTING AGENCY - 11/26/2017 12:51 PM EDT [id number] THINPREP PAP, IMAGED: NEGATIVE FOR SQUAMOUS INTRAEPITHELIAL [...] Recently Relevant to Health Maintenance Care Teams Dope Firer Relationship Specialty Start Date End Date Diomedes Hammer NP PCP - General 03/18/23
--- NOTE | 2024-12-04 11:40 | MHC.OFFWIV ---
Intake Vital Signs 12/04/24 11:41 Height 5 ft 5 in Weight 132 lb 8 oz BMI 22.0 BP 110/70 Blood Pressure Location Lt brachial Pulse 86 Pulse Source Pulse Oximeter Temp 98.0 F Temp Source Oral Pulse Oximetry (%) 97 Intake Visit Reasons: EP Blurry vision Intake Note: pt is here for blurry vision, states her pupil is dilated and eyes are burning since yesterday Patient Tobacco Use Status: Never used Tobacco Allergies fentanyl Allergy (Unknown, Verified 12/04/24 11:49) Dizziness Medication List - Last Reconciled 12/04/24 by Raquel Capone, TILLER MAN-BC baclofen 10 mg PO BEDTIME PRN 30 days bupropion HCl XL 300 mg PO QAM butalbital-acetaminophen 50-325 mg 1 tab PO Q4H PRN cholecalciferol (vitamin D3) 25 mcg PO DAILY diaper,brief,adult,disposable (W[employer] Plus Adult Briefs) As directed diclofenac sodium 1% 2 grams topical BID diphenhydramine HCl 50 mg PO BEDTIME diphenoxylate-atropine 2.5-0.025 mg 1 tab PO QID PRN dronabinol 5 mg PO BID duloxetine 30 mg PO DAILY estradiol (Divigel) transdermal galcanezumab-gnlm (Emgality Pen) 120 mg subcut QMONTH 30 days hydrocortisone 2.5% 1 appl topical BID PRN hydroxyzine HCl 25 mg PO TID PRN lidocaine 5% 1 patch topical DAILY loratadine 10 mg PO DAILY lorazepam 0.5 mg PO BEDTIME PRN magnesium oxide 400 mg PO BEDTIME 30 days megestrol 5 mL PO DAILY multivitamin 1 tab PO DAILY omeprazole 40 mg PO DAILY progesterone micronized 100 mg PO BEDTIME riboflavin (vitamin B2) 400 mg PO DAILY 30 days sucralfate 10 mL PO QID sumatriptan succinate 50 - 100 mg orally at onset of headache, may repeat in 2 hrs PRN; max 2 tabs per day or 4 tabs/week (may take with Ibuprofen) 30 days topiramate 25 mg PO DAILY trazodone 50 mg PO BEDTIME PRN vilazodone 20 mg PO QAM Do you need a note to return to daycare/school/sports/work: No HPI HPI Comments History of Present Illness Details 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 I read athis note, it was only that of blurred vision She also called her Optho and scheduled a future appt. exam Dressed to go to [employer] [facility] accompanied by son Pupils dilated bilat, L>R approx 9mm on L and 8 mm on right, neither reactive or accommodating, + photophobia , conjunctive clear Head atraumatic Neck supple FROM LIU x 4, normal strength, tone, reflexes , speech normal. Plan Advised based on exam she needs to proceed to ED for eval and tx. Son will bring her. She is stable. She should fu with PCP after acute care workup. There was lots of needs to explain my rational several times, owning to the complexity of this exam After much discussion, she proceeded to ED accompanied by Son, in private vehicle . TIME: 40 minutes [facility] Medical History Acute respiratory disease Uterine cancer Surgical History History of tubal ligation Social History Housing: House Alcohol intake: never Patient Tobacco Use Status: Never used Tobacco e-Cigarette/Vaping Use: Never Used Second Hand Smoke Exposure: No service: No Current occupational status: disabled Cognitive needs: No Hearing needs: No Vision needs: No Physical Exam Vital Signs: Last Vital Signs Temp 98.0 F 12/04/24 11:41 Pulse 86 12/04/24 11:41 BP 110/70 12/04/24 11:41 Pulse Ox 97 12/04/24 11:41 BMI result Body Mass Index 22.0 Office Procedures Vision Screening 84412 - Vision Screening Assessment & Plan Assessment & Plan (1) Pupillary dilation: Code(s): H57.04 - Mydriasis (2) Anisocoria: Code(s): H57.02 - Anisocoria (3) Blurred vision, bilateral: Code(s): H53.8 - Other visual disturbances Plan . Coding Level of Care Code Est Pt Level 5 (08237) Diagnoses Pupillary dilation H57.04 Anisocoria H57.02 Blurred vision, bilateral H53.8 CPT Codes Vision Screening - Vision Screenin - Vision Screening ([id number]) Vision Screening - Vision Screenin - Vision Screening ([id number]) Vision Screening Right Eye: 20/30 Left Eye: 20/30 Bilateral: 20/30 Corrected: Pass 43400 - Vision Screening
[2024-12-04 11:41] VITALS: BP 110/70; PULSE 86; TEMP 36.7; O2SAT 97; BMI 22.0
== END 2024-12-04 12:06 | disposition home or self-care (01) ==
PROVIDERS: Visit Provider Nurse Practitioner Family
DX: H57.04 Mydriasis (principal); H57.02 Anisocoria; H53.8 Other visual disturbances

== ENCOUNTER → 2024-12-04 11:37 | Outpatient (BNVA) | payer OTHER, SELFPAY | PROVIDERS: Visit Provider Nurse Practitioner Family | DX: H57.04 Mydriasis (principal); H57.02 Anisocoria; H53.8 Other visual disturbances | CPT/HCPCS: 99212 ==

== ENCOUNTER 2024-12-04 12:34 | Emergency (ER) | payer OTHER, SELFPAY ==
--- NOTE | ~2024-12-04 | CT_ITS ---
CLINICAL HISTORY: Bilaterally dilated pupils. Nonreactive CT head without contrast Comparison: Brain MRI dated 11/10/2024 Findings: No intracranial mass, midline shift, hydrocephalus, or acute hemorrhage. No CT evidence of acute ischemia. Visualized paranasal sinuses and mastoid air cells normal. Orbits unremarkable. No skull fracture Impression: 1. No acute intracranial abnormalities. This document has been electronically signed by: Clem Obrien MD on 12/04/2024 14:10:28
[2024-12-04 12:40] VITALS: BP 123/76; PULSE 86; RESP 18; TEMP 36.2; O2SAT 99; BMI 22.4
--- NOTE | 2024-12-04 12:47 | ED.NEUROSD ---
HPI - Neuro Symptoms/Deficit General Chief Complaint: Neuro Symptoms/Deficit Stated Complaint: eye issue Time Seen by Provider: 12/04/24 13:32 Source: patient Mode of arrival: ambulatory Limitations: no limitations History of Present Illness ED Provider: Dr. Дмитрий Carlin HPI Narrative: 44-year-old female history of fibromyalgia, GERD, depression, anxiety, uterine cancer, migraine headaches who was referred to the emergency department from our urgent care clinic for evaluation of bilateral dilatation of her pupils. The patient told me that yesterday her eyes were itchy and she used an eye drop in both eyes. She states that since that time she has had blurred vision despite wearing her glasses. I was able to obtain a picture of the eye drop in the patient used atropine sulfate 1% solution. The patient denied headache, nausea or vomiting. She denied lightheadedness, dizziness, numbness or weakness of her extremities. The patient states she does have migraine headaches and did take an Excedrin migraine earlier today. She also states she gets a shot of medications for her migraines but the last shot was given 1 month prior. Related Data Home Medications ?Medication ?Instructions ?Recorded ?Confirmed bupropion HCl 300 mg 24 hr tablet, 300 mg PO QAM 12/26/23 12/04/24 extended release butalbital 50 mg-acetaminophen 325 1 tab PO Q4H PRN 12/26/23 12/04/24 mg tablet diaper,brief,adult,disposable 12/26/23 12/04/24 ([employer] [facility] Adult Briefs) diclofenac sodium 1 % topical gel 2 g topical BID 12/26/23 12/04/24 diphenhydramine HCl 50 mg capsule 50 mg PO BEDTIME 12/26/23 12/04/24 diphenoxylate-atropine 2.5 1 tab PO QID PRN 12/26/23 12/04/24 mg-0.025 mg tablet dronabinol 5 mg capsule 5 mg PO BID 12/26/23 12/04/24 duloxetine 30 mg capsule,delayed 30 mg PO DAILY 12/26/23 12/04/24 release hydrocortisone 2.5 % topical cream 1 appl topical BID PRN 12/26/23 12/04/24 hydroxyzine HCl 25 mg tablet 25 mg PO TID PRN 12/26/23 12/04/24 lidocaine 5 % topical patch 1 patch topical DAILY 12/26/23 12/04/24 loratadine 10 mg tablet 10 mg PO DAILY 12/26/23 12/04/24 lorazepam 0.5 mg tablet 0.5 mg PO BEDTIME PRN 12/26/23 12/04/24 megestrol 625 mg/5 mL (125 mg/mL) 5 ml PO DAILY 12/26/23 12/04/24 oral suspension multivitamin 1 tab PO DAILY 12/26/23 12/04/24 sucralfate 100 mg/mL oral 10 ml PO QID 12/26/23 12/04/24 suspension trazodone 50 mg tablet 50 mg PO BEDTIME PRN 12/26/23 12/04/24 estradiol 0.75 mg/0.75 gram (0.1%) transdermal 12/04/24 12/04/24 transdermal gel packet (Divigel) progesterone micronized 100 mg 100 mg PO BEDTIME 12/04/24 12/04/24 capsule vilazodone 20 mg tablet 20 mg PO QAM 12/04/24 12/04/24 Previous Rx's ?Medication ?Instructions ?Recorded topiramate 25 mg tablet 25 mg PO DAILY #30 tabs 01/30/24 omeprazole 40 mg capsule,delayed 40 mg PO DAILY #90 caps 03/29/24 release cholecalciferol (vitamin D3) 25 25 mcg PO DAILY #90 caps 04/15/24 mcg (1,000 unit) capsule baclofen 10 mg tablet 10 mg PO BEDTIME PRN muscle spasm 09/11/24 30 days #30 tabs magnesium oxide 400 mg (241.3 mg 400 mg PO BEDTIME 30 days #30 tabs 10/15/24 magnesium) tablet riboflavin (vitamin B2) 400 mg 400 mg PO DAILY 30 days #30 tabs 10/15/24 tablet sumatriptan succinate 100 mg tablet 50 - 100 mg (0.5 - 1 x 100 mg) PO 10/15/24 .COMPLEX PRN migraine headache 30 days #12 tabs galcanezumab-gnlm 120 mg/mL 120 mg subcut QMONTH 30 days #1 mL 11/26/24 subcutaneous pen injector (Emgality Pen) Allergies Allergy/AdvReac Type Severity Reaction Status Date / Time fentanyl Allergy Unknown Dizziness Verified 12/04/24 12:40 Review of Systems Review of Systems: Yes all other systems are reviewed and are negative PMFSH Past Medical History Medical History Acute respiratory disease Uterine cancer Surgical History History of tubal ligation Social History Social History Housing: House Alcohol intake: never Patient Tobacco Use Status: Never used Tobacco e-Cigarette/Vaping Use: Never Used Second Hand Smoke Exposure: No Advance Directives: No Advance Directives Information Provided: No Do you have a plan to hurt others: No Plan service: No Current occupational status: disabled Cognitive needs: No Hearing needs: No Vision needs: No Physical Exam Exam: Exam: Exam: General: Awake, alert in no distress Head: Normocephalic, atraumatic EENT: Pupils were symmetrically dilated, do not react to light, sclera and conjunctiva are normal, mouth with no erythema or exudates Neck: Supple, no adenopathy Lung: breath sounds symmetric, no wheezing, no rales and no rhonchi Chest: symmetric movement, nontender Heart: regular rate and rhythm, normal S1, S2 no murmurs or rubs Abdomen: soft, non-tender, nondistended, normal bowel sounds Back: no vertebral tenderness, no CVAT Extremities: no deformities, moves all extremities symmetrically, no edema Neuro: General: ?Awake, alert, oriented, normal speech Cranial nerves: ?Cranial nerves ?intact Strength: ?Moves all extremities symmetrically, strength 5/5 Cerebellar: ?Good [id number]-finger, good rapid finger movement, normal heel to garcia Psych: Pleasant, cooperative Vital Signs: Vital Signs: Last Vital Signs Temp 97.2 F 12/04/24 12:40 Pulse 86 12/04/24 12:40 Resp 18 12/04/24 12:40 BP 123/76 12/04/24 12:40 Pulse Ox 99 12/04/24 12:40 O2 Del Method Room Air 12/04/24 12:40 BMI result Body Mass Index 22.4 Course Course Course Narrative: This is a Rapid Medical Exam performed in triage by Shilpa Aly PA-C. Full HPI, ROS and PE to be performed by primary ED provider. 44-year-old female presenting to the ED c/o bilateral blurry vision since speaking yesterday morning. Was sent in by [facility] due to vision changes in bilaterally dilated pupils PE: Bilaterally dilated pupils, nonreactive. No focal deficits Plan: Labs, head CT Medical Decision Making Medical Decision Making [facility] Narrative: 44-year-old female history of fibromyalgia, GERD, depression, anxiety, uterine cancer, migraine headaches who was referred to the emergency department from our urgent care clinic for evaluation of bilateral dilatation of her pupils. The patient told me that yesterday her eyes were itchy and she used an eye drop in both eyes. She states that since that time she has had blurred vision despite wearing her glasses. I was able to obtain a picture of the eye drop in the patient used atropine sulfate 1% solution. The patient denied headache, nausea or vomiting. She denied lightheadedness, dizziness, numbness or weakness of her extremities.The patient states she does have migraine headaches and did take an Excedrin migraine earlier today. She also states she gets a shot of medications for her migraines but the last shot was given 1 month prior. Physical examination did reveal fixed and dilated pupils bilaterally which were nonreactive. Neurologic exam was nonfocal. Differential diagnosis: ?Includes but is not limited to migraine headache, chemical exposure, adverse drug effect, or illicit drug use, atropine exposure Course: My independent interpretation patient's laboratory evaluation is as follows: CBC was normal. CMP was normal. ESR and CRP were normal and not elevated. Patient's dilated pupils were caused by accidental use of atropine drops to both eyes. I did discuss this with the patient and the patient's son. Patient was advised to wear dark sunglasses until her pupils go back to normal. I also advised her to throw with a atropine drops when she gets home since she does not accidentally use these drops again. Patient was given printed and verbal instructions and discharged home. Differential Diagnosis Differential Diagnoses: The differential diagnosis associated with the presentation includes (See above) Admission/Observation Consideration of admission/observation: Escalation of care including admission/observation considered (Yes) Lab Data [facility] Lab Attestation statement: I reviewed the patient's lab results. 12/04/24 12:56 12/04/24 12:56 Labs: Lab Results 12/04/24 Range/Units 12:56 WBC 3.8 L (4.8-10.8) X10*3/uL RBC 4.17 L (4.20-5.50) X10*6/uL Hgb 12.5 (12.0-16.0) g/dl Hct 36.6 L (37.0-47.0) % MCV 87.8 (80.0-98.0) fL MCH 30.0 (27.0-33.0) pg MCHC 34.2 (31.0-35.0) g/dl RDW 12.4 (11.0-16.0) % Plt Count 222 (160-400) X10*3/uL MPV 8.5 L (9.4-12.3) fL Immature Gran % (Auto) 0.0 (0.0-0.4) % Neut % (Auto) 35.2 L (45-73) % Lymph % (Auto) 54.5 H (20-40) % Gladwin % (Auto) 7.7 (2-11) % Eos % (Auto) 2.1 (0-4) % Baso % (Auto) 0.5 (0-2) % Lymph # (Auto) 2.1 (1.2-4.9) X10*3/uL Gladwin # (Auto) 0.3 (0.1-1.2) X10*3/uL Eos # (Auto) 0.1 (0.0-0.4) X10*3/uL Baso # (Auto) 0.0 (0.0-0.2) X10*3/uL Abs Immat Gran (auto) 0.00 (0.00-0.03) X10*3/uL Absolute Neuts (auto) 1.3 L (2.0-8.3) x10*3/uL Absolute Nucleated RBC 0.000 (0.0-0.012) X10*3/uL Nucleated RBC % (auto) 0.0 (0.0-0.2) /100WBC ESR 13 (0-20) MM/HR PT 11.5 (10.9-12.4) SEC INR 1.0 (0.9-1.1) Sodium 141 (135-145) mmol/L Potassium 4.0 (3.3-5.1) mmol/L Chloride 106 (96-108) mmol/L Carbon Dioxide 27 (22-29) mmol/L Anion Gap 12 (12-20) BUN 19 H (9-16) mg/dL Creatinine 0.90 (0.5-1.4) mg/dL Estim Creat Clear Calc 71.7 Estimated GFR > 60 Random Glucose 87 (60-115) mg/dL Calcium 9.5 (8.4-10.2) mg/dL Total Bilirubin 0.4 (0.0-1.0) mg/dL Direct Bilirubin 0.1 (0.0-0.5) mg/dL AST 31 (5-31) U/L ALT 34 H (0-31) U/L Alkaline Phosphatase 95 (39-117) U/L C-Reactive Protein < 0.04 (< or = 0.50) mg/dL Total Protein 7.7 (6.5-8.0) g/dL Albumin 4.8 (3.5-5.0) g/dL Independent Historian Clinical information obtained from an independent historian. History obtained from or confirmed by: Other (Son) External Record Review External record reviewed: Office record (Urgent care note) Chronic Conditions Patient?s care impacted by: Other (Migraines syndrome) Discharge Plan Discharge Clinical Impression: Fixed dilated pupils of both eyes Patient Disposition: Home, Self-Care Additional Instructions: Your dilated pupils (dark part of your eyes) are due to using atropine eyedrops. . These drops are sometimes used for eye pain for corneal abrasions were iritis and they affect the muscles of your pupils to make your eyes bigger. This medication will wear off over the next 24 hours and your vision should come back to normal. You should throw away the atropine drops a you do not accidentally use them again While your eyes are dilated you need to wear dark sunglasses to prevent you from hurting the back of your eyes from being exposed to too much light. Your blood work was unremarkable. Follow-up with your eye doctor in 2 days. Please return to the emergency department if your symptoms get worse or if you develop any symptoms that are concerning to you. Prescriptions: No Action cholecalciferol (vitamin D3) 25 mcg (1,000 unit) capsule 25 mcg PO DAILY Qty: 90 3RF baclofen 10 mg tablet 10 mg PO BEDTIME PRN (Reason: muscle spasm) 30 Days Qty: 30 0RF Emgality Pen 120 mg/mL pen injector 120 mg subcut QMONTH 30 Days Qty: 1 6RF Rx Instructions: Maintenance dose of 120 mg subcu q month. bupropion HCl 300 mg tablet extended release 24 hr 300 mg PO QAM butalbital-acetaminophen 50-325 mg tablet 1 tab PO Q4H PRN diphenhydramine HCl 50 mg capsule 50 mg PO BEDTIME diphenoxylate-atropine 2.5-0.025 mg tablet 1 tab PO QID PRN dronabinol 5 mg capsule 5 mg PO BID Rx Instructions: administer before lunch and evening meal/dinner duloxetine 30 mg capsule,delayed release(DR/EC) 30 mg PO DAILY hydrocortisone 2.5 % cream 1 appl topical BID PRN hydroxyzine HCl 25 mg tablet 25 mg PO TID PRN lidocaine 5 % adhesive patch,medicated 1 patch topical DAILY Rx Instructions: leave on most painful area for up to 12 hrs loratadine 10 mg tablet 10 mg PO DAILY lorazepam 0.5 mg tablet 0.5 mg PO BEDTIME PRN megestrol 625 mg/5 mL (125 mg/mL) suspension 5 ml PO DAILY multivitamin Tablet 1 tab PO DAILY sucralfate 100 mg/mL suspension 10 ml PO QID Rx Instructions: swish in mouth and swallow; use after food/drink trazodone 50 mg tablet 50 mg PO BEDTIME PRN (DME) [employer] [facility] Adult Briefs Misc See Rx Instructions .Route Rx Instructions: As directed diclofenac sodium 1 % gel 2 g topical BID Rx Instructions: apply to single elbow, wrist or hand; for hand includes palm/fingers/back of hand topiramate 25 mg tablet 25 mg PO DAILY Qty: 30 1RF omeprazole 40 mg capsule,delayed release(DR/EC) 40 mg PO DAILY Qty: 90 1RF riboflavin (vitamin B2) 400 mg tablet 400 mg PO DAILY 30 Days Qty: 30 6RF sumatriptan succinate 100 mg tablet 50 - 100 mg PO .COMPLEX PRN (Reason: migraine headache) 30 Days Qty: 12 6RF Rx Instructions: 50 - 100 mg orally at onset of headache, may repeat in 2 hrs PRN; max 2 tabs per day or 4 tabs/week (may take with Ibuprofen) magnesium oxide 400 mg (241.3 mg magnesium) tablet 400 mg PO BEDTIME 30 Days Qty: 30 6RF Rx Instructions: may hold for loose stools progesterone micronized 100 mg capsule 100 mg PO BEDTIME vilazodone 20 mg tablet 20 mg PO QAM estradiol [Divigel] 0.75 mg/0.75 gram (0.1%) gel in packet transdermal Print Language: Kinyarwanda
[2024-12-04 13:01] LABS: MANUAL DIFF FLAG NO
[2024-12-04 13:02] LABS: Hematocrit 36.6 % (37.0-47.0); Hemoglobin 12.5 g/dl (12.0-16.0); Imm Gran Abs Auto 0.00 X10*3/uL (0.00-0.03); Imm Gran Pct Auto 0.0 % (0.0-0.4); Lymphocytes Absolute Auto 2.1 X10*3/uL (1.2-4.9); Mean Corpuscular HGB Conc 34.2 g/dl (31.0-35.0); Mean Corpuscular Hemoglobin 30.0 pg (27.0-33.0); Mean Corpuscular Volume 87.8 fL (80.0-98.0); NRBC Abs Auto 0.000 X10*3/uL (0.0-0.012); NRBC Pct Auto 0.0 /100WBC (0.0-0.2); Platelet Count 222 X10*3/uL (160-400); Red Blood Count 4.17 X10*6/uL (4.20-5.50); White Blood Count 3.8 X10*3/uL (4.8-10.8)
[2024-12-04 13:09] LABS: INTERNATIONAL NORM RATIO 1.0 (0.9-1.1); Prothrombin Time 11.5 SEC (10.9-12.4)
[2024-12-04 13:43] LABS: Alanine Aminotransferase 34 U/L (0-31); Albumin Level 4.8 g/dL (3.5-5.0); Alkaline Phosphatase 95 U/L (39-117); Anion Gap 12 (12-20); Aspartate Amino Transferase 31 U/L (5-31); Blood Urea Nitrogen 19 mg/dL (9-16); Calcium 9.5 mg/dL (8.4-10.2); Carbon Dioxide 27 mmol/L (22-29); Chloride 106 mmol/L (96-108); Creatinine Clr Calc Pharmacy 71.7; Estimated Glomerular Filt Rate > 60; Potassium 4.0 mmol/L (3.3-5.1); Sodium 141 mmol/L (135-145); Total Protein 7.7 g/dL (6.5-8.0)
[2024-12-04 13:48] LABS: Erythrocyte Sedimentation Rate 13 MM/HR (0-20)
[2024-12-04 14:39] VITALS: BP 123/76; PULSE 86; RESP 18; TEMP 36.2; O2SAT 99
== END 2024-12-04 14:40 | disposition home or self-care (01) ==
PROVIDERS: Physician Assistant; Emergency Provider Emergency Medicine Emergency Medical Services; PCP Internal Medicine
DX: H57.04 Mydriasis (principal); L29.89 Other pruritus
CPT/HCPCS: 36415; 70450; 80048; 80076; 85025; 85610; 85652; 86140; 99282; 99284

== ENCOUNTER → 2024-12-04 12:47 | Outpatient (BNV) | payer OTHER, SELFPAY | PROVIDERS: Emergency Provider Emergency Medicine Emergency Medical Services; PCP Internal Medicine; Visit Provider Radiology Diagnostic Radiology | DX: H57.04 Mydriasis (principal) | CPT/HCPCS: 70450 ==